=== PATIENT | female | born 1945 | race Caucasian/White ===

== ENCOUNTER 2017-02-24 01:41 | Emergency (ER) | payer OTHER ==
[~2017-02-24] VITALS: Ht 165.1 cm; Wt 86.2 kg
[2017-02-24 02:00] LABS: Allen Test Modified; Blood 02Sat 95.2 % (96-100); Blood COHb 0.4 % (0.5-1.5); Blood MetHb 0.4 % (0.0-1.5); HCO3 20.7 mmol/L (22-26.0); HHb 4.8 % (0.0-5.0); MODE MASK - BIPAP; O2Hb 94.4 % (94.0-97.0); PCO2 50.5 mmHg (35.0-45.0); PCO2(T) 50.5 mmHg (35.0-45.0); PIP 12; PO2 97.4 mmHg (80.0-100.0); PO2(T) 97.4 mmHg (80.0-100.0); Sample Type Arterial
[2017-02-24] MEDS ORDERED: FUROSEMIDE 20 MG/2 ML VIAL IV ONE (02:00)
[2017-02-24] MEDS ORDERED: IPRATROPIUM BROM 0.5 MG/2.5ML INH SOL NEB ONE (02:00)
[2017-02-24] MEDS ORDERED: ALBUTEROL SULF 2.5 MG/0.5ML(0.5%) NEB SOLN NEB ONE (02:00)
[2017-02-24 02:23] LABS: Basophils # (auto) 0 uL; Basophils % (auto) 0.2 % (0.0-2.0); Eosinophils # (auto) 0.1 uL; Eosinophils % (auto) 0.3 % (0.0-7.0); Hematocrit 37.5 % (36.0-46.0); Hemoglobin 12.4 g/dL (12.2-16.2); Lymphocytes # (auto) 1.4 uL; Lymphocytes % (auto) 6.2 % (10.0-50.0); Mean Corpuscular Hemoglobin 33.2 pg (28.0-32.0); Mean Corpuscular Volume 100.8 fL (80.0-100.0); Monocytes % (auto) 4.3 % (0.0-12.0); Neutrophils # (auto) 20.1 uL; Platelet Count (auto) 427 10^3/uL (140-450); Red Cell Distribution Width 17.1 % (11.6-16.0); SUSPECT VIEW TRANSMISSION; White Blood Cell 22.6 10^3/uL (4.4-10.8)
[2017-02-24 02:39] LABS: INR 0.98 (0.9-1.15); Partial Thromboplastin Time 25.5 sec (22.64-33.71); Prothrombin Time 10.6 sec (9.37-12.3)
[2017-02-24 02:40] LABS: Temperature: 21.2 C (20.0-25.0)
[2017-02-24 02:42] LABS: Albumin 3.9 g/dL (3.4-5.0); Anion Gap 14 (5-15); Aspartate Aminotransferase 8 U/L (15-37); BUN/Creatinine Ratio 7.4; Calcium 8.9 mg/dL (8.5-10.1); Carbon Dioxide 24 mmol/L (21-32); Chloride 102 mmol/L (98-107); GFR African American 4 mL/min; GFR Non-African American 4 mL/min; Glucose 186 mg/dL (74-106); Magnesium 2.8 mg/dL (1.6-2.6); Sodium 140 mmol/L (136-145)
[2017-02-24] MEDS ORDERED: ACETAMINOPHEN 325 MG TAB PO ONE (02:45)
[2017-02-24] MEDS ORDERED: methylPREDNISolone SOD SUCC 125 MG/2 ML VL IV ONE (02:45)
[2017-02-24 02:50] LABS: Alkaline Phosphatase 116 U/L (45-117); Bilirubin, Total 0.6 mg/dL (0.2-1.0); Total Protein 8.2 g/dL (6.4-8.2)
[2017-02-24 02:51] LABS: Blood Urea Nitrogen 81 mg/dL (7-18); Potassium 5.9 mmol/L (3.5-5.1)
[2017-02-24] MEDS ORDERED: SODIUM POLYSTYRENE SULF 15GM/60ML SUSP PO ONE (03:30)
[2017-02-24 03:58] LABS: Blood 02Sat 58.6 % (96-100); MODE MASK - BIPAP; PIP 12; Sample Type Venous; Spont Vt 458; Venous Blood COHb 0.3 % (0.5-1.5); Venous Blood Gas pH 7.271 (7.34-7.37); Venous Blood MetHb 0.5 % (0.0-1.5); Venous Blood O2Hb 58.1 % (94.0-97.0); Venous Blood PO2 < 38.3 mmHg (38.0-42.0); Venous Deoxyhemoglobin 41.1 % (0.0-5.0)
[2017-02-24 04:11] VITALS: BP 145/69
[2017-02-24 09:53] LABS: Venous Blood Gas pH 7.271 (7.34-7.37); Venous Blood PCO2 (T) 33.9 mmHg (44.0-46.0)
[2017-02-24 14:27] VITALS: BP 115/41
[2017-02-24 15:26] VITALS: BP 113/65
== END 2017-02-24 15:49 | disposition left against medical advice (07) ==
LOC: ER 01:41 → EDBD 01:41 → ER 15:49
DX: A41.9 Sepsis, unspecified organism (principal); J96.00 Acute respiratory failure, unspecified whether with hypoxia or hypercapnia; I13.2 Hypertensive heart and chronic kidney disease with heart failure and with stage 5 chronic kidney disease, or end stage renal disease; N18.6 End stage renal disease; Z99.2 Dependence on renal dialysis; E87.5 Hyperkalemia; D72.829 Elevated white blood cell count, unspecified
CPT/HCPCS: 36415; 36600; 71010; 80053; 82805; 83735; 83880; 84484; 85025; 85610; 85730; 93005; 94640; 94660; 96374; 96375; 99285; J1940; J2930

== ENCOUNTER 2017-10-07 19:13 | Emergency (ER) | payer OTHER ==
[~2017-10-07] VITALS: Ht 157.5 cm; Wt 91.6 kg
[2017-10-07 20:40] LABS: Basophils # (auto) 0.1 uL; Basophils % (auto) 0.7 % (0.0-2.0); Eosinophils # (auto) 0.2 uL; Eosinophils % (auto) 1.9 % (0.0-7.0); Hematocrit 27.9 % (36.0-46.0); Hemoglobin 9.2 g/dL (12.2-16.2); Lymphocytes # (auto) 1.2 uL; Lymphocytes % (auto) 10.7 % (10.0-50.0); Mean Corpuscular Hemoglobin 33.4 pg (28.0-32.0); Mean Corpuscular Hgb Conc. 33.1 g/dL (32.0-36.0); Monocytes # (auto) 0.9 uL; Monocytes % (auto) 7.9 % (0.0-12.0); Neutrophils # (auto) 8.7 uL; Neutrophils % (auto) 78.8 % (37.0-80.0); Nucleated Red Blood Cells % 0.1 %; Platelet Count (auto) 266 10^3/uL (140-450); Red Blood Cells 2.76 10^6/uL (4.0-5.20); Red Cell Distribution Width 14.1 % (11.8-14.3); White Blood Cell 11.1 10^3/uL (4.4-10.8)
[2017-10-07 20:56] LABS: Alanine Aminotransferase 10 U/L (13-56); Albumin 3.2 g/dL (3.4-5.0); Anion Gap 11 (5-15); Aspartate Aminotransferase 14 U/L (15-37); Blood Urea Nitrogen 65 mg/dL (7-18); Calcium 9.3 mg/dL (8.5-10.1); Carbon Dioxide 27 mmol/L (21-32); Chloride 99 mmol/L (98-107); Glucose 90 mg/dL (74-106); Magnesium 2.7 mg/dL (1.6-2.6); Potassium 5.4 mmol/L (3.5-5.1); Sodium 137 mmol/L (136-145)
[2017-10-07 21:04] LABS: Alkaline Phosphatase 86 U/L (45-117); BUN/Creatinine Ratio 6.3; Bilirubin, Total 0.7 mg/dL (0.2-1.0); GFR African American 5 mL/min; GFR Non-African American 4 mL/min; Total Protein 7.6 g/dL (6.4-8.2)
[2017-10-08 00:57] VITALS: BP 128/59
== END 2017-10-08 07:14 | disposition left against medical advice (07) ==
LOC: ER 19:13
DX: I13.2 Hypertensive heart and chronic kidney disease with heart failure and with stage 5 chronic kidney disease, or end stage renal disease (principal); N18.6 End stage renal disease; I50.9 Heart failure, unspecified; Z99.2 Dependence on renal dialysis; E87.5 Hyperkalemia; D64.9 Anemia, unspecified
CPT/HCPCS: 36415; 71010; 80053; 83735; 83880; 84484; 85025; 85379; 93005

== ENCOUNTER 2017-12-29 17:28 | Inpatient (IN) | payer OTHER ==
[~2017-12-29] VITALS: Ht 157.5 cm; Wt 93.5 kg
[2017-12-29 19:29] LABS: Basophils # (auto) 0 uL; Hemoglobin 11.5 g/dL (12.2-16.2); Lymphocytes % (auto) 13.6 % (10.0-50.0); Monocytes # (auto) 0.7 uL
[2017-12-29 19:30] LABS: Basophils % (auto) 0.6 % (0.0-2.0); Eosinophils # (auto) 0.2 uL; Eosinophils % (auto) 2.5 % (0.0-7.0); Hematocrit 35.2 % (36.0-46.0); Mean Corpuscular Hemoglobin 33.2 pg (28.0-32.0); Mean Corpuscular Hgb Conc. 32.8 g/dL (32.0-36.0); Mean Corpuscular Volume 101.3 fL (80.0-100.0); Monocytes % (auto) 10.1 % (0.0-12.0); Neutrophils # (auto) 5.2 uL; Neutrophils % (auto) 73.2 % (37.0-80.0); Nucleated Red Blood Cells % 0.1 %; Platelet Count (auto) 265 10^3/uL (140-450); Red Blood Cells 3.47 10^6/uL (4.0-5.20); Red Cell Distribution Width 15.1 % (11.8-14.3); White Blood Cell 7.2 10^3/uL (4.4-10.8)
[2017-12-29 19:48] LABS: Alanine Aminotransferase 15 U/L (13-56); Albumin 3.7 g/dL (3.4-5.0); Alkaline Phosphatase 72 U/L (45-117); Anion Gap 9 (5-15); Aspartate Aminotransferase 13 U/L (15-37); BUN/Creatinine Ratio 5.3; Bilirubin, Total 0.8 mg/dL (0.2-1.0); Blood Urea Nitrogen 43 mg/dL (7-18); Calcium 9.8 mg/dL (8.5-10.1); Carbon Dioxide 27 mmol/L (21-32); Chloride 99 mmol/L (98-107); GFR African American 6 mL/min; GFR Non-African American 5 mL/min; Glucose 74 mg/dL (74-106); Magnesium 3.1 mg/dL (1.6-2.6); Potassium 5.5 mmol/L (3.5-5.1); Sodium 135 mmol/L (136-145); Total Protein 7.9 g/dL (6.4-8.2)
[2017-12-29] MEDS ORDERED: NITROGLYCERIN 0.4 MG SL TAB SL PRN (22:30)
[2017-12-29] MEDS ORDERED: ONDANSETRON HCL 4 MG/2 ML VIAL IV PRN (22:30)
[2017-12-29] MEDS ORDERED: TEMAZEPAM 15 MG CAP PO PRN (22:30)
[2017-12-29] MEDS ORDERED: IBUPROFEN 800 MG TAB PO PRN (22:30)
[2017-12-29] MEDS ORDERED: MORPHINE SULFATE 4 MG/ML SYR/VIAL IV PRN (22:30)
[2017-12-29 23:40] VITALS: BP 121/57
[2017-12-30] MEDS ORDERED: B COCAP12 PO (01:36)
[2017-12-30] MEDS ORDERED: MID10T PO (01:36)
[2017-12-30] MEDS ORDERED: BISO5TAB44 PO (01:36)
[2017-12-30] MEDS ORDERED: FOLI1TAB6 PO (01:36)
[2017-12-30] MEDS ORDERED: AMIO200T33 PO (01:36)
[2017-12-30] MEDS ORDERED: ATOR20TA PO (01:36)
[2017-12-30 05:00] VITALS: BP 134/73
[2017-12-30] MEDS: MIDODRINE HCL 10 MG TAB PO SCH ×2 (06:00→06:10)
[2017-12-30 07:23] LABS: Basophils # (auto) 0.1 uL; Basophils % (auto) 0.9 % (0.0-2.0); Eosinophils # (auto) 0.2 uL; Eosinophils % (auto) 2.8 % (0.0-7.0); Hematocrit 32.8 % (36.0-46.0); Hemoglobin 10.7 g/dL (12.2-16.2); Lymphocytes % (auto) 15.5 % (10.0-50.0); Mean Corpuscular Hemoglobin 32.9 pg (28.0-32.0); Mean Corpuscular Hgb Conc. 32.5 g/dL (32.0-36.0); Mean Corpuscular Volume 101.1 fL (80.0-100.0); Monocytes # (auto) 0.7 uL; Monocytes % (auto) 11.1 % (0.0-12.0); Neutrophils # (auto) 4.7 uL; Neutrophils % (auto) 69.7 % (37.0-80.0); Platelet Count (auto) 245 10^3/uL (140-450); Red Blood Cells 3.25 10^6/uL (4.0-5.20); Red Cell Distribution Width 14.9 % (11.8-14.3); White Blood Cell 6.7 10^3/uL (4.4-10.8)
[2017-12-30 07:43] LABS: BUN/Creatinine Ratio 5.1; Calcium 9.3 mg/dL (8.5-10.1); Potassium 5.4 mmol/L (3.5-5.1)
[2017-12-30 08:00] VITALS: BP 143/48
[2017-12-30 09:00] VITALS: BP 143/48
[2017-12-30] MEDS: AMIODARONE HCL 200 MG TAB PO SCH (09:13)
[2017-12-30] MEDS: CALCIUM ACETATE 667 MG CAP PO SCH ×3 (09:13→18:43)
[2017-12-30] MEDS ORDERED: SODIUM POLYSTYRENE SULF 15GM/60ML SUSP PO ONE (11:00)
[2017-12-30 12:00] VITALS: BP 124/67
[2017-12-30] MEDS ORDERED: MIDODRINE HCL 10 MG TAB PO SCH (12:00)
[2017-12-30] MEDS ORDERED: LOPERAMIDE HCL 2 MG CAP PO ONE (15:15)
[2017-12-30] MEDS ORDERED: IOHEXOL 350 MG/ML 100ML IJ ONE (16:53)
[2017-12-30 17:00] VITALS: BP 104/57
[2017-12-30 21:55] VITALS: BP 113/59
[2017-12-30] MEDS: ATORVASTATIN 20 MG TAB PO SCH (22:18)
[2017-12-31] VITALS (7 sets, daily range): BP systolic 101–139; BP diastolic 40–63
[2017-12-31 05:49] LABS: Basophils # (auto) 0.1 uL; Basophils % (auto) 1.1 % (0.0-2.0); Eosinophils # (auto) 0.2 uL; Eosinophils % (auto) 2.8 % (0.0-7.0); Hematocrit 32.6 % (36.0-46.0); Hemoglobin 10.7 g/dL (12.2-16.2); Lymphocytes # (auto) 1.1 uL; Lymphocytes % (auto) 17.1 % (10.0-50.0); Mean Corpuscular Hemoglobin 33.1 pg (28.0-32.0); Mean Corpuscular Hgb Conc. 32.9 g/dL (32.0-36.0); Mean Corpuscular Volume 100.8 fL (80.0-100.0); Monocytes # (auto) 0.9 uL; Monocytes % (auto) 13.4 % (0.0-12.0); Neutrophils # (auto) 4.2 uL; Neutrophils % (auto) 65.6 % (37.0-80.0); Nucleated Red Blood Cells % 0.1 %; Platelet Count (auto) 236 10^3/uL (140-450); Red Blood Cells 3.23 10^6/uL (4.0-5.20); White Blood Cell 6.4 10^3/uL (4.4-10.8)
[2017-12-31 06:11] LABS: Albumin 3.2 g/dL (3.4-5.0); BUN/Creatinine Ratio 5.4; Bilirubin, Total 0.6 mg/dL (0.2-1.0); Calcium 9.3 mg/dL (8.5-10.1)
[2017-12-31] MEDS: CALCIUM ACETATE 667 MG CAP PO SCH ×3 (08:42→18:33)
[2017-12-31] MEDS ORDERED: EPOETIN ALFA 2,000 UNIT/1 ML VIAL IV ONE (10:45)
[2017-12-31] MEDS ORDERED: SODIUM CHL 0.9% 1000 ML BAG XX ONE (10:45)
[2017-12-31] MEDS ORDERED: HEPARIN 1,000 UNITS/ml 1ML VIAL IV ONE ×3 (14:30)
[2017-12-31] MEDS ORDERED: ALBUMIN 25% 100 ML IV ONE (14:30)
[2017-12-31] MEDS: AMIODARONE HCL 200 MG TAB PO SCH (18:33)
[2017-12-31] MEDS: ATORVASTATIN 20 MG TAB PO SCH (21:17)
[2018-01-01 04:59] VITALS: BP 140/60
[2018-01-01] MEDS ORDERED: CALC667C5 PO (06:18)
[2018-01-01 09:00] VITALS: BP 129/72
[2018-01-01] MEDS: CALCIUM ACETATE 667 MG CAP PO SCH ×2 (09:07→12:14)
[2018-01-01] MEDS: AMIODARONE HCL 200 MG TAB PO SCH (09:07)
[2018-01-01 13:00] VITALS: BP 133/76
[2018-01-01] MEDS ORDERED: CARVEDILOL 3.125 MG TAB PO SCH (22:00)
== END 2018-01-01 21:39 | disposition home or self-care (01) | DRG 291 ==
LOC: EDBD 17:28 → ER 17:28 → EAST 17:29 → TELE-EAST 23:12
PROVIDERS: ADMIT Nurse Practitioner Family; ATTEND Internal Medicine
PROC: 5A1D70Z Performance of Urinary Filtration, Intermittent, Less than 6 Hours Per Day (ICD-10-PCS; principal; 2017-12-31)
DX: I13.2 Hypertensive heart and chronic kidney disease with heart failure and with stage 5 chronic kidney disease, or end stage renal disease (principal); N18.6 End stage renal disease; J96.90 Respiratory failure, unspecified, unspecified whether with hypoxia or hypercapnia; I50.23 Acute on chronic systolic (congestive) heart failure; J98.11 Atelectasis; E87.5 Hyperkalemia; I48.91 Unspecified atrial fibrillation; D64.9 Anemia, unspecified; M10.9 Gout, unspecified; E78.5 Hyperlipidemia, unspecified; G47.30 Sleep apnea, unspecified; I70.0 Atherosclerosis of aorta; J44.9 Chronic obstructive pulmonary disease, unspecified; Z82.49 Family history of ischemic heart disease and other diseases of the circulatory system; Z83.3 Family history of diabetes mellitus; Z86.73 Personal history of transient ischemic attack (TIA), and cerebral infarction without residual deficits; Z87.891 Personal history of nicotine dependence; Z91.19 Patient's noncompliance with other medical treatment and regimen; Z95.810 Presence of automatic (implantable) cardiac defibrillator; Z99.2 Dependence on renal dialysis; Z90.49 Acquired absence of other specified parts of digestive tract; Z79.899 Other long term (current) drug therapy
CPT/HCPCS: 36415; 36600; 71045; 71275; 80048; 80053; 82805; 83735; 83880; 84484; 85025; 85379; 87081; 90935; 93005; 93306; P9047

== ENCOUNTER 2018-02-02 05:56 | Emergency (ER) | payer OTHER ==
[~2018-02-02] VITALS: Ht 157.5 cm; Wt 88.5 kg
[~2018-02-02 05:56] MED LIST: AMIO200T33 PO; ATOR20TA PO; B COCAP12 PO; BISO5TAB44 PO; CALC667C5 PO; FOLI1TAB6 PO; MID10T PO
[2018-02-02 06:34] LABS: Basophils # (auto) 0.1 uL; Basophils % (auto) 0.8 % (0.0-2.0); Eosinophils # (auto) 0.1 uL; Eosinophils % (auto) 0.8 % (0.0-7.0); Hematocrit 36.9 % (36.0-46.0); Hemoglobin 11.7 g/dL (12.2-16.2); Lymphocytes % (auto) 6.9 % (10.0-50.0); Mean Corpuscular Hemoglobin 32.1 pg (28.0-32.0); Mean Corpuscular Hgb Conc. 31.8 g/dL (32.0-36.0); Mean Corpuscular Volume 100.9 fL (80.0-100.0); Monocytes # (auto) 0.8 uL; Monocytes % (auto) 5.3 % (0.0-12.0); Neutrophils # (auto) 12.7 uL; Neutrophils % (auto) 86.2 % (37.0-80.0); Nucleated Red Blood Cells % 0.2 %; Platelet Count (auto) 339 10^3/uL (140-450); Red Blood Cells 3.66 10^6/uL (4.0-5.20); Red Cell Distribution Width 15.4 % (11.8-14.3); White Blood Cell 14.7 10^3/uL (4.4-10.8)
[2018-02-02 07:10] LABS: Alanine Aminotransferase 16 U/L (13-56); Albumin 3.4 g/dL (3.4-5.0); Alkaline Phosphatase 76 U/L (45-117); Anion Gap 13 (5-15); Aspartate Aminotransferase 8 U/L (15-37); BUN/Creatinine Ratio 6.4; Bilirubin, Total 0.6 mg/dL (0.2-1.0); Blood Urea Nitrogen 74 mg/dL (7-18); Calcium 9.6 mg/dL (8.5-10.1); Carbon Dioxide 25 mmol/L (21-32); Chloride 102 mmol/L (98-107); GFR African American 4 mL/min; GFR Non-African American 3 mL/min; Glucose 106 mg/dL (74-106); Magnesium 3.2 mg/dL (1.6-2.6); Potassium 5.4 mmol/L (3.5-5.1); Sodium 140 mmol/L (136-145); Total Protein 8.1 g/dL (6.4-8.2)
[2018-02-02] MEDS ORDERED: ALBUTEROL SULF 2.5 MG/0.5ML(0.5%) NEB SOLN NEB STA (07:22)
[2018-02-02] MEDS ORDERED: SODIUM BICARBONATE 8.4% INJ 50ML SYRINGE IV ONE (07:30)
[2018-02-02] MEDS ORDERED: CALCIUM GLUC 4.65meq/50ml D5AE 50 ML IV ONE (07:30)
[2018-02-02] MEDS ORDERED: DEXTROSE (50%) 50ML SYRG IV ONE (07:30)
[2018-02-02] MEDS ORDERED: InsuLIN REG 1unit/0.01ml Soln (100units/ml) IV ONE (07:30)
[2018-02-02] MEDS ORDERED: PIPERACILLIN-TAZOB 3.375GM 100 ML IV ONE (07:45)
[2018-02-02 09:06] VITALS: BP 123/51
== END 2018-02-02 09:27 | disposition short-term general hospital (02) ==
LOC: EDBD 05:56 → ER 06:00
DX: I13.2 Hypertensive heart and chronic kidney disease with heart failure and with stage 5 chronic kidney disease, or end stage renal disease (principal); N18.6 End stage renal disease; E87.5 Hyperkalemia; I50.9 Heart failure, unspecified; J44.9 Chronic obstructive pulmonary disease, unspecified; E78.5 Hyperlipidemia, unspecified; Z90.89 Acquired absence of other organs; Z90.49 Acquired absence of other specified parts of digestive tract
CPT/HCPCS: 36415; 71045; 80053; 82962; 83605; 83735; 83880; 84484; 85025; 87040; 93005; 94640; 96365; 96375; 99291; J0610; J1815; J2543; J7042

== ENCOUNTER 2018-05-17 14:40 | Emergency (ER) | payer OTHER ==
[~2018-05-17] VITALS: Ht 157.5 cm; Wt 88.5 kg
[2018-05-17 15:57] LABS: Hemoglobin 11.7 g/dL (12.2-16.2); Mean Corpuscular Volume 102.4 fL (80.0-100.0); Neutrophils # (auto) 6.2 uL; White Blood Cell 8.6 10^3/uL (4.4-10.8)
[2018-05-17 15:59] LABS: Basophils # (auto) 0.1 uL; Basophils % (auto) 0.7 % (0.0-2.0); Eosinophils # (auto) 0.2 uL; Eosinophils % (auto) 1.8 % (0.0-7.0); Hematocrit 35.6 % (36.0-46.0); Lymphocytes # (auto) 1.5 uL; Lymphocytes % (auto) 17.9 % (10.0-50.0); Mean Corpuscular Hemoglobin 33.6 pg (28.0-32.0); Mean Corpuscular Hgb Conc. 32.8 g/dL (32.0-36.0); Monocytes # (auto) 0.7 uL; Monocytes % (auto) 7.6 % (0.0-12.0); Platelet Count (auto) 329 10^3/uL (140-450); Red Blood Cells 3.48 10^6/uL (4.0-5.20)
[2018-05-17 16:12] LABS: Albumin 3.5 g/dL (3.4-5.0)
[2018-05-17 16:19] LABS: Potassium 6.9 mmol/L (3.5-5.1)
[2018-05-17 16:20] LABS: Bilirubin, Total 0.6 mg/dL (0.2-1.0); Total Protein 8.3 g/dL (6.4-8.2)
[2018-05-17] MEDS ORDERED: InsuLIN REG 1unit/0.01ml Soln (100units/ml) IV ONE (17:00)
[2018-05-17] MEDS ORDERED: DEXTROSE (50%) 50ML SYRG IV ONE (17:00)
[2018-05-17] MEDS ORDERED: SODIUM POLYSTYRENE SULF 15GM/60ML SUSP PO ONE (17:00)
[2018-05-17] MEDS ORDERED: SODIUM BICARBONATE 8.4% INJ 50ML SYRINGE IV ONE (17:15)
[2018-05-18 00:11] VITALS: BP 144/72
== END 2018-05-18 00:39 | disposition short-term general hospital (02) ==
LOC: ER 14:40
DX: T82.898A Other specified complication of vascular prosthetic devices, implants and grafts, initial encounter (principal); I13.2 Hypertensive heart and chronic kidney disease with heart failure and with stage 5 chronic kidney disease, or end stage renal disease; I50.9 Heart failure, unspecified; N18.6 End stage renal disease; R11.0 Nausea; E87.5 Hyperkalemia; J44.9 Chronic obstructive pulmonary disease, unspecified; E78.5 Hyperlipidemia, unspecified; Z99.2 Dependence on renal dialysis; Z88.6 Allergy status to analgesic agent; Z88.8 Allergy status to other drugs, medicaments and biological substances; Z79.899 Other long term (current) drug therapy; Z86.73 Personal history of transient ischemic attack (TIA), and cerebral infarction without residual deficits; Z90.49 Acquired absence of other specified parts of digestive tract; Z95.810 Presence of automatic (implantable) cardiac defibrillator; Y84.1 Kidney dialysis as the cause of abnormal reaction of the patient, or of later complication, without mention of misadventure at the time of the procedure; Y92.89 Other specified places as the place of occurrence of the external cause
CPT/HCPCS: 36415; 71045; 80053; 84132; 84484; 85025; 93005; 96374; 96375; 99291; J1815; J7042

== ENCOUNTER 2019-07-29 08:08 | Emergency (ER) | payer OTHER ==
[~2019-07-29] VITALS: Ht 167.6 cm; Wt 86.2 kg
[2019-07-29] MEDS ORDERED: DOPamine 1600MCG/ML D5W 250 ML IV ONE (10:00)
[2019-07-29 10:15] VITALS: BP 119/63
== END 2019-07-29 10:32 | disposition short-term general hospital (02) ==
LOC: EDBD 08:08 → ER 08:08
DX: I60.9 Nontraumatic subarachnoid hemorrhage, unspecified (principal); G93.41 Metabolic encephalopathy; I13.2 Hypertensive heart and chronic kidney disease with heart failure and with stage 5 chronic kidney disease, or end stage renal disease; N18.6 End stage renal disease; I50.9 Heart failure, unspecified; Z99.2 Dependence on renal dialysis; J44.9 Chronic obstructive pulmonary disease, unspecified; E78.00 Pure hypercholesterolemia, unspecified; Z86.73 Personal history of transient ischemic attack (TIA), and cerebral infarction without residual deficits; Z88.5 Allergy status to narcotic agent; Z88.6 Allergy status to analgesic agent; Z88.8 Allergy status to other drugs, medicaments and biological substances
CPT/HCPCS: 70450; 71045; 73030; 93005; 96365; 99291; J1265

== ENCOUNTER 2020-06-08 17:16 | Inpatient (IN) | payer OTHER ==
[~2020-06-08] VITALS: Ht 157.5 cm; Wt 94.7 kg
[2020-06-08] MEDS ORDERED: cefTRIAXone 1GM/50ML D5W 50 ML IV ONE ×2 (17:28→17:30)
[2020-06-08] MEDS ORDERED: DexAMETHasone SOD PHOS 10MG/1ML VIAL INJ ONE (17:28)
[2020-06-08] MEDS ORDERED: DexAMETHasone SOD PHOS 10MG/1ML VIAL INJ IV ONE (17:30)
[2020-06-08] MEDS ORDERED: DOXYCYCLINE 100 MG TAB/CAP PO ONE (17:30)
[2020-06-08 18:34] LABS: Basophils # (auto) 0 10 ^3/uL (0-0.2); Eosinophils # (auto) 0 10 ^3/uL (0-0.8); Hemoglobin 10.4 g/dL (12.2-16.2); Lymphocytes # (auto) 0.7 10 ^3/uL (0.4-5.4); Neutrophils # (auto) 6.1 10 ^3/uL (1.6-8.6); White Blood Cell 7.8 10^3/uL (4.4-10.8)
[2020-06-08 18:36] LABS: Basophils % (auto) 0.2 % (0.0-2.0); Hematocrit 31.3 % (36.0-46.0); Lymphocytes % (auto) 9.1 % (10.0-50.0); Mean Corpuscular Hemoglobin 33.6 pg (28.0-32.0); Mean Corpuscular Hgb Conc. 33.1 g/dL (32.0-36.0); Mean Corpuscular Volume 101.4 fL (80.0-100.0); Neutrophils % (auto) 77.7 % (37.0-80.0); Nucleated Red Blood Cells % 0.1 %; Platelet Count (auto) 253 10^3/uL (140-450); Red Blood Cells 3.09 10^6/uL (4.0-5.20); Red Cell Distribution Width 14.8 % (11.8-14.3)
[2020-06-08 18:42] LABS: Albumin 2.7 g/dL (3.4-5.0); Calcium 7.1 mg/dL (8.5-10.1); Magnesium 2.4 mg/dL (1.6-2.6); Potassium 3.8 mmol/L (3.5-5.1)
[2020-06-08 18:51] LABS: BUN/Creatinine Ratio 6.9; Bilirubin, Total 0.9 mg/dL (0.2-1.0); CRP High Sensitivity 8.85 mg/dL (< 0.3); Total Protein 6.6 g/dL (6.4-8.2)
[2020-06-08] MEDS ORDERED: ACETAMINOPHEN 325 MG TAB PO PRN (21:30)
[2020-06-08] MEDS ORDERED: ONDANSETRON HCL 4 MG/2 ML VIAL IV PRN (21:30)
[2020-06-08] MEDS ORDERED: ACETAMINOPHEN 500 MG TAB PO PRN (21:30)
[2020-06-08] MEDS ORDERED: MIDODRINE HCL 10 MG TAB PO PRN (21:30)
[2020-06-08] MEDS ORDERED: DOCUSATE SOD 100 MG CAP PO PRN (21:30)
[2020-06-08] MEDS: ALBUTEROL SULF HFA 90MCG INH 200DOSE IN SCH (22:00)
--- NOTE | 2020-06-08 22:08 | NUR ---
DEBBY TX, ALBUTEROL 90MCG HELD DUE TO PENDING COVID RESULTS.
[2020-06-08 22:13] VITALS: BP 138/72
[2020-06-08] MEDS: CALCIUM ACETATE 667 MG CAP PO SCH (23:03)
[2020-06-08] MEDS: DOXYCYCLINE 100 MG TAB/CAP PO SCH (23:03)
[2020-06-08] MEDS: ATORVASTATIN 20 MG TAB PO SCH (23:03)
[2020-06-08 23:20] VITALS: BP 127/61
--- NOTE | 2020-06-08 23:20 | NUR ---
Telemetry admit from ER EDILBERTOHOMAR admitted to Telemetry unit after SBAR received. Patient oriented to FAUSTO DURAN, primary RN, unit, room, bed, and unit policies regarding patient care and visiting hours. Patient now on continuous telemetry monitoring, tele box #3 and telemetry reading on arrival to unit is normal sinus rhythm. Patient placed on bedside oxygen 5l nasal cannula, weighed by bedscale and encouraged to call if they need something. All questions and concerns addressed, patient verbalized understanding.Pt is A0x4 no s/s of distress or sob noted.
[2020-06-08 23:48] VITALS: BP 127/61
[2020-06-09] MEDS ORDERED: BUTA1CAP4 PO (03:52)
[2020-06-09] MEDS: CALCIUM ACETATE 667 MG CAP PO SCH ×3 (05:42→22:55)
[2020-06-09 05:53] VITALS: BP 101/36
[2020-06-09] MEDS: ALBUTEROL SULF HFA 90MCG INH 200DOSE IN SCH ×3 (06:00→21:34)
--- NOTE | 2020-06-09 06:54 | NUR ---
closing shift notes pt has no s/s of distress or pain at this time will endorse care to day shift RN
[2020-06-09 07:31] LABS: Basophils # (auto) 0 10 ^3/uL (0-0.2); Basophils % (auto) 0.3 % (0.0-2.0); Eosinophils # (auto) 0 10 ^3/uL (0-0.8); Hematocrit 32.8 % (36.0-46.0); Hemoglobin 10.6 g/dL (12.2-16.2); Lymphocytes # (auto) 0.5 10 ^3/uL (0.4-5.4); Lymphocytes % (auto) 9.5 % (10.0-50.0); Mean Corpuscular Hemoglobin 33.6 pg (28.0-32.0); Mean Corpuscular Hgb Conc. 32.4 g/dL (32.0-36.0); Mean Corpuscular Volume 103.8 fL (80.0-100.0); Monocytes # (auto) 0.1 10 ^3/uL (0-1.3); Monocytes % (auto) 2.6 % (0.0-12.0); Neutrophils # (auto) 4.7 10 ^3/uL (1.6-8.6); Neutrophils % (auto) 87.6 % (37.0-80.0); Nucleated Red Blood Cells % 0.1 %; Platelet Count (auto) 214 10^3/uL (140-450); Red Blood Cells 3.16 10^6/uL (4.0-5.20); Red Cell Distribution Width 14.9 % (11.8-14.3); White Blood Cell 5.4 10^3/uL (4.4-10.8)
--- NOTE | 2020-06-09 07:35 | NUR ---
0600 SCHEDULED MDI NON ADMINISTERED AT THIS TIME. PT PENDING COVID 19 TEST RESULTS. PT IS ON 3LNC, SPO2 94%, HR 56, RR 18. NO S/S OF RESPIRATORY DISTRESS. LUNGS ARE DIMINISHED. WILL CONTINUE TO MONITOR.
[2020-06-09 07:40] LABS: Albumin 2.6 g/dL (3.4-5.0); BUN/Creatinine Ratio 7.5; Bilirubin, Total 0.8 mg/dL (0.2-1.0); Calcium 7.3 mg/dL (8.5-10.1); Total Protein 7.1 g/dL (6.4-8.2)
[2020-06-09 07:41] LABS: Magnesium 2.7 mg/dL (1.6-2.6)
[2020-06-09] MEDS ORDERED: CYANOCOBALAMIN 500 MCG TAB PO SCH (08:00)
--- NOTE | 2020-06-09 08:09 | NUR ---
DRAKE ARNETT RE: CRITICAL BUN 103 AND CREATNINE 13.8 LEFT UNABLE TO REACH WILL RE ABDELRAHMAN IVAN
[2020-06-09] MEDS: DOXYCYCLINE 100 MG TAB/CAP PO SCH ×2 (08:39→22:54)
[2020-06-09 09:00] VITALS: BP 127/65
--- NOTE | 2020-06-09 09:30 | NUR ---
PAGED MD OSCAR RE: CRITICAL BUN 103 AND CREATNINE 13.8. LEFT MESSAGE WITH RODDING MACHINE TENDER SARINA. PER SARINA SHE WILL SEND PAGE OUT. AWAITING CALL BACK AT THIS TIME.
[2020-06-09] MEDS ORDERED: FOLIC ACID 400 MCG TAB PO SCH (10:00)
[2020-06-09] MEDS ORDERED: AMIODARONE HCL 200 MG TAB PO SCH (10:00)
[2020-06-09] MEDS ORDERED: ENOXAPARIN SOD 40 MG/0.4 ML SYRINGE SC SCH (10:00)
[2020-06-09] MEDS ORDERED: BISOPROLOL FUMARATE 2.5 MG PO SCH (10:00)
[2020-06-09] MEDS ORDERED: ASCORBIC ACID 1,000 MG TAB PO SCH (10:00)
[2020-06-09] MEDS ORDERED: ZINC SULFATE 220mg CAP or TAB PO SCH (10:00)
[2020-06-09 12:00] VITALS: BP 122/56
--- NOTE | 2020-06-09 13:04 | NUR ---
PAGED MD ZAVALETA RE: PT COMPLAINING " I HAVE AN UP-SET STOMACH AND HAVE BEEN HAVING CONSISTENT DIARRHEA, IS THERE ANYTHING THAT I CAN GET LIKE IMMODIUM" AWAITING CALL BACK
[2020-06-09] MEDS ORDERED: DEXTROSE (50%) 50ML SYRG IV PRN (13:45)
--- NOTE | 2020-06-09 14:56 | NUR ---
1439 06/09/20 - Faxed to [facility] atn [phone] face sheet,order for transfer to [facility], labs, meds, notice regarding post stabilization. Contacted [facility] supportive employment case manager Kim at [phone], who stated she is working on bed and setting up transportation and will call with an update.
--- NOTE | 2020-06-09 15:29 | NUR ---
1400 MDI NOT ADMINISTERED. PT PENDING COVID 19 TEST RESULT. PT IS ON 2LNC, SPO2 95%, HR 60, RR 20. NO S/S OF RESPIRATORY DISTRESS. LUNGS ARE DIMINISHED.
[2020-06-09 16:00] VITALS: BP 134/70
--- NOTE | 2020-06-09 16:10 | NUR ---
CAROLEE FRAMING MANAGER FROM [facility] CALLED REQUIRED INFORMATION AND WOULD LIKE TO KNOW WHEN PATIENT WILL BE DIALYZED. ACCORDING TO DIALYSIS CENTER THEY WILL BE IN TO DIALYZE PATIENT AROUND 1645. FRAMING MANAGER UPDATED. PER FRAMING MANAGER "PICKUP TIME WILL BE AROUND 1930 LONG DIALYSIS IS FINISHED.
[2020-06-09 16:32] VITALS: BP 122/75
[2020-06-09] MEDS: InsuLIN REG 1unit/0.01ml Soln (100units/ml) SC SCH ×2 (17:00→22:51)
[2020-06-09] MEDS: ACCU-CHEK COMFORT CURVE STRIP VI SCH ×2 (17:00→22:53)
--- NOTE | 2020-06-09 17:45 | NUR ---
CALLED REPORT TO TALA LEDESMA RN AT [facility]
--- NOTE | 2020-06-09 18:32 | NUR ---
COVID SWAB OBTAINED AND WALKED TO LAB BY RESOURCE TALA BENDER
--- NOTE | 2020-06-09 19:20 | NUR ---
Opening Shift Note Assumed care of patient, awake and alert. No S/S of distress/SOB or pain. Instructed on POC and to call for assist PRN, will continue to monitor for changes Q1hr and PRN.
[2020-06-09] MEDS ORDERED: SODIUM CHL 0.9% 1000 ML BAG XX ONE (19:30)
--- NOTE | 2020-06-09 21:36 | NUR ---
MDI TX HELD, PT IN NO RESPIRATORY DISTRESS. COVID RESULTS PENDING.
[2020-06-09 22:00] VITALS: BP 117/54
[2020-06-09] MEDS: ATORVASTATIN 20 MG TAB PO SCH (22:55)
--- NOTE | 2020-06-10 00:08 | NUR ---
Discharge instructions given as ordered. Encourage to follow up with PMD as instructed. All questions and concerns addressed. Patient verbalized understanding. Medication reconciliation form completed and copy given to patient. Telemetry unit returned to ICU. Patient taken to ante room via wheelchair with all personal belongings, accompanied by staff and transportation. No distress noted at time of departure.
[2020-06-10] MEDS ORDERED: DexAMETHasone SOD PHOS 10MG/1ML VIAL INJ IV SCH (10:00)
== END 2020-06-10 00:06 | disposition short-term general hospital (02) | DRG 177 ==
LOC: EDBD 17:16 → ER 17:16 → TELE 17:17 → TELE-EAST 23:20
PROVIDERS: ADMIT Hospitalist; ATTEND Internal Medicine
PROC: 5A1D70Z Performance of Urinary Filtration, Intermittent, Less than 6 Hours Per Day (ICD-10-PCS; principal; 2020-06-09)
DX: U07.1 COVID-19 (principal); N18.6 End stage renal disease; I13.2 Hypertensive heart and chronic kidney disease with heart failure and with stage 5 chronic kidney disease, or end stage renal disease; I48.20 Chronic atrial fibrillation, unspecified; I50.42 Chronic combined systolic (congestive) and diastolic (congestive) heart failure; R05 Cough; E78.5 Hyperlipidemia, unspecified; R19.7 Diarrhea, unspecified; D53.9 Nutritional anemia, unspecified; J44.9 Chronic obstructive pulmonary disease, unspecified; D63.8 Anemia in other chronic diseases classified elsewhere; Z86.73 Personal history of transient ischemic attack (TIA), and cerebral infarction without residual deficits; Z99.2 Dependence on renal dialysis; Z95.810 Presence of automatic (implantable) cardiac defibrillator; Z90.49 Acquired absence of other specified parts of digestive tract
CPT/HCPCS: 36415; 71045; 80053; 80061; 82728; 82962; 83036; 83605; 83615; 83735; 83880; 84484; 85025; 86141; 87040; 87426; 90935; G0378; J0696; J1100; J1642; J1815

== ENCOUNTER 2024-05-17 01:34 | Inpatient (IN) | payer OTHER ==
[~2024-05-17] VITALS: Ht 154.9 cm; Wt 76.3 kg
[~2024-05-17 01:34] MED LIST changes: +BUTA1CAP4 PO; +FOLI-119 PO; -FOLI1TAB6 PO; +MIDO5TAB4 PO; +SEVE800T8 PO
[2024-05-17 02:27] LABS: INR 1.02 (0.9-1.15); Partial Thromboplastin Time 23.1 SEC (24.5-34.5); Prothrombin Time 10.8 sec (9.3-11.8)
[2024-05-17 02:31] LABS: Albumin 3.6 g/dL (3.2-4.8); Alkaline Phosphatase 75 U/L (46-116); Anion Gap 7 (5-15); Aspartate Aminotransferase 9 U/L (13-40); BUN/Creatinine Ratio 5.9 (10.0-20.0); Blood Urea Nitrogen 49 mg/dL (9-23); Calcium 9.7 mg/dL (8.7-10.4); Carbon Dioxide 27 mmol/L (20-30); Chloride 100 mmol/L (98-107); Glucose 82 mg/dL (74-106); Sodium 134 mmol/L (136-145)
[2024-05-17 02:32] LABS: Bilirubin, Total 0.4 mg/dL (0.2-1.0); Total Protein 8.9 g/dL (5.7-8.2)
[2024-05-17 02:50] VITALS: PULSE 64; RESP 22; O2SAT 92
[2024-05-17 02:54] LABS: Alanine Aminotransferase < 9 U/L (7-40)
[2024-05-17 02:56] LABS: Potassium 6.8 mmol/L (3.5-5.1)
[2024-05-17 03:05] LABS: Basophils # (auto) 0.1 10 ^3/uL (0-0.2); Eosinophils # (auto) 0.2 10 ^3/uL (0-0.8); Eosinophils % (auto) 3.1 % (0.0-7.0); Hematocrit 35.1 % (36.0-46.0); Hemoglobin 11.3 g/dL (12.2-16.2); Lymphocytes # (auto) 1.3 10 ^3/uL (0.4-5.4); Lymphocytes % (auto) 20.6 % (10.0-50.0); Mean Corpuscular Hgb Conc. 32.2 g/dL (32.0-36.0); Mean Corpuscular Volume 93.4 fL (80.0-100.0); Monocytes # (auto) 0.7 10 ^3/uL (0-1.3); Monocytes % (auto) 10.9 % (0.0-12.0); Neutrophils # (auto) 4.2 10 ^3/uL (1.6-8.6); Neutrophils % (auto) 64.4 % (37.0-80.0); Nucleated Red Blood Cells % 0.1 %; Red Blood Cells 3.75 10^6/uL (4.0-5.20); Red Cell Distribution Width 17.5 % (11.8-14.3); White Blood Cell 6.5 10^3/uL (4.4-10.8)
[2024-05-17] MEDS: ALBUTEROL SULF 2.5 MG/0.5ML(0.5%) NEB SOLN NEB ONE (03:17)
[2024-05-17] MEDS: SODIUM ZIRCONIUM CYCL 10 GM PAK PO ONE (03:59)
[2024-05-17] MEDS: SODIUM BICARB 8.4% 50Meq/50ml SYR Vial IV ONE ×2 (04:00→04:04)
[2024-05-17] MEDS: InsuLIN REG 1unit/0.01ml Soln (100units/ml) IV ONE (04:01)
[2024-05-17] MEDS: DEXTROSE (50%) 50ML SYRG IV ONE (04:01)
[2024-05-17] MEDS: CALCIUM CHL 100MG/ML 500 MG in D5W 5% 100 ML IV ONE (04:04)
[2024-05-17 08:00] VITALS: PULSE 66; RESP 14; O2SAT 97
[2024-05-17] MEDS ORDERED: IBUPROFEN 600 MG TAB PO PRN (14:30)
[2024-05-17] MEDS ORDERED: ONDANSETRON HCL 4 MG/2 ML VIAL IV PRN (14:30)
[2024-05-17] MEDS ORDERED: DOCUSATE SOD 100 MG CAP PO PRN (14:30)
[2024-05-17] MEDS ORDERED: NITROGLYCERIN 0.4 MG SL TAB SL PRN (14:45)
[2024-05-17 15:51] LABS: % Iron Saturation 22.2 % (15-50)
[2024-05-17] MEDS: SODIUM CHL 0.9% 1000 ML BAG XX ONE (16:00)
[2024-05-17 16:31] VITALS: BP 121/58; PULSE 66; RESP 20; O2SAT 97
[2024-05-17] MEDS: ALBUTEROL SULF 2.5 MG/0.5ML(0.5%) NEB SOLN NEB PRN (16:31)
[2024-05-17 18:10] LABS: Chloride 101 mmol/L (98-107); Sodium 136 mmol/L (136-145)
[2024-05-17 18:11] LABS: Anion Gap 14 (5-15); Carbon Dioxide 21 mmol/L (20-30)
[2024-05-17 18:12] LABS: Calcium 9.6 mg/dL (8.7-10.4)
[2024-05-17 18:16] LABS: Glucose 84 mg/dL (74-106)
[2024-05-17 18:17] LABS: BUN/Creatinine Ratio 6.3 (10.0-20.0); Blood Urea Nitrogen 52 mg/dL (9-23)
[2024-05-17] MEDS: SEVELAMER 800 MG TAB PO SCH (19:20)
[2024-05-17 20:00] VITALS: PULSE 61; RESP 18; O2SAT 99
[2024-05-17] MEDS: ATORVASTATIN 20 MG TAB PO SCH (22:09)
[2024-05-17] MEDS: SODIUM CHLOR 0.9% PF (SALINE LOCK) 10ML VIAL/SYR IV SCH (22:09)
[2024-05-17 23:23] VITALS: BP 123/55; PULSE 64; RESP 19; TEMP 97.4; O2SAT 95
[2024-05-18] VITALS (8 sets, daily range): BP systolic 115–123; BP diastolic 49–81; PULSE 64–75; RESP 14–20; TEMP 97.2–97.7; O2SAT 92–100
[2024-05-18 06:59] LABS: Albumin 3.5 g/dL (3.2-4.8); Alkaline Phosphatase 71 U/L (46-116); Anion Gap 8 (5-15); Aspartate Aminotransferase 11 U/L (13-40); BUN/Creatinine Ratio 4.9 (10.0-20.0); Basophils # (auto) 0.1 10 ^3/uL (0-0.2); Basophils % (auto) 1.2 % (0.0-2.0); Bilirubin, Total 0.5 mg/dL (0.2-1.0); Calcium 9.2 mg/dL (8.7-10.4); Carbon Dioxide 29 mmol/L (20-30); Chloride 99 mmol/L (98-107); Eosinophils # (auto) 0.2 10 ^3/uL (0-0.8); Eosinophils % (auto) 3.2 % (0.0-7.0); Glucose 75 mg/dL (74-106); Hematocrit 32.6 % (36.0-46.0); Hemoglobin 10.6 g/dL (12.2-16.2); Lymphocytes # (auto) 0.8 10 ^3/uL (0.4-5.4); Lymphocytes % (auto) 15.1 % (10.0-50.0); Mean Corpuscular Hemoglobin 29.9 pg (28.0-32.0); Mean Corpuscular Hgb Conc. 32.5 g/dL (32.0-36.0); Mean Corpuscular Volume 92.1 fL (80.0-100.0); Monocytes # (auto) 0.6 10 ^3/uL (0-1.3); Monocytes % (auto) 11.9 % (0.0-12.0); Neutrophils # (auto) 3.6 10 ^3/uL (1.6-8.6); Neutrophils % (auto) 68.6 % (37.0-80.0); Nucleated Red Blood Cells % 0.2 %; Potassium 5.3 mmol/L (3.5-5.1); Red Blood Cells 3.54 10^6/uL (4.0-5.20); Red Cell Distribution Width 16.8 % (11.8-14.3); Sodium 136 mmol/L (136-145); Total Protein 8.4 g/dL (5.7-8.2); White Blood Cell 5.2 10^3/uL (4.4-10.8)
[2024-05-18 07:00] LABS: Alanine Aminotransferase < 9 U/L (7-40); Blood Urea Nitrogen 28 mg/dL (9-23)
[2024-05-18] MEDS: LACTULOSE 20Gm/30ML SOLN PO STA (10:31)
[2024-05-18] MEDS: ASPirin 81 mg TAB PO SCH (10:32)
[2024-05-18] MEDS: B-COMPLEX W/ C & FOLIC ACID(NEPHROVITE TAB) PO SCH (10:32)
[2024-05-18] MEDS ORDERED: ALBUTEROL SULF 2.5 MG/0.5ML(0.5%) NEB SOLN NEB STA (12:50)
[2024-05-18] MEDS: SODIUM ZIRCONIUM CYCL 10 GM PAK PO STA (13:13)
[2024-05-18] MEDS: ALBUTEROL SULF 2.5 MG/0.5ML(0.5%) NEB SOLN NEB ONE (13:36)
[2024-05-18 15:27] LABS: Chloride 98 mmol/L (98-107); Sodium 133 mmol/L (136-145)
[2024-05-18 15:28] LABS: Anion Gap 9 (5-15); Calcium 9.8 mg/dL (8.7-10.4); Carbon Dioxide 26 mmol/L (20-30)
[2024-05-18 15:33] LABS: BUN/Creatinine Ratio 4.5 (10.0-20.0); Blood Urea Nitrogen 27 mg/dL (9-23); Glucose 89 mg/dL (74-106)
== END 2024-05-18 16:30 | disposition home or self-care (01) | DRG 640 ==
LOC: EDBD 01:34 → ER 01:34 → TELE 14:39 → TELE-EAST 23:11
PROVIDERS: ADMIT Internal Medicine Pulmonary Disease; ATTEND Surgery
PROC: 5A1D70Z Performance of Urinary Filtration, Intermittent, Less than 6 Hours Per Day (ICD-10-PCS; principal; 2024-05-17)
DX: E87.70 Fluid overload, unspecified (principal); I50.23 Acute on chronic systolic (congestive) heart failure; J96.21 Acute and chronic respiratory failure with hypoxia; N18.6 End stage renal disease; I13.2 Hypertensive heart and chronic kidney disease with heart failure and with stage 5 chronic kidney disease, or end stage renal disease; E87.20 Acidosis, unspecified; D63.1 Anemia in chronic kidney disease; J44.9 Chronic obstructive pulmonary disease, unspecified; E87.5 Hyperkalemia; I25.10 Atherosclerotic heart disease of native coronary artery without angina pectoris; E78.5 Hyperlipidemia, unspecified; Z88.8 Allergy status to other drugs, medicaments and biological substances; Z79.899 Other long term (current) drug therapy; Z90.49 Acquired absence of other specified parts of digestive tract; Z88.6 Allergy status to analgesic agent; Z99.2 Dependence on renal dialysis; Z86.73 Personal history of transient ischemic attack (TIA), and cerebral infarction without residual deficits; Z83.3 Family history of diabetes mellitus; Z82.0 Family history of epilepsy and other diseases of the nervous system; Z82.49 Family history of ischemic heart disease and other diseases of the circulatory system
CPT/HCPCS: 36415; 71045; 72070; 80048; 80053; 82728; 82962; 83540; 83550; 83880; 84132; 84484; 85025; 85610; 85730; 87081; 87340; 90935; 93005; 94640; G0378; J1642; J1815; J7060

== ENCOUNTER 2024-11-09 06:09 | Inpatient (IN) | payer OTHER ==
[~2024-11-09] VITALS: Ht 157.5 cm; Wt 74.3 kg
[~2024-11-09 06:09] MED LIST changes: -BISO5TAB44 PO; -BUTA1CAP4 PO; -FOLI-119 PO; -MID10T PO
[2024-11-09 07:00] VITALS: PULSE 61; RESP 22; O2SAT 98
--- NOTE | 2024-11-09 07:03 | ECG ---
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
[2024-11-09 07:30] VITALS: PULSE 61; RESP 20; O2SAT 99
--- NOTE | 2024-11-09 07:35 | ED.PDOC ---
SOB-HPI HPI Comments 79 y/o F brought in by ambulance with PMHX of CHF, COPD, CKD, and HTN presents to the ED for CC of shortness of breath. Per EMS, patient woke up this morning to use the restroom when she removed her nasal canula; patient placed a pulse ox to monitor O2 and was stating in the 50's when she began to feel weak and short of breath. Per EMS, upon arrival to scene patient was stating at 55% on room air. Patient was placed on a high flow oxygen mask in route to the ED; patient stating and maintained at 97%. Patient currently complains of shortness of breath, weakness, and lightheadedness with prolonged symptoms of dark colored stools. Patient relays, that she is currently receiving dialysis and has been unable to receive treatment due to symptoms. Patient denies social history. Patient denies chest pain, nasal congestion, fever, sore throat, or numbness. No other symptoms or modifying factors at this time. 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 Family History Family History: No family hx of DM, No family hx of Heart elaina, No family hx of HTN, No family hx of Lung elaina Social History Smoker: Non-Smoker Alcohol: Denies ETOH Use Drugs: Denies Drug Use Lives In: Home Constitutional: reports: weakness; denies: chills, diaphoresis, fatigue, fever, malaise, sweats, others EENTM: denies: blurred vision, double vision, ear bleeding, ear discharge, ear drainage, ear pain, ear ringing, eye pain, eye redness, hearing loss, mouth pain, mouth swelling, nasal discharge, nose bleeding, nose congestion, nose pain, photophobia, tearing, throat pain, throat swelling, voice changes, others Respiratory: reports: shortness of breath, SOB with excertion; denies: cough, hemoptysis, orthopnea, SOB at rest, stridor, wheezing, others Cardiovascular: denies: chest pain, dizzy spells, diaphoresis, Dyspnea on exertion, edema, irregular heart beat, left arm pain, lightheadedness, palpitations, PND, syncope, others Gastrointestinal: denies: abdomen distended, abdominal pain, blood streaked bowels, constipated, diarrhea, dysphagia, difficulty swallowing, hematemesis, melena, nausea, poor appetite, poor fluid intake, rectal bleeding, rectal pain, vomiting, others Genitourinary: denies: abnormal vagina bleeding, burning, dyspareunia, dysuria, flank pain, frequency, hematuria, incontinence, pain, , vagina disch arge, urgency, others Neurological: denies: dizziness, fainting, headache, left sided numbness, left sided weakness, numbness, paresthesia, pre-existing deficit, right sided numbness, right sided weakness, seizure, speech problems, tingling, tremors, weakness, others Musculoskeletal: denies: back pain, gout, joint pain, joint swelling, muscle pain, muscle stiffness, neck pain, others Integumetry: denies: bruises, change in color, change in hair/nails, dryness, laceration, lesions, lumps, rash, wounds, others Allergic/Immunocompromised: denies: Difficulty Healing, Frequent Infections, Hives, Itching, others Hematologic/Lymphatic: denies: anemia, blood clots, easy bleeding, easy bruising, swollen glands, others Endocrine: denies: excessive hunger, excessive sweating, excessive thirst, excessive urination, flushing, intolerance to cold, intolerance to heat, unexplained weight gain, unexplained weight loss, others Psychiatric: denies: anxiety, bipolar disorder, depression, hopeless, panic disorder, schizophrenia, sleepless, suicidal, others All Other Systems: Reviewed and Negative Physical Exam General Appearance: Moderate Distress HEENT: Normal ENT Inspection, Pharynx Normal, TMs Normal Neck: Full Range of Motion, Non-Tender, Normal, Normal Inspection Respiratory: Respiratory Distress, Other (Coarse breath sounds) Cardiovascular: No Edema, No JVD, No Murmur, No Gallop, Normal Peripheral Pulses, Regular Rate/Rhythm Breast Exam: Deferred Gastrointestinal: No Organomegaly, Non Tender, No Pulsatile Mass, Normal Bowel Sounds, Soft Genitalia: Deferred Pelvic: Deferred Rectal: Deferred Extremities: No calf tenderness, Normal capillary refill, Normal inspection, Normal range of motion, Non-tender, No pedal edema Musculoskeletal : Apperance: Normal Neurologic: Alert, truck 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 Was a procedure done?: No Differential Dx Differential Diagnosis: Anxiety, Asthma, Bronchitis, CHF, COPD, Respiratory Distress, Sinusitis, Pharyngitis, URI X-Ray, Labs, Meds, VS Vital Signs Date Time Temp Pulse Resp B/P (MAP) Pulse Ox O2 Delivery O2 Flow Rate FiO2 11/09/24 07:00 61 22 98 Nasal Cannula* 6 44 11/09/24 07:00 97.4 63 22 106/28 (54) 97.4 11/09/24 06:29 18 100 Simple Mask* 10 99 11/09/24 06:24 97.4 67 18 126/75 (92) 100 11/09/24 06:12 62 Lab Test 11/09/24 08:00 Range/Units White Blood Count 6.7 4.4-10.8 10^3/uL Red Blood Count 2.86 L 4.0-5.20 10^6/uL Hemoglobin 8.7 L 12.2-16.2 g/dL Hematocrit 26.3 L 36.0-46.0 % Mean Corpuscular Volume 92.0 80.0-100.0 fL Mean Corpuscular Hemoglobin 30.5 28.0-32.0 pg Mean Corpuscular Hemoglobin Concent 33.2 32.0-36.0 g/dL Red Cell Distribution Width 15.4 H 11.8-14.3 % Platelet Count 212 140-450 10^3/uL Mean Platelet Volume 7.4 6.9-10.8 fL Neutrophils (%) (Auto) 73.2 37.0-80.0 % Lymphocytes (%) (Auto) 15.5 10.0-50.0 % Monocytes (%) (Auto) 8.7 0.0-12.0 % Eosinophils (%) (Auto) 1.8 0.0-7.0 % Basophils (%) (Auto) 0.8 0.0-2.0 % Neutrophils # (Auto) 4.9 1.6-8.6 10 ^3/uL Lymphocytes # (Auto) 1.0 0.4-5.4 10 ^3/uL Monocytes # (Auto) 0.6 0-1.3 10 ^3/uL Eosinophils # (Auto) 0.1 0-0.8 10 ^3/uL Basophils # (Auto) 0.1 0-0.2 10 ^3/uL Nucleated Red Blood Cells 0.0 % Sodium Level 137 136-145 mmol/L Potassium Level 6.3 *H 3.5-5.1 mmol/L Chloride Level 97 L 98-107 mmol/L Carbon Dioxide Level 29 20-31 mmol/L Anion Gap 11 5-15 Blood Urea Nitrogen Pending Creatinine Pending Glomerular Filtration Rate Calc Pending BUN/Creatinine Ratio Pending Serum Glucose Pending Calcium Level 8.8 8.7-10.4 mg/dL Troponin I High Sensitivity Pending B-Type Natriuretic Peptide Pending [place] [id number] Ph: [phone] DIAGNOSTIC IMAGING Diagnostic Imaging Report : [id number] Signed PATIENT: HOMAR CASANOVA ACCT: [id number] UNIT: [id number] : 1945 LOC: ER ROOM / BED: / AGE / SEX: 79 / F ADM STATUS: REG ER SERVICE 0659 ORDERING PHYSICIAN: RO FLYNN MD PROCEDURE(s): CXRP - CHEST PORTABLE REASON: sob ORDER NUMBER(s): [id number], ACCESSION NUMBER(s): [id number] CHEST RADIOGRAPH Indication: sob Technique: Single frontal view of the chest was obtained Comparison: XY CHEST PORTABLE on DOS: 05/17/24, CHEST PORTABLE on DOS: 06/09/20, CHEST PORTABLE on DOS: 06/08/20, CHEST XRAY 1 VIEW on DOS: 07/29/19 FINDINGS: Lines and Tubes: Left pacemker. Lungs: No focal consolidation. Pleura: No effusion. No pneumothorax. Cardiomediastinal contours: Cardiomegaly Bones: No acute osseous abnormality. IMPRESSION: Cardiomegaly with mild chf. ATED BY: LUBNA FLORES MD DICTATED DATE/TIME: 11/09/24808 SIGNED BY: LUBNA FLORES MD SIGNED DATE/TIME: 11/09/24808 CC: Patient alert. Complaining of shortness a breath. She is normally on oxygen. Had to increase her oxygen content. Possible COPD. She did not get her dialysis yesterday. EKG reviewed does not show any acute changes. Nephrology consultation. Reviewed her previous visit. Explained to the patient. Continue cardiac monitoring. [facility] approved inpatient admission [id number]. Time of 1ST Reevaluation: 07:15 Reevaluation 1ST: Unchanged Patient Education/Counseling: Diagnosis, Treatment Family Education/Counseling: No Family Present Departure 1 Departure Time of Disposition: 08:06 Impression: Primary Impression: Congestive heart failure Qualified Codes: I50.43 - Acute on chronic combined systolic (congestive) and diastolic (congestive) heart failure Additional Impression: End stage renal disease on dialysis Disposition: ADMITTED INPATIENT Admit to: Med Surg Condition: Guarded Critical Care Note Critical Care Time?: Yes (90 min-critical care time only) Stability Stability form required: No Heart Score Heart Score: Heart Score Response (Comments) Value History Slightly Suspicious 0 EKG Normal 0 Age >65 2 Risk Factors >3 or Hx ASHD 2 Troponin Normal limit 0 Total 4 I personally scribed for RO FLYNN MD ([email or web address]) on 11/09/24 at 07:35. Electronically submitted by Brittaney Oconnor ([email or web address]). I personally scribed for RO FLYNN MD ([email or web address]) on 11/09/24 at 08:24. Electronically submitted by Brittaney Oconnor ([email or web address]). RO FLYNN MD Nov 09, 2024 07:35
--- NOTE | 2024-11-09 08:12 | DVH ---
CHEST RADIOGRAPH Indication: sob Technique: Single frontal view of the chest was obtained Comparison: XY CHEST PORTABLE on DOS: 05/17/24, CHEST PORTABLE on DOS: 06/09/20, CHEST PORTABLE on DOS: 06/08/20, CHEST XRAY 1 VIEW on DOS: 07/29/19 FINDINGS: Lines and Tubes: Left pacemker. Lungs: No focal consolidation. Pleura: No effusion. No pneumothorax. Cardiomediastinal contours: Cardiomegaly Bones: No acute osseous abnormality. IMPRESSION: Cardiomegaly with mild chf.
[2024-11-09 08:22] LABS: Basophils # (auto) 0.1 10 ^3/uL (0-0.2); Basophils % (auto) 0.8 % (0.0-2.0); Eosinophils # (auto) 0.1 10 ^3/uL (0-0.8); Eosinophils % (auto) 1.8 % (0.0-7.0); Hematocrit 26.3 % (36.0-46.0); Hemoglobin 8.7 g/dL (12.2-16.2); Lymphocytes % (auto) 15.5 % (10.0-50.0); Mean Corpuscular Hemoglobin 30.5 pg (28.0-32.0); Mean Corpuscular Hgb Conc. 33.2 g/dL (32.0-36.0); Monocytes # (auto) 0.6 10 ^3/uL (0-1.3); Monocytes % (auto) 8.7 % (0.0-12.0); Neutrophils # (auto) 4.9 10 ^3/uL (1.6-8.6); Neutrophils % (auto) 73.2 % (37.0-80.0); Platelet Count (auto) 212 10^3/uL (140-450); Red Blood Cells 2.86 10^6/uL (4.0-5.20); Red Cell Distribution Width 15.4 % (11.8-14.3); White Blood Cell 6.7 10^3/uL (4.4-10.8)
[2024-11-09 08:39] LABS: Sodium 137 mmol/L (136-145)
[2024-11-09 08:40] LABS: Anion Gap 11 (5-15); Calcium 8.8 mg/dL (8.7-10.4); Carbon Dioxide 29 mmol/L (20-31)
[2024-11-09 08:41] LABS: Chloride 97 mmol/L (98-107)
[2024-11-09 08:44] LABS: Potassium 6.3 mmol/L (3.5-5.1)
[2024-11-09 08:45] LABS: BUN/Creatinine Ratio 8.7 (10.0-20.0); Glucose 77 mg/dL (74-106)
[2024-11-09 08:54] LABS: Blood Urea Nitrogen 85 mg/dL (9-23)
[2024-11-09] MEDS: InsuLIN REG 1unit/0.01ml Soln (100units/ml) IV ONE (09:15)
[2024-11-09] MEDS: SODIUM ZIRCONIUM CYCL 10 GM PAK PO ONE (09:15)
[2024-11-09] MEDS: SODIUM BICARB 8.4% 50Meq/50ml SYR INJ IV ONE (09:15)
[2024-11-09] MEDS: CALCIUM GLUC 1,000mg/50ml-NS 50 ML IV ONE (09:15)
[2024-11-09] MEDS: FUROSEMIDE 20 MG/2 ML VIAL IV ONE (09:15)
[2024-11-09] MEDS: DEXTROSE (50%) 50ML SYRG IV ONE (09:15)
[2024-11-09] MEDS: ALBUTEROL SULF 2.5 MG/0.5ML(0.5%) NEB SOLN NEB ONE (09:32)
[2024-11-09] MEDS: SODIUM CHL 0.9% 1000 ML BAG XX ONE (10:15)
[2024-11-09] MEDS: MIDODRINE HCL 10 MG TAB PO ONE (11:45)
--- NOTE | 2024-11-09 14:24 | DVHHP2 ---
History of Present Illness Reason for Visit: Shortness of breath History of Present Illness Francie Go is a 79-year-old female with past medical history of hypertension, hyperlipidemia, COPD, CHF, end-stage renal disease on HD (M/W/F), TIA, CVA x2 with no deficits, cholecystectomy, tonsillectomy, and right shoulder fracture 1 year ago who presents to the ED with shortness of breath, weakness, and lightheadedness x1 day. Patient reports that she was walking to the bathroom without her oxygen and felt short of breath. Patient reports that she is on home oxygen 3 L nasal cannula continuously. Patient also reports that she has been having dark stool for the last 2 days. Patient denies any chest pain, fever, chills, recent injury or trauma, recent illnesses, shortness of breath, back pain, abdominal pain, nausea, and vomiting. Upon examination hemodialysis nurse at bedside and pulled 2.1 L. patient reports that she uses a front wheel walker with ambulation. Cardiovascular: CHF, HTN, hyperipidemia Pulmonary: COPD BAG LINER: Other (TIA and CVA with no deficits) Renal/: Chronic renal failure Past Surgical History: Cholecystectomy, Tonsillectomy Family History: None Smoke: No ALCOHOL: none Drugs: None Lives: with Family Domestic Violence: Neg Review of Systems Constitutional: Yes: Weakness, Other (Lightheadedness); No: Fever, Chills, Sweats, Malaise Eyes: No: Pain, Vision change, Conjunctivae inflammation, Eyelid inflammation, Other, Redness ENT: No: Ear pain, Ear discharge, Nose pain, Nose discharge, Nose congestion, Mouth pain, Mouth swelling, Throat pain, Throat swelling, Other Respiratory: Shortness of breath; No: Cough, Dry, SOB with excertion, Wheezing, Hemoptysis, Pleuritic Pain, Sputum, Wheezing, Other Cardiovascular: No: Chest Pain, Palpitations, Orthopnea, Paroxysmal Noc. Dyspnea, Edema, Lt Headedness, Other Gastrointestinal: Melena; No: Nausea, Vomiting, Abdominal Pain, Diarrhea, Constipation, Hematochezia, Other Genitourinary: No Dysuria, No Frequency, No Incontinence, No Hematuria, No Retention, No Other Musculoskeletal: No: other, neck pain, shoulder pain, arm pain, back pain, hand pain, leg pain, foot pain Skin: No: Rash, Lesions, Jaundice, Bruising, Other Neurological: No: Weakness, Numbness, Incoordination, Change in speech, Confusion, Seizures, Other Allergies: Coded Allergies: Acetaminophen (Verified Allergy, Unknown, 05/17/18) Hydrocodone (Verified Allergy, Unknown, 05/17/18) NSAIDs (Verified Allergy, Unknown, 12/29/17) Exam Vital Signs Vital Signs Date Time Temp Pulse Resp B/P (MAP) Pulse Ox O2 Delivery O2 Flow Rate FiO2 11/09/24 13:03 69 11/09/24 12:00 16 102/38 (59) 100 11/09/24 09:35 Nasal Cannula* 4 36 11/09/24 07:30 97.3 97.3 General Appearance: Alert, Oriented X3, Cooperative, No acute distress HEENT: Atraumatic, PERRLA, EOMI, Mucous membr. moist/pink Respiratory: Normal air movement Cardiovascular: Normal S1, Normal S2, No murmurs Abdominal: Normal bowel sounds, Soft, No tenderness, No hepatospenomegaly, No masses Extremities: No clubbing, No cyanosis, No edema, Normal pulses, No tenderness/swelling Skin: No significant lesion Neuro: Normal speech, Strength at 5/5 X4 ext, Normal tone, Sensation intact Psych/Mental Status: Mental status NL, Mood NL Labs/Xrays Labs Test 11/09/24 11:12 11/09/24 09:59 11/09/24 08:00 Range/Units POC Glucose 76 70-106 mg/dl White Blood Count 6.7 4.4-10.8 10^3/uL Red Blood Count 2.86 L 4.0-5.20 10^6/uL Hemoglobin 8.7 L 12.2-16.2 g/dL Hematocrit 26.3 L 36.0-46.0 % Mean Corpuscular Volume 92.0 80.0-100.0 fL Mean Corpuscular Hemoglobin 30.5 28.0-32.0 pg Mean Corpuscular Hemoglobin Concent 33.2 32.0-36.0 g/dL Red Cell Distribution Width 15.4 H 11.8-14.3 % Platelet Count 212 140-450 10^3/uL Mean Platelet Volume 7.4 6.9-10.8 fL Neutrophils (%) (Auto) 73.2 37.0-80.0 % Lymphocytes (%) (Auto) 15.5 10.0-50.0 % Monocytes (%) (Auto) 8.7 0.0-12.0 % Eosinophils (%) (Auto) 1.8 0.0-7.0 % Basophils (%) (Auto) 0.8 0.0-2.0 % Neutrophils # (Auto) 4.9 1.6-8.6 10 ^3/uL Lymphocytes # (Auto) 1.0 0.4-5.4 10 ^3/uL Monocytes # (Auto) 0.6 0-1.3 10 ^3/uL Eosinophils # (Auto) 0.1 0-0.8 10 ^3/uL Basophils # (Auto) 0.1 0-0.2 10 ^3/uL Nucleated Red Blood Cells 0.0 % Sodium Level 137 136-145 mmol/L Potassium Level 6.3 *H 3.5-5.1 mmol/L Chloride Level 97 L 98-107 mmol/L Carbon Dioxide Level 29 20-31 mmol/L Anion Gap 11 5-15 Blood Urea Nitrogen 85 *H 9-23 mg/dL Creatinine 9.81 H 0.550-1.02 mg/dL Glomerular Filtration Rate Calc 4 >90 mL/min BUN/Creatinine Ratio 8.7 L 10.0-20.0 Serum Glucose 77 74-106 mg/dL Calcium Level 8.8 8.7-10.4 mg/dL Troponin I High Sensitivity 23 </=34 ng/L B-Type Natriuretic Peptide 1847.07 0-100 pg/mL CHEST RADIOGRAPH Indication: sob Technique: Single frontal view of the chest was obtained Comparison: XY CHEST PORTABLE on DOS: 05/17/24, CHEST PORTABLE on DOS: 06/09/20, C HEST PORTABLE on DOS: 06/08/20, CHEST XRAY 1 VIEW on DOS: 07/29/19 FINDINGS: Lines and Tubes: Left pacemker. Lungs: No focal consolidation. Pleura: No effusion. No pneumothorax. Cardiomediastinal contours: Cardiomegaly Bones: No acute osseous abnormality. IMPRESSION: Cardiomegaly with mild chf. Assessment/Plan Assessment/Plan Assessment/Plan: Acute on chronic CHF exacerbation Anemia rule out GI bleed MIRANDA on a ESRD on (M/W/F) Labs Epoetin given in ED Midodrine given ED NS 2 L given in ED heparin ordered in ED Lokelma ordered Calcium glucose ordered in ED Lasix Sodium bicarb Respiratory treatments Dextrose Insulin Hepatitis panel UA Troponin negative EKG BNP Lasix School occult Protonix A.m. labs Strict I&Os GI consult Chronic hypertension Continue home medications Chronic hyperlipidemia Continue home medications Chronic COPD P.r.n. respiratory treatments History of TIA History of CVA with no deficits Monitor FEN/PPX diet hl DVT prophylaxis not indicated patient ambulating, patient bleeding PUD prophylaxis Protonix [place] [facility] [place] of care with patient and nurse Home medications reconciled Plan discussed with: Patient Date of Service: Nov 09, 2024 Billing Provider: MISSY BOOTH Common Visit Codes: [id number] INP/OBS CARE (HIGH) MISSY BOOTH Nov 09, 2024 14:24
[2024-11-09] MEDS ORDERED: ONDANSETRON HCL 4 MG/2 ML VIAL IV PRN (14:30)
[2024-11-09] MEDS ORDERED: ALBUTEROL SULF 2.5 MG/0.5ML(0.5%) NEB SOLN NEB PRN (16:15)
[2024-11-09] MEDS ORDERED: IPRATROPIUM BROM 0.5 MG/2.5ML INH SOL NEB PRN (16:15)
[2024-11-09 16:30] VITALS: BP 102/25; PULSE 63; RESP 18; O2SAT 98
[2024-11-09] MEDS ORDERED: SEVELAMER 800 MG TAB PO SCH (18:00)
[2024-11-09] MEDS: CALCIUM ACETATE 667 MG CAP PO SCH (18:11)
[2024-11-09] MEDS: FUROSEMIDE 40 MG/4 ML VIAL IV SCH (18:15)
[2024-11-09] MEDS: ALBUTEROL SULF 2.5 MG/0.5ML(0.5%) NEB SOLN NEB SCH (18:36)
[2024-11-09] MEDS: IPRATROPIUM BROM 0.5 MG/2.5ML INH SOL NEB SCH (18:36)
[2024-11-09 18:37] VITALS: PULSE 63; RESP 18; O2SAT 100
[2024-11-09 18:43] VITALS: PULSE 65; RESP 18; O2SAT 99
--- NOTE | 2024-11-09 20:02 | DVHINCON2 ---
DATE OF CONSULTATION: 11/09/2024 CONSULTING PHYSICIAN: Dr. Centeno. REASON FOR CONSULTATION: Management of dialysis. HISTORY OF PRESENT ILLNESS: The patient is a 79-year-old lady who is one of our chronic dialysis patients who missed her dialysis treatment yesterday because she was not feeling well. Apparently, this morning, came to the Emergency Room, was found to have hyperkalemia. She also was found to have fluid overload, hypoxemic, congestive heart failure. At the same time, she was hypotensive, initially being consulted to handle her dialysis treatment. The patient denies any symptoms or complaints. Denies particularly chest pain. She states that for a few days she has been having dark color stools, but denies any fever. PAST MEDICAL HISTORY: Significant for hypertension, COPD, congestive heart failure and end-stage renal disease. She has a history of previous stroke, vascular access problems, hyperlipidemia, and anemia of renal disease. SOCIAL HISTORY: She denies smoking cigarettes and drinking alcohol. FAMILY HISTORY: Negative for chronic conditions. MEDICATIONS: In the hospital, she has received midodrine, sodium chloride, calcium gluconate, furosemide, bicarbonate, albuterol. PHYSICAL EXAMINATION: VITAL SIGNS: Blood pressure is 102/25, heart rate 63, respirations 18, temperature 98. GENERAL: The patient is an elderly female who appears to be chronically ill, in no acute distress, alert and oriented x2. HEENT: Unremarkable, no jugular venous distention, palpable thyroid, or lymphadenopathy. Oral mucosa is pale and dry. LUNGS: Show diminished entry at the bases. A few crackles, no wheezing or rhonchi. CARDIOVASCULAR: Shows regular rate, 1/6 systolic murmur. ABDOMEN: Soft, mildly distended. Bowel sounds are normal in intensity and frequency. EXTREMITIES: Show no clubbing, cyanosis. There is trace edema in the ankles. LABORATORY DATA: Hemoglobin is 8.7, white blood cell count 6.7, sodium 137, potassium 6.3, bicarbonate 29, BUN 85, creatinine 9. ASSESSMENT: * End-stage renal disease. * Anemia of renal disease. * Hyperkalemia. * Mild congestive heart failure. * History of hypertension, but the patient is currently hypotensive. PLAN: The patient was treated medically for the hyperkalemia. We arranged for urgent dialysis. She is finishing her treatment at this point. She is tolerating removal of 3 liters of fluid. She received midodrine and albumin during dialysis. We should check for gastrointestinal bleeding. Avoid the use of blood thinners. Get blood cultures and also give empiric intravenous antibiotics. I will follow her during the hospitalization. Next dialysis will be in 48 hours. Thank you for the consultation. MD TAWNYA Simon/CLARIBEL TID: [id number] RECEIPT: [id number]
[2024-11-09] MEDS: ATORVASTATIN 20 MG TAB PO SCH (22:02)
[2024-11-09] MEDS: PANTOPRAZOLE 40 MG/10 ML VIAL INJ IV SCH (22:03)
[2024-11-09] MEDS: EPOETIN ALFA-EPBX 10,000 UNIT/1ML VIAL SC ONE (22:04)
--- NOTE | 2024-11-09 22:13 | DVHINCON2 ---
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 Patient reports that she was walking to the bathroom without her oxygen and felt short of breath. Patient reports that she is on home oxygen 3 L nasal cannula continuously. Patient also reports that she has been having dark stool for the last 2 days. Patient denies any chest pain, fever, chills, recent injury or trauma, recent illnesses, shortness of breath, back pain, abdominal pain, nausea, and vomiting. Upon examination hemodialysis nurse at bedside and pulled 2.1 L. patient reports that she uses a front wheel walker with ambulation. 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: Other (TIA and CVA with no deficits) Renal/: Chronic renal failure Past Surgical History Past Surgical History: Cholecystectomy, Tonsillectomy Family History: Arthritis MOTHER Diabetes mellitus FH: CHF (congestive heart failure) FATHER FH: epilepsy GRANDMOTHER FH: heart attack BORTHER SISTER FH: heart disease FH: lung disease Hypertension Allergies: Coded Allergies: Acetaminophen (Verified Allergy, Unknown, 05/17/18) Hydrocodone (Verified Allergy, Unknown, 05/17/18) NSAIDs (Verified Allergy, Unknown, 12/29/17) Home Meds Reported Medications Sevelamer Carbonate (Renvela) 800 Mg Tab, 2 TAB PO TID 05/18/24 Midodrine Hcl (Midodrine Hcl) 5 Mg Tab, 1 TAB PO BID PRN for DIZZINESS 05/18/24 Calcium Acetate (PHOSLO CAPSULE) 667 Mg Cp, 4 CAP PO TID, #180 CAP 5 Refills 01/01/18 B Complex W/ C (B COMPLEX/VITAMIN C) Vit C Cap, 1 C PO DAILY, CAP 12/30/17 Amiodarone Hcl (Amiodarone Hcl) 200 Mg Tab, 200 MG PO DAILY for 30 Days 12/30/17 Atorvastatin Calcium (Lipitor) 20 Mg Tab, 1 TAB PO HS, #90 TAB 1 Refill 12/30/17 Current Medications Current Medications Medications (Trade) Dose Ordered Sig/Elias Route PRN Reason Start Time Stop Time Status Last Admin Furosemide (Lasix Injection) 40 mg BIDD IV 11/09/24 18:00 11/09/24 18:15 Ondansetron HCl (Zofran) 4 mg Q4HP PRN IV NAUSEA / VOMITING 11/09/24 14:30 Albuterol (Ventolin Medneb) 2.5 mg Q6HWA NEB 11/09/24 18:00 11/09/24 18:36 Albuterol (Ventolin Medneb) 2.5 mg Q2HPRN PRN NEB SHORTNESS OF BREATH 11/09/24 16:15 Ipratropium [place] (Atrovent Medneb) 0.5 mg Q6HWA NEB 11/09/24 18:00 11/09/24 18:36 Ipratropium [place] (Atrovent Medneb) 0.5 mg Q2HPRN PRN NEB SHORTNESS OF BREATH 11/09/24 16:15 Pantoprazole Sodium (Protonix) 40 mg BID IV 11/09/24 22:00 11/09/24 22:03 Amiodarone HCl (Cordarone Tablet) 200 mg DAILY PO 11/10/24 10:00 Atorvastatin Calcium (Lipitor) 20 mg HS PO 11/09/24 22:00 11/09/24 22:02 Calcium Acetate (Phoslo Capsule) 667 mg TIDWM PO 11/09/24 18:00 11/09/24 18:11 Patient Own Medication 1 c DAILY PO 11/10/24 10:00 Sevelamer HCl (Renagel) 1,600 mg TIDWM PO 11/09/24 18:00 Hold Vital Signs Vital Signs Date Time Temp Pulse Resp B/P (MAP) Pulse Ox O2 Delivery O2 Flow Rate FiO2 11/09/24 20:00 68 11/09/24 20:00 15 109/19 (49) 100 11/09/24 19:30 Nasal Cannula* 3 32 11/09/24 07:30 97.3 97.3 Physical Exam GENERAL: The patient is an elderly female who appears to be chronically ill, in no acute distress, alert and oriented x2. HEENT: Unremarkable, no jugular venous distention, palpable thyroid, or lymphadenopathy. Oral mucosa is pale and dry. LUNGS: Show diminished entry at the bases. A few crackles, no wheezing or rhonchi. CARDIOVASCULAR: Shows regular rate, 1/6 systolic murmur. ABDOMEN: Soft, mildly distended. Bowel sounds are normal in intensity and frequency. EXTREMITIES: Show no clubbing, cyanosis. There is trace edema in the ankles. Labs/Diagnostic Data Labs Test 11/09/24 13:08 11/09/24 11:12 11/09/24 09:59 11/09/24 08:00 Range/Units Potassium Level 3.5 # 3.5-5.1 mmol/L POC Glucose 76 70-106 mg/dl White Blood Count 6.7 4.4-10.8 10^3/uL Red Blood Count 2.86 L 4.0-5.20 10^6/uL Hemoglobin 8.7 L 12.2-16.2 g/dL Hematocrit 26.3 L 36.0-46.0 % Mean Corpuscular Volume 92.0 80.0-100.0 fL Mean Corpuscular Hemoglobin 30.5 28.0-32.0 pg Mean Corpuscular Hemoglobin Concent 33.2 32.0-36.0 g/dL Red Cell Distribution Width 15.4 H 11.8-14.3 % Platelet Count 212 140-450 10^3/uL Mean Platelet Volume 7.4 6.9-10.8 fL Neutrophils (%) (Auto) 73.2 37.0-80.0 % Lymphocytes (%) (Auto) 15.5 10.0-50.0 % Monocytes (%) (Auto) 8.7 0.0-12.0 % Eosinophils (%) (Auto) 1.8 0.0-7.0 % Basophils (%) (Auto) 0.8 0.0-2.0 % Neutrophils # (Auto) 4.9 1.6-8.6 10 ^3/uL Lymphocytes # (Auto) 1.0 0.4-5.4 10 ^3/uL Monocytes # (Auto) 0.6 0-1.3 10 ^3/uL Eosinophils # (Auto) 0.1 0-0.8 10 ^3/uL Basophils # (Auto) 0.1 0-0.2 10 ^3/uL Nucleated Red Blood Cells 0.0 % Sodium Level 137 136-145 mmol/L Chloride Level 97 L 98-107 mmol/L Carbon Dioxide Level 29 20-31 mmol/L Anion Gap 11 5-15 Blood Urea Nitrogen 85 *H 9-23 mg/dL Creatinine 9.81 H 0.550-1.02 mg/dL Glomerular Filtration Rate Calc 4 >90 mL/min BUN/Creatinine Ratio 8.7 L 10.0-20.0 Serum Glucose 77 74-106 mg/dL Calcium Level 8.8 8.7-10.4 mg/dL Troponin I High Sensitivity 23 </=34 ng/L B-Type Natriuretic Peptide 1847.07 0-100 pg/mL Problems(with codes): (1) Anemia (2) Melena (3) End stage renal disease on dialysis (4) Congestive heart failure (5) Generalized weakness (6) Acute exacerbation of congestive heart failure (7) Cardiomegaly Plan/Recommendation Plan Continue dialysis as per schedule Protonix 40 mg IV q.12 hours Discontinue aspirin NSAIDs Possible endoscopy on 11/10/2024 if her laboratory tests improve and her potassium normalizes Patient had previous outpatient colonoscopy about five years ago which she reports as negative Plan discussed with: Patient, Other (Dr Browne) HAYLEE TRAN MD Nov 09, 2024 22:13
[2024-11-09 23:21] VITALS: PULSE 18
[2024-11-10] VITALS (18 sets, daily range): BP systolic 102–141; BP diastolic 38–59; PULSE 60–69; RESP 10–19; TEMP 97.5–98.3; O2SAT 96–100
[2024-11-10 07:20] LABS: Basophils # (auto) 0.1 10 ^3/uL (0-0.2); Basophils % (auto) 0.9 % (0.0-2.0); Eosinophils # (auto) 0.1 10 ^3/uL (0-0.8); Eosinophils % (auto) 1.8 % (0.0-7.0); Hematocrit 27.8 % (36.0-46.0); Hemoglobin 9.1 g/dL (12.2-16.2); Lymphocytes # (auto) 1.1 10 ^3/uL (0.4-5.4); Lymphocytes % (auto) 14.3 % (10.0-50.0); Mean Corpuscular Hemoglobin 31.3 pg (28.0-32.0); Mean Corpuscular Hgb Conc. 32.9 g/dL (32.0-36.0); Mean Corpuscular Volume 95.2 fL (80.0-100.0); Monocytes # (auto) 0.8 10 ^3/uL (0-1.3); Monocytes % (auto) 10.3 % (0.0-12.0); Neutrophils # (auto) 5.5 10 ^3/uL (1.6-8.6); Neutrophils % (auto) 72.7 % (37.0-80.0); Nucleated Red Blood Cells % 0.2 %; Platelet Count (auto) 241 10^3/uL (140-450); Red Blood Cells 2.92 10^6/uL (4.0-5.20); Red Cell Distribution Width 15.4 % (11.8-14.3); White Blood Cell 7.6 10^3/uL (4.4-10.8)
[2024-11-10 07:32] LABS: Alkaline Phosphatase 104 U/L (46-116); Anion Gap 12 (5-15); Aspartate Aminotransferase 21 U/L (13-40); BUN/Creatinine Ratio 6.4 (10.0-20.0); Bilirubin, Total 0.8 mg/dL (0.2-1.0); Calcium 9.3 mg/dL (8.7-10.4); Potassium 4.6 mmol/L (3.5-5.1); Sodium 139 mmol/L (136-145)
[2024-11-10 07:44] LABS: Alanine Aminotransferase < 9 U/L (7-40); Blood Urea Nitrogen 40 mg/dL (9-23); Carbon Dioxide 31 mmol/L (20-31); Chloride 96 mmol/L (98-107); Glucose 69 mg/dL (74-106); Total Protein 8.2 g/dL (5.7-8.2)
[2024-11-10] MEDS: AMIODARONE HCL 200 MG TAB PO SCH (08:43)
[2024-11-10] MEDS ORDERED: SODIUM CHLORIDE LOCK 10 ML ONE (09:34)
[2024-11-10] MEDS: [UNRECOGNIZED DRUG - OTHER] PO SCH (10:00)
[2024-11-10] MEDS: B COMPLEX PO SCH (10:00)
--- NOTE | 2024-11-10 10:51 | DVHPN2 ---
Progress Note Date Seen: Nov 10, 2024 Medical Necessity Reason Pt with a Central, PICC or Fol: No Subjective Patient reports: No new complaints Review of Systems: HEENT:Normal, CVS:Normal, RESPIRATORY:Normal, GI:Normal, :Normal, MSK:Normal, NEURO:Normal Objective vital signs Vital Sign Date Time Temp Pulse Resp B/P (MAP) Pulse Ox O2 Delivery O2 Flow Rate FiO2 11/10/24 08:49 97.8 60 16 118/40 (66) 98 97.8 11/10/24 07:09 Nasal Cannula 3.0 11/10/24 07:09 32 medications Current Medications Medications Dose Ordered Sig/Elias Route Start Time Stop Time Status Last Admin Dose Admin Ondansetron HCl 4 mg Q4HP PRN IV 11/09/24 14:30 Albuterol 2.5 mg Q6HWA NEB 11/09/24 18:00 11/10/24 07:09 2.5 MG Albuterol 2.5 mg Q2HPRN PRN NEB 11/09/24 16:15 Ipratropium [place] 0.5 mg Q6HWA NEB 11/09/24 18:00 11/10/24 07:09 0.5 MG Ipratropium [place] 0.5 mg Q2HPRN PRN NEB 11/09/24 16:15 Pantoprazole Sodium 40 mg BID IV 11/09/24 22:00 11/10/24 08:43 40 MG Amiodarone HCl 200 mg DAILY PO 11/10/24 10:00 11/10/24 08:43 200 MG Atorvastatin Calcium 20 mg HS PO 11/09/24 22:00 11/09/24 22:02 20 MG Calcium Acetate 667 mg TIDWM PO 11/09/24 18:00 11/09/24 18:11 667 MG Patient Own Medication 1 c DAILY PO 11/10/24 10:00 Sevelamer HCl 1,600 mg TIDWM PO 11/09/24 18:00 Hold Examination: GENERAL:Normal, HEENT:Normal, NECK:Normal, LUNGS:Normal, LUNGS:Abnormal (ON OXYGEN), CVS:Normal, ABDOMEN:Normal, MSK:Normal, SKIN:Normal, NEURO:Normal, :Normal laboratory and microbiology Laboratory Tests 11/10/24 05:33 Test 11/10/24 05:33 Range/Units Serum Glucose 69 L 74-106 mg/dL Problem List/Assessment/Plan Problem List/Assessment/Plan #1 acute resp failure: on oxygen #2 esrd: on dialysis #3 acute on chronic systolic heart failure: echo #4 copd #5 h/o cva #6 gi bleed: egd today #7 hyperkalemia: improved #8 anemia advance care planning- full code- time spent 21 mins Plan discussed with: Patient My Orders My Orders Orders - NALDO GONZALEZ MD Procedure Category Date Status Time Echo 2d Mode Cardiac US 11/10/24 Logged DOP 10:38 Basic Metabolic Panel LAB 11/11/24 Verified 06:00 Complete Blood Count LAB 11/11/24 Verified 06:00 Date of Service: Nov 10, 2024 Billing Provider: NALDO GONZALEZ MD Common Visit Codes: [id number] INP/OBS CARE(HIGH) Secondary Visit Codes: [id number] CARE PLAN 30 MINUTES NALDO GONZALEZ MD Nov 10, 2024 10:51
[2024-11-10 12:37] LABS: INR 1.07 (0.9-1.15); Partial Thromboplastin Time 29.9 SEC (24.5-34.5); Prothrombin Time 11.3 sec (9.3-11.8)
[2024-11-10] MEDS: LIDOCAINE VISCOUS 2% 15ML UD ONE (13:43)
[2024-11-10] MEDS: diphenhdrAMINE HCL 50 MG/1 ML VL ONE (13:45)
[2024-11-10] MEDS: fentaNYL CITRATE 100 MCG/2 ML VL ONE (13:45)
[2024-11-10] MEDS: MIDAZOLAM HCL 5 MG/ML-1ML VIAL ONE (13:45)
--- NOTE | 2024-11-10 14:16 | DVHOP2 ---
Operative Report DATE OF OPERATION: 11/10/24 PROCEDURE: Upper Endoscopy with biopsy PREOPERATIVE INDICATION: The patient is a 79 -year-old female undergoing endoscopy for melena and anemia POSTOPERATIVE DIAGNOSES: 1. 2 cm sliding-type hiatal hernia with slightly irregular squamocolumnar j unction and extension of columnar epithelium into the distal esophagus for 1-2 cm from which biopsies were obtained 2. Mild gastroduodenitis with multiple superficial erosions otherwise normal examination up to the 2nd and 3rd part of the duodenum with no fresh or old blood in the upper GI tract PROCEDURE PERFORMED BY: Haylee Costa GI NURSE: Gracia SCOPE: Olympus videoendoscope. ASA CLASS: 3. PREOPERATIVE MEDICATIONS: Versed 1 mg, Fentanyl 50 mcg, Benadryl 50 mg I administered moderate sedation throughout this _8_ minutes procedure. An independent trained observer pushed medications at my direction, and monitored the patient's level of consciousness and physiological status throughout. PROCEDURE IN DETAIL: After obtaining an informed consent, the patient was placed on left lateral decubitus position. The patient was then sedated with the above medications. A bite block was placed between her teeth. The endoscope was then passed through the oropharynx, into the esophagus, and through the stomach and pylorus up to the second and third part of the duodenum. The endoscope was then withdrawn. The 2nd and 3rd part of the duodenal was normal. Duodenal bulb and postbulbar area showed mild duodenitis with superficial erosions The pre-pyloric area antrum and body of the stomach showed mild gastritis with multiple tiny gastric erosions. On retroflexion and straight on view the fundus cardia and angularis were otherwise normal. Duodenal and gastric biopsies were obtained. The endoscope was then withdrawn into the distal esophagus where the patient had a 2 cm sliding-type hiatal hernia with slightly irregular squamocolumnar junction. There were short-segment extension of columnar epithelium into the distal esophagus for 1-2 cm from which biopsies were obtained. The remaining distal and proximal esophagus and oropharynx unremarkable. There was no fresh or old blood in the upper GI tract The patient tolerated the procedure well without difficulty. COMPLICATIONS : None SPECIMENS: Duodenal biopsies Gastric biopsies GE junction biopsies DISPOSITION: Transfer back to the floor Stable PLAN: 1. Await for biopsy result; avoid aspirin and NSAIDs 2. Protonix 40 mg p.o. q.a.m. 3. Carafate 1 g p.o. twice a day 4. Resume renal diet advance as tolerated 5. 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 Patient has had multiple colonoscopies in the past 2. Will place pt on Protonix 40 mg bid HAYLEE COSTA MD Nov 10, 2024 14:16
--- NOTE | 2024-11-10 15:47 | DVHPN2 ---
Progress Note - Dictate Date Seen: Nov 10, 2024 Medical Necessity Reason Pt with a Central, PICC or Fol: No Subjective Patient feels better vital signs Vital Sign Date Time Temp Pulse Resp B/P (MAP) Pulse Ox O2 Delivery O2 Flow Rate FiO2 11/10/24 15:11 97.7 61 14 133/59 (83) 100 97.7 11/10/24 14:29 Nasal Cannula 2.0 100 medications Current Medications Medications Dose Ordered Sig/Elias Route Start Time Stop Time Status Last Admin Dose Admin Ondansetron HCl 4 mg Q4HP PRN IV 11/09/24 14:30 Albuterol 2.5 mg Q6HWA NEB 11/09/24 18:00 11/10/24 12:19 2.5 MG Albuterol 2.5 mg Q2HPRN PRN NEB 11/09/24 16:15 Ipratropium [place] 0.5 mg Q6HWA NEB 11/09/24 18:00 11/10/24 12:20 0.5 MG Ipratropium [place] 0.5 mg Q2HPRN PRN NEB 11/09/24 16:15 Pantoprazole Sodium 40 mg BID IV 11/09/24 22:00 11/10/24 08:43 40 MG Amiodarone HCl 200 mg DAILY PO 11/10/24 10:00 11/10/24 08:43 200 MG Atorvastatin Calcium 20 mg HS PO 11/09/24 22:00 11/09/24 22:02 20 MG Calcium Acetate 667 mg TIDWM PO 11/09/24 18:00 11/09/24 18:11 667 MG Patient Own Medication 1 c DAILY PO 11/10/24 10:00 Sevelamer HCl 1,600 mg TIDWM PO 11/09/24 18:00 Hold Sucralfate 1 gm BID@0600,2200 PO 11/10/24 22:00 objective Alert and oriented x 3 NAD Lungs few rales at bases CV IR, II/ YELENA Abdomen mildly distended, phan bowels sounds No leg edema laboratory and microbiology Laboratory Tests 11/10/24 05:33 Test 11/10/24 05:33 Range/Units Serum Glucose 69 L 74-106 mg/dL Problem List 1. ESRD, had HD in ER yesterday 2. GI Bleeding, s/p EGD, report noted 3. CHF 4, Anemia 5. H/O HTN 6. Resolved hyperkalemia Will schedule HD again for tomorrow UF goal 3 L Increase Epogen dose Plan discussed with: Patient LAW PANIAGUA MD Nov 10, 2024 15:47
[2024-11-10] MEDS: SUCRALFATE 1 GM/10 ML ORAL SUSP PO SCH (21:56)
[2024-11-11] VITALS (15 sets, daily range): BP systolic 98–126; BP diastolic 36–58; PULSE 59–73; RESP 14–18; TEMP 97.5–98.7; O2SAT 92–100
[2024-11-11 05:59] LABS: Eosinophils # (auto) 0.1 10 ^3/uL (0-0.8); Hemoglobin 8.1 g/dL (12.2-16.2); Mean Corpuscular Hgb Conc. 32.2 g/dL (32.0-36.0); Monocytes # (auto) 0.6 10 ^3/uL (0-1.3); Neutrophils # (auto) 4.4 10 ^3/uL (1.6-8.6); Red Blood Cells 2.69 10^6/uL (4.0-5.20)
[2024-11-11 06:01] LABS: Basophils # (auto) 0 10 ^3/uL (0-0.2); Basophils % (auto) 0.8 % (0.0-2.0); Hematocrit 25.1 % (36.0-46.0); Lymphocytes % (auto) 15.5 % (10.0-50.0); Mean Corpuscular Volume 93.2 fL (80.0-100.0); Neutrophils % (auto) 71.7 % (37.0-80.0); Platelet Count (auto) 202 10^3/uL (140-450); Red Cell Distribution Width 15.1 % (11.8-14.3); White Blood Cell 6.2 10^3/uL (4.4-10.8)
[2024-11-11 06:17] LABS: Anion Gap 11 (5-15); Carbon Dioxide 30 mmol/L (20-31); Sodium 137 mmol/L (136-145)
[2024-11-11 06:18] LABS: Calcium 8.9 mg/dL (8.7-10.4); Chloride 96 mmol/L (98-107)
[2024-11-11 06:21] LABS: Potassium 5.7 mmol/L (3.5-5.1)
[2024-11-11 06:23] LABS: BUN/Creatinine Ratio 7.5 (10.0-20.0); Glucose 94 mg/dL (74-106)
[2024-11-11 06:24] LABS: Blood Urea Nitrogen 60 mg/dL (9-23)
--- NOTE | 2024-11-11 08:36 | DVHSR ---
APPROVED REPORT EXAM: Two-dimensional and M-mode echocardiogram with Doppler and color Doppler. Blood Pressure: 118/40 mmHg INDICATION CHF RISK FACTORS Height: 5' 2", Weight: 169 DIMENSIONS LVDd6.8 (3.8-5.7cm)LA (2D)5.9 (1.9-4.0cm)Aortic Root2.8 (2.0-3.7cm) LVDs5.8 (2.5-4.0cm)LA (MM) (1.9-4.0cm)Aortic Cusp Exc1.3 (1.5-2.0cm) EF (%) 30.0 (55-70%)Rt. Atrium4.8 (1.9-4.0cm)Asc. Aorta cm IVSd1.1 (0.7-1.1cm)RV (D) (1.8-2.4cm) PWd1.1 (0.7-1.1cm) Mitral Valve MitralMitral Stenosis E wave1.80m/sMV Mean GR.mmHg A wave1.30m/sMV Peak GR.mmHg E/A ratio1.42D MVAcm2 Aortic Valve Aortic ValveAortic Stenosis V10.70m/Cynthia Mean GR.16mmHg V22.80m/Cynthia Peak GR.32mmHg AI P 1/2 Nijb041.44ms Pulmonic Valve V20.90m/s Tricuspid Valve TR Velocity2.90m/s [id number] LEFT VENTRICLE The left ventricle is severely dilated in size. Wall thickness is normal. Ejection fraction is gia mated at 25-30%. There is severe global hypokinesis. Diastolic function is indeterminate. RIGHT VENTRICLE The right ventricle is mildly dilated in size. Systolic function is mildly decreased. ATRIA The left atrium is severely dilated in size. Right atrium is moderately dilated in size. Interatria l septum appears to be normal. MITRAL VALVE There is yswfymsg-vr-gsmpag mitral annular calcification. There is tethering of the leaflets worse i n the posterior one. There is kccsluwt-zj-lksngq tricuspid regurgitation. No significant stenosis. PULMONIC VALVE Likely normal. TRICUSPID VALVE There is mild to moderate tricuspid regurgitation. PA systolic pressure is estimated at 40-45 mm Hg. AORTIC VALVE Leaflets are not well visualized. Leaflets appeared to be moderately calcified. Peak aortic valve v elocity is 2.8 m/sec with a mean gradient of 15 mm Hg. There is mild insufficiency. GREAT VESSELS The aortic root is of normal size. Proximal ascending aorta is not visualized. PERICARDIAL EFFUSION There is no significant pericardial effusion. IVC is of normal size and collapses normally with insp iration. Conclusion Severely dilated left ventricle with ejection fraction of 25-30%. There is severe global hypokinesis. Mildly dilated right ventricle with moderately decreased systolic function. Ljqetqhs-az-wwlzfx mitral regurgitation. Fngj-si-oregyjjg tricuspid regurgitation. Likely ecrb-yw-ktbxpvcs aortic stenosis. PA systolic pressure is estimated at 40-45 mm Hg. No significant pericardial effusion.
[2024-11-11 08:49] LABS: Hepatitis B Surface Antigen Negative (Negative)
[2024-11-11 09:08] LABS: Hepatitis A Ab IgM Negative; Hepatitis B Core IgM Negative (Negative); Hepatitis C Antibody Negative (Negative)
--- NOTE | 2024-11-11 10:28 | DVHPN2 ---
Progress Note Date Seen: Nov 11, 2024 Medical Necessity Reason Pt with a Central, PICC or Fol: No Subjective Patient reports: No new complaints Review of Systems: HEENT:Normal, CVS:Normal, RESPIRATORY:Normal, GI:Normal, :Normal, MSK:Normal, NEURO:Normal Objective vital signs Vital Sign Date Time Temp Pulse Resp B/P (MAP) Pulse Ox O2 Delivery O2 Flow Rate FiO2 11/11/24 09:00 97.8 65 15 103/52 (69) 92 97.8 11/11/24 07:50 Nasal Cannula 2.0 11/11/24 07:50 28 Total Intake and Output 11/10/24 11/10/24 11/11/24 15:00 23:00 07:00 Intake Total 10 ml 250 ml 400 ml Balance 10 ml 250 ml 400 ml medications Current Medications Medications Dose Ordered Sig/Elias Route Start Time Stop Time Status Last Admin Dose Admin Ondansetron HCl 4 mg Q4HP PRN IV 11/09/24 14:30 Albuterol 2.5 mg Q6HWA [facility] 11/09/24 18:00 11/11/24 07:49 2.5 MG Albuterol 2.5 mg Q2HPRN PRN NEB 11/09/24 16:15 Ipratropium [place] 0.5 mg Q6HWA NEB 11/09/24 18:00 11/11/24 07:49 0.5 MG Ipratropium [place] 0.5 mg Q2HPRN PRN NEB 11/09/24 16:15 Pantoprazole Sodium 40 mg BID IV 11/09/24 22:00 11/11/24 09:32 40 MG Amiodarone HCl 200 mg DAILY PO 11/10/24 10:00 11/11/24 09:32 200 MG Atorvastatin Calcium 20 mg HS PO 11/09/24 22:00 11/10/24 21:57 20 MG Calcium Acetate 667 mg TIDWM PO 11/09/24 18:00 11/11/24 08:20 667 MG Patient Own Medication 1 c DAILY PO 11/10/24 10:00 Sevelamer HCl 1,600 mg TIDWM PO 11/09/24 18:00 Hold Sucralfate 1 gm BID@0600,2200 PO 11/10/24 22:00 11/11/24 05:41 1 GM Examination: GENERAL:Normal, HEENT:Normal, NECK:Normal, LUNGS:Normal, CVS:Normal, ABDOMEN:Normal, MSK:Normal, SKIN:Normal, NEURO:Normal, :Normal laboratory and microbiology Laboratory Tests 11/11/24 05:12 Test 11/11/24 05:12 Range/Units Serum Glucose 94 74-106 mg/dL Problem List/Assessment/Plan Problem List/Assessment/Plan #1 acute resp failure: on oxygen #2 esrd: on dialysis #3 acute on chronic systolic heart failure: echo #4 copd #5 h/o cva #6 gi bleed: gastritis: ppi, carafate #7 hyperkalemia: dialysis today #8 anemia; monitor advance care planning- full code- time spent 21 mins Plan discussed with: Patient My Orders My Orders Orders - NALDO GONZALEZ MD Procedure Category Date Status Time Echo 2d Mode Cardiac US 11/10/24 Resulted DOP 10:38 Date of Service: Nov 11, 2024 Billing Provider: NALDO GONZALEZ MD Common Visit Codes: [id number] INP/OBS CARE(HIGH) NALDO GONZALEZ MD Nov 11, 2024 10:28
[2024-11-11] MEDS: MIDODRINE HCL 10 MG TAB PO ONE (10:59)
[2024-11-11] MEDS: ALBUMIN 25% 100 ML IV ONE (13:25)
--- NOTE | 2024-11-11 15:20 | DVHPN2 ---
Progress Note - Dictate Date Seen: Nov 11, 2024 Medical Necessity Reason Pt with a Central, PICC or Fol: No Subjective No new complaints; hemoglobin at 8.1 Patient is tolerating diet Potassium is up to 5.7 Patient is getting dialyzed No active GI bleeding reported; stool for occult blood positive vital signs Vital Sign Date Time Temp Pulse Resp B/P (MAP) Pulse Ox O2 Delivery O2 Flow Rate FiO2 11/11/24 13:00 97.5 63 15 126/36 (66) 99 97.5 11/11/24 10:00 Nasal Cannula 2.0 11/11/24 10:00 28 Total Intake and Output 11/10/24 11/10/24 11/11/24 15:00 23:00 07:00 Intake Total 10 ml 250 ml 400 ml Balance 10 ml 250 ml 400 ml medications Current Medications Medications Dose Ordered Sig/Elias Route Start Time Stop Time Status Last Admin Dose Admin Ondansetron HCl 4 mg Q4HP PRN IV 11/09/24 14:30 Albuterol 2.5 mg Q6HWA [facility] 11/09/24 18:00 11/11/24 07:49 2.5 MG Albuterol 2.5 mg Q2HPRN PRN NEB 11/09/24 16:15 Ipratropium [place] 0.5 mg Q6HWA [facility] 11/09/24 18:00 11/11/24 07:49 0.5 MG Ipratropium [place] 0.5 mg Q2HPRN PRN NEB 11/09/24 16:15 Amiodarone HCl 200 mg DAILY PO 11/10/24 10:00 11/11/24 09:32 200 MG Atorvastatin Calcium 20 mg HS PO 11/09/24 22:00 11/10/24 21:57 20 MG Calcium Acetate 667 mg TIDWM PO 11/09/24 18:00 11/11/24 08:20 667 MG Patient Own Medication 1 c DAILY PO 11/10/24 10:00 Sucralfate 1 gm BID@0600,2200 PO 11/10/24 22:00 11/11/24 05:41 1 GM Pantoprazole Sodium 40 mg DAILY@0600 PO 11/12/24 06:00 Midodrine 5 mg BID PO 11/11/24 22:00 objective GENERAL: The patient is an elderly female who appears to be chronically ill, in no acute distress, alert and oriented x2. HEENT: Unremarkable, no jugular venous distention, palpable thyroid, or lymphadenopathy. Oral mucosa is pale and dry. LUNGS: Show diminished entry at the bases. A few crackles, no wheezing or rhonchi. CARDIOVASCULAR: Shows regular rate, 1/6 systolic murmur. ABDOMEN: Soft, mildly distended. Bowel sounds are normal in intensity and frequency. EXTREMITIES: Show no clubbing, cyanosis. There is trace edema in the ankles. laboratory and microbiology Laboratory Tests 11/11/24 05:12 Test 11/11/24 05:12 Range/Units Serum Glucose 94 74-106 mg/dL Problems(with codes): (1) Melena (2) Anemia (3) Generalized weakness (4) Acute exacerbation of congestive heart failure (5) Cardiomegaly (6) End stage renal disease on dialysis (7) Congestive heart failure (8) Hyperkalemia Prognosis Plan Continue renal diet Protonix 40 mg p.o. twice a day Carafate 1 g p.o. 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
[2024-11-11] MEDS: SODIUM CHL 0.9% 1000 ML BAG XX ONE (16:19)
--- NOTE | 2024-11-11 18:15 | DVHPN2 ---
Progress Note - Dictate Date Seen: Nov 11, 2024 Medical Necessity Reason Pt with a Central, PICC or Fol: No Subjective No new complaints vital signs Vital Sign Date Time Temp Pulse Resp B/P (MAP) Pulse Ox O2 Delivery O2 Flow Rate FiO2 11/11/24 16:27 97.6 59 14 122/58 (79) 98 97.6 11/11/24 10:00 Nasal Cannula 2.0 11/11/24 10:00 28 Total Intake and Output 11/10/24 11/10/24 11/11/24 15:00 23:00 07:00 Intake Total 10 ml 250 ml 400 ml Balance 10 ml 250 ml 400 ml medications Current Medications Medications Dose Ordered Sig/Elias Route Start Time Stop Time Status Last Admin Dose Admin Ondansetron HCl 4 mg Q4HP PRN IV 11/09/24 14:30 Albuterol 2.5 mg Q6HWA [facility] 11/09/24 18:00 11/11/24 07:49 2.5 MG Albuterol 2.5 mg Q2HPRN PRN NEB 11/09/24 16:15 Ipratropium [place] 0.5 mg Q6HWA [facility] 11/09/24 18:00 11/11/24 07:49 0.5 MG Ipratropium [place] 0.5 mg Q2HPRN PRN [facility] 11/09/24 16:15 Amiodarone HCl 200 mg DAILY PO 11/10/24 10:00 11/11/24 09:32 200 MG Atorvastatin Calcium 20 mg HS PO 11/09/24 22:00 11/10/24 21:57 20 MG Calcium Acetate 667 mg TIDWM PO 11/09/24 18:00 11/11/24 17:40 667 MG Patient Own Medication 1 c DAILY PO 11/10/24 10:00 Sucralfate 1 gm BID@0600,2200 PO 11/10/24 22:00 11/11/24 05:41 1 GM Pantoprazole Sodium 40 mg DAILY@0600 PO 11/12/24 06:00 Midodrine 5 mg BID PO 11/11/24 22:00 objective Alert and oriented x 3 NAD Lungs few rales at bases CV IR, II/ YELENA Abdomen mildly distended, phan bowels sounds No leg edema laboratory and microbiology Laboratory Tests 11/11/24 05:12 Test 11/11/24 05:12 Range/Units Serum Glucose 94 74-106 mg/dL Problem List 1. ESRD, HD was done earlier today 2. GI Bleeding, s/p EGD, Hb stable 3. CHF exacerbation CXR showed cardiomegaly with mild pulmonary edema (before HD) 4, Anemia 5. H/O HTN 6. Resolved hyperkalemia Stable from renal standpoint DC planning Plan discussed with: Patient LAW PANIAGUA MD Nov 11, 2024 18:15
[2024-11-11] MEDS: EPOETIN ALFA-EPBX 10,000 UNIT/1ML VIAL SC ONE (21:02)
[2024-11-11] MEDS: MIDODRINE HCL 10 MG TAB PO SCH (21:26)
[2024-11-12] VITALS (11 sets, daily range): BP systolic 116–130; BP diastolic 37–58; PULSE 58–66; RESP 16–19; TEMP 97.4–97.8; O2SAT 93–100
[2024-11-12 06:23] LABS: Basophils # (auto) 0.1 10 ^3/uL (0-0.2); Basophils % (auto) 0.8 % (0.0-2.0); Eosinophils # (auto) 0.2 10 ^3/uL (0-0.8); Eosinophils % (auto) 2.1 % (0.0-7.0); Hematocrit 27.5 % (36.0-46.0); Hemoglobin 8.9 g/dL (12.2-16.2); Lymphocytes # (auto) 1.1 10 ^3/uL (0.4-5.4); Lymphocytes % (auto) 13.2 % (10.0-50.0); Mean Corpuscular Hemoglobin 30.6 pg (28.0-32.0); Mean Corpuscular Hgb Conc. 32.5 g/dL (32.0-36.0); Monocytes # (auto) 0.8 10 ^3/uL (0-1.3); Monocytes % (auto) 9.7 % (0.0-12.0); Neutrophils # (auto) 6.1 10 ^3/uL (1.6-8.6); Neutrophils % (auto) 74.2 % (37.0-80.0); Nucleated Red Blood Cells % 0.1 %; Platelet Count (auto) 226 10^3/uL (140-450); Red Blood Cells 2.92 10^6/uL (4.0-5.20); Red Cell Distribution Width 15.1 % (11.8-14.3); White Blood Cell 8.2 10^3/uL (4.4-10.8)
[2024-11-12] MEDS: PANTOPRAZOLE 40 MG TAB PO SCH (06:24)
[2024-11-12 06:39] LABS: Potassium 4.6 mmol/L (3.5-5.1)
[2024-11-12 06:40] LABS: Anion Gap 11 (5-15); Carbon Dioxide 30 mmol/L (20-31)
[2024-11-12 06:43] LABS: Calcium 10.5 mg/dL (8.7-10.4); Chloride 95 mmol/L (98-107); Sodium 136 mmol/L (136-145)
[2024-11-12 06:45] LABS: BUN/Creatinine Ratio 7.4 (10.0-20.0); Glucose 83 mg/dL (74-106)
[2024-11-12 06:46] LABS: Blood Urea Nitrogen 42 mg/dL (9-23)
--- NOTE | 2024-11-12 10:40 | DVHPN2 ---
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 Patient reports that she was walking to the bathroom without her oxygen and felt short of breath. Patient reports that she is on home oxygen 3 L nasal cannula continuously. Patient also reports that she has been having dark stool for the last 2 days. Patient denies any chest pain, fever, chills, recent injury or trauma, recent illnesses, shortness of breath, back pain, abdominal pain, nausea, and vomiting. Upon examination hemodialysis nurse at bedside and pulled 2.1 L. patient reports that she uses a front wheel walker with ambulation. Patient had missed one dialysis session because of her weakness Patient is seen and examined at the bedside. Hemoglobin stable. No active issues. Objective vital signs Vital Sign Date Time Temp Pulse Resp B/P (MAP) Pulse Ox O2 Delivery O2 Flow Rate FiO2 11/12/24 09:45 98 Nasal Cannula* 2 28 11/12/24 09:00 97.4 60 19 119/40 (66) 97.4 Total Intake and Output 11/11/24 11/11/24 11/12/24 15:00 23:00 07:00 Intake Total 300 ml 575 ml Balance 300 ml 575 ml medications Current Medications Medications Dose Ordered Sig/Elias Route Start Time Stop Time Status Last Admin Dose Admin Ondansetron HCl 4 mg Q4HP PRN IV 11/09/24 14:30 Albuterol 2.5 mg Q6HWA NEB 11/09/24 18:00 11/12/24 06:33 2.5 MG Albuterol 2.5 mg Q2HPRN PRN NEB 11/09/24 16:15 Ipratropium [place] 0.5 mg Q6HWA NEB 11/09/24 18:00 11/12/24 06:33 0.5 MG Ipratropium [place] 0.5 mg Q2HPRN PRN NEB 11/09/24 16:15 Amiodarone HCl 200 mg DAILY PO 11/10/24 10:00 11/12/24 09:31 200 MG Atorvastatin Calcium 20 mg HS PO 11/09/24 22:00 11/11/24 21:26 20 MG Calcium Acetate 667 mg TIDWM PO 11/09/24 18:00 11/12/24 08:02 667 MG Patient Own Medication 1 c DAILY PO 11/10/24 10:00 Sucralfate 1 gm BID@0600,2200 PO 11/10/24 22:00 11/12/24 06:24 1 GM Pantoprazole Sodium 40 mg DAILY@0600 PO 11/12/24 06:00 11/12/24 06:24 40 MG Midodrine 5 mg BID PO 11/11/24 22:00 11/12/24 09:32 5 MG Examination GENERAL: The patient is an elderly female who appears to be chronically ill, in no acute distress, alert and oriented x2. HEENT: Unremarkable, no jugular venous distention, palpable thyroid, or lymphadenopathy. Oral mucosa is pale and dry. LUNGS: Show diminished entry at the bases. A few crackles, no wheezing or rhonchi. CARDIOVASCULAR: Shows regular rate, 1/6 systolic murmur. ABDOMEN: Soft, mildly distended. Bowel sounds are normal in intensity and frequency. EXTREMITIES: Show no clubbing, cyanosis. There is trace edema in the ankles. laboratory and microbiology Laboratory Tests 11/12/24 05:03 Test 11/12/24 05:03 Range/Units Serum Glucose 83 74-106 mg/dL Labs and/or images reviewed: Labs reviewed by me, Image(s) reviewed by me Problem List/Assessment/Plan Problem List/Assessment/Plan Likely upper GI bleeding Microcytic anemia secondary to above ESRD on hemodialysis Acute on chronic CHF exacerbation Hyperkalemia Plan Given that hemoglobin is stable at 8.9, patient has not been actively bleeding, patient is cleared to be discharged from GI standpoint. EGD completed 11/10/2024 shows 2 cm sliding-type hiatal hernia with slightly irregular squamocolumnar junction and essentially of columnar epithelium into the distal esophagus for 1-2 cm from which biopsies were obtained. Mild gastroduodenitis. Patient would need outpatient follow up with GI (patient follows [facility]) for biopsy results, elective capsule endoscopy. No urgent need of colonoscopy given the patient has multiple colonoscopies in the past. Continue Protonix 40 mg daily and Carafate 1 g p.o. twice a day Continue dialysis as per schedule Discontinue aspirin NSAIDs Plan discussed with patient in which all questions have been answered Case discussed with Dr. Costa. Plan discussed with: Patient ASHLEIGH GRAVES RESIDENT Nov 12, 2024 10:40
--- NOTE | 2024-11-12 10:59 | DVHPN2 ---
Progress Note - Dictate Date Seen: Nov 12, 2024 Medical Necessity Reason Pt with a Central, PICC or Fol: No Subjective No new complaints vital signs Vital Sign Date Time Temp Pulse Resp B/P (MAP) Pulse Ox O2 Delivery O2 Flow Rate FiO2 11/12/24 09:45 98 Nasal Cannula* 2 11/12/24 09:00 97.4 60 19 119/40 (66) 97.4 Total Intake and Output 11/11/24 11/11/24 11/12/24 15:00 23:00 07:00 Intake Total 300 ml 575 ml Balance 300 ml 575 ml medications Current Medications Medications Dose Ordered Sig/Elias Route Start Time Stop Time Status Last Admin Dose Admin Ondansetron HCl 4 mg Q4HP PRN IV 11/09/24 14:30 Albuterol 2.5 mg Q6HWA [facility] 11/09/24 18:00 11/12/24 06:33 2.5 MG Albuterol 2.5 mg Q2HPRN PRN NEB 11/09/24 16:15 Ipratropium [place] 0.5 mg Q6HWA [facility] 11/09/24 18:00 11/12/24 06:33 0.5 MG Ipratropium [place] 0.5 mg Q2HPRN PRN NEB 11/09/24 16:15 Amiodarone HCl 200 mg DAILY PO 11/10/24 10:00 11/12/24 09:31 200 MG Atorvastatin Calcium 20 mg HS PO 11/09/24 22:00 11/11/24 21:26 20 MG Calcium Acetate 667 mg TIDWM PO 11/09/24 18:00 11/12/24 08:02 667 MG Patient Own Medication 1 c DAILY PO 11/10/24 10:00 Sucralfate 1 gm BID@0600,2200 PO 11/10/24 22:00 11/12/24 06:24 1 GM Pantoprazole Sodium 40 mg DAILY@0600 PO 11/12/24 06:00 11/12/24 06:24 40 MG Midodrine 5 mg BID PO 11/11/24 22:00 11/12/24 09:32 5 MG objective Alert and oriented x 3 NAD Lungs few rales at bases CV IR, II/ YELENA Abdomen mildly distended, phan bowels sounds No leg edema laboratory and microbiology Laboratory Tests 11/12/24 05:03 Test 11/12/24 05:03 Range/Units Serum Glucose 83 74-106 mg/dL Problem List 1. ESRD, stable 2. GI Bleeding, s/p EGD, Hb stable 3. CHF exacerbation CXR showed cardiomegaly with mild pulmonary edema (before HD), resolved 4, Anemia 5. H/O HTN 6. Resolved hyperkalemia Patient is requesting to go home today DC planning Plan discussed with: Patient LAW PANIAGUA MD Nov 12, 2024 10:59
--- NOTE | 2024-11-12 11:34 | DVHPN2 ---
Eyes: No Pain, No Vision change, No Conjunctivae inflammation, No Eyelid inflammation, No Other, No Redness ENT: No Ear pain, No Ear discharge, No Nose pain, No Nose discharge, No Nose congestion, No Mouth pain, No Mouth swelling, No Throat pain, No Throat swelling, No Other Cardiovascular: No Chest Pain, No Palpitations, No Orthopnea, No Paroxysmal Noc. Dyspnea, No Edema, No Lt Headedness, No Other Respiratory: No Cough, No Dry; Shortness of breath; No SOB with excertion, No Wheezing, No Hemoptysis, No Pleuritic Pain, No Sputum, No Other Gastrointestinal: No Nausea, No Vomiting, No Abdominal Pain, No Diarrhea, No Constipation; Melena; No Hematochezia, No Other Genitourinary: No Dysuria, No Frequency, No Incontinence, No Hematuria, No Retention, No Other Musculoskeletal: No other, No neck pain, No shoulder pain, No arm pain, No back pain, No hand pain, No leg pain, No foot pain Skin: No Rash, No Lesions, No Jaundice, No Bruising, No Other Objective Vitals Vital Signs Date Time Temp Pulse Resp B/P (MAP) Pulse Ox O2 Delivery O2 Flow Rate FiO2 11/12/24 11:24 58 18 100 11/12/24 11:18 Nasal Cannula 2.0 11/12/24 11:18 28 11/12/24 09:00 97.4 119/40 (66) 97.4 Intake/Output Intake and Output 11/12/24 07:00 Intake Total 875 ml Balance 875 ml Intake Oral 875 ml # Bowel Movements 1 Medications Current Medications Medications Dose Ordered Sig/Elias Route Start Time Stop Time Status Last Admin Dose Admin Ondansetron HCl 4 mg Q4HP PRN IV 11/09/24 14:30 Albuterol 2.5 mg Q6HWA [facility] 11/09/24 18:00 11/12/24 11:18 2.5 MG Albuterol 2.5 mg Q2HPRN PRN NEB 11/09/24 16:15 Ipratropium [place] 0.5 mg Q6HWA [facility] 11/09/24 18:00 11/12/24 11:18 0.5 MG Ipratropium [place] 0.5 mg Q2HPRN PRN [facility] 11/09/24 16:15 Amiodarone HCl 200 mg DAILY PO 11/10/24 10:00 11/12/24 09:31 200 MG Atorvastatin Calcium 20 mg HS PO 11/09/24 22:00 11/11/24 21:26 20 MG Calcium Acetate 667 mg TIDWM PO 11/09/24 18:00 11/12/24 08:02 667 MG Patient Own Medication 1 c DAILY PO 11/10/24 10:00 Sucralfate 1 gm BID@0600,2200 PO 11/10/24 22:00 11/12/24 06:24 1 GM Pantoprazole Sodium 40 mg DAILY@0600 PO 11/12/24 06:00 11/12/24 06:24 40 MG Midodrine 5 mg BID PO 11/11/24 22:00 11/12/24 09:32 5 MG Laboratory Results Laboratory Tests 11/12/24 05:03 Chemistry Test 11/12/24 05:03 Calcium Level 10.5 mg/dL (8.7-10.4) H SHIRLEY QUINTERO MD Nov 12, 2024 11:34
--- NOTE | 2024-11-12 12:17 | DVHDS2 ---
Discharge Summary Date of Admission Nov 09, 2024 at 14:17 Date of Discharge: Nov 12, 2024 Admitting Diagnosis #1 acute resp failure #2 esrd: on dialysis #3 acute on chronic systolic heart failure #4 copd #5 h/o cva #6 gi bleed: gastritis #7 hyperkalemia #8 anemia Labs/Diagnostic Data: Laboratory Results Test 11/12/24 05:03 11/10/24 23:38 11/10/24 12:00 11/10/24 05:33 White Blood Count 8.2 10^3/uL (4.4-10.8) Red Blood Count 2.92 10^6/uL (4.0-5.20) Hemoglobin 8.9 g/dL (12.2-16.2) Hematocrit 27.5 % (36.0-46.0) Mean Corpuscular Volume 94.0 fL (80.0-100.0) Mean Corpuscular Hemoglobin 30.6 pg (28.0-32.0) Mean Corpuscular Hemoglobin Concent 32.5 g/dL (32.0-36.0) Red Cell Distribution Width 15.1 % (11.8-14.3) Platelet Count 226 10^3/uL (140-450) Mean Platelet Volume 8.1 fL (6.9-10.8) Neutrophils (%) (Auto) 74.2 % (37.0-80.0) Lymphocytes (%) (Auto) 13.2 % (10.0-50.0) Monocytes (%) (Auto) 9.7 % (0.0-12.0) Eosinophils (%) (Auto) 2.1 % (0.0-7.0) Basophils (%) (Auto) 0.8 % (0.0-2.0) Neutrophils # (Auto) 6.1 10 ^3/uL (1.6-8.6) Lymphocytes # (Auto) 1.1 10 ^3/uL (0.4-5.4) Monocytes # (Auto) 0.8 10 ^3/uL (0-1.3) Eosinophils # (Auto) 0.2 10 ^3/uL (0-0.8) Basophils # (Auto) 0.1 10 ^3/uL (0-0.2) Nucleated Red Blood Cells 0.1 % Sodium Level 136 mmol/L (136-145) Potassium Level 4.6 mmol/L (3.5-5.1) Chloride Level 95 mmol/L (98-107) Carbon Dioxide Level 30 mmol/L (20-31) Anion Gap 11 (5-15) Blood Urea Nitrogen 42 mg/dL (9-23) Creatinine 5.71 mg/dL (0.550-1.02) Glomerular Filtration Rate Calc 7 mL/min (>90) BUN/Creatinine Ratio 7.4 (10.0-20.0) Serum Glucose 83 mg/dL (74-106) Calcium Level 10.5 mg/dL (8.7-10.4) Stool Occult Blood Positive (Negative) Stool Occult Blood Sample #3 (Negative) Prothrombin Time 11.3 sec (9.3-11.8) Prothrombin Time INR 1.07 (0.9-1.15) Activated Partial Thromboplast Time 29.9 SEC (24.5-34.5) Total Bilirubin 0.8 mg/dL (0.2-1.0) Aspartate Amino Transferase (AST) 21 U/L (13-40) Alanine Aminotransferase (ALT) < 9 U/L (7-40) Alkaline Phosphatase 104 U/L (46-116) Total Protein 8.2 g/dL (5.7-8.2) Albumin 4.0 g/dL (3.2-4.8) Test 11/09/24 11:12 11/09/24 09:59 11/09/24 08:00 Hepatitis A IgM Antibody Negative Hepatitis B Surface Antigen Negative (Negative) Hepatitis B Core IgM Antibody Negative (Negative) Hepatitis C Antibody Negative (Negative) POC Glucose 76 mg/dl (70-106) Troponin I High Sensitivity 23 ng/L (</=34) B-Type Natriuretic Peptide 1847.07 pg/mL (0-100) Other Laboratory Tests 11/12/24 05:03 Brief Hx & Hospital Course: This is a 75 years old female with past medical history of hypertension, hyperlipidemia, COPD, congestive heart failure, end-stage renal disease on hemodialysis Friday they Friday and Friday, TIA, 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 The patient said she was walking in the bathroom without her oxygen and felt shortness for breath. She had 3 L of oxygen at home. She also had some dark stools for two days. The patient was admitted. The patient was put on Lasix 40 mg IV q.day. the patient continuing to have hemodialysis. Patient had occult blood checked in his was positive. Her hemoglobin remained stable around 8-9. GI specialist see the patient. EGD was done. It showed: EGD completed 11/10/2024 shows 2 cm sliding-type hiatal hernia with slightly irregular squamocolumnar junction and essentially of columnar epithelium into the distal esophagus for 1-2 cm from which biopsies were obtained. Mild gastroduodenitis. Per GI specialist: Patient would need outpatient follow up with GI (patient follows [facility]) for biopsy results, elective capsule endoscopy. No urgent need of colonoscopy given the patient has multiple colonoscopies in the past. Continue Protonix 40 mg daily and Carafate 1 g p.o. twice a day. The patient also received hemodialysis as per schedule . The patient oxygen back to her baseline which is 2-3 L. The patient ambulate. The patient tolerated diet. I am going to discharge her home. Advised her to follow up with primary care physician 1-2 weeks. Follow up with GI specialist per schedule for an elective capsule endoscopy. Physical exam: HEENT: Normocephalic atraumatic pupils equal react to light and accommodation. Extraocular muscles intact, conjunctiva pink, oropharynx moist, no thrush, no exudate. Lymphatic: No lymphadenopathy Cardiovascular exam: S1, S2 was heard. No murmurs, rubs, gallops Lung: Clear on auscultation bilaterally, no wheeze, rale, rhonchi. GI: Abdominal soft, nondistended, nontenderness, positive bowel sounds. Extremity: No crepitus, cyanosis, edema. Pedal pulses present bilateral. Full range of motion. Skin: Normal turgor, no rash. Psych: Alert, oriented x3. Neurology: No focal deficits, cranial nerve II to XII grossly intact. This medical document was created using an electronic medical record system with [employer] direct computerized dictation system. Although this document has been carefully reviewed, there may still be some phonetic and typographical errors. These areas are purely typographical due to imperfections of the software programs, and do not reflect any compromise in the patient's medical care. Condition at Discharge: Stable Final Diagnosis/Problems List #1 acute resp failure #2 esrd: on dialysis #3 acute on chronic systolic heart failure #4 copd #5 h/o cva #6 gi bleed: gastritis #7 hyperkalemia #8 anemia Discharge Disposition: Home Discharge Statement: "Patient was advised to return to the ER or call 911 if any headaches, dizziness, shortness of breath, chest pain, abdominal pain, bleeding, fevers, or worsening of medical condition. Patient was counseled about treatment plan, medications, possible side effects, patientverbalized understanding. All questions were answered to the best of my ability. This discharge took greater then 30 minutes in planning, reviewing documentation, counseling the patient, and discussing with other team members." ASSESSMENT ASSESSMENT Assessment Date of Service: Nov 12, 2024 Billing Provider: SHIRLEY QUINTERO MD Common Visit Codes: 13363-ZQJ/OBS DISCH DAY >30min SHIRLEY QUINTERO MD Nov 12, 2024 12:17
[2024-11-12] MEDS ORDERED: PANT40T PO (12:18)
[2024-11-12] MEDS ORDERED: SUCR1SUS26 PO (12:18)
== END 2024-11-12 18:30 | disposition home or self-care (01) | DRG 377 ==
LOC: EDBD 06:09 → EDUNIT# 06:09 → ER 06:09 → OVERFLOW 14:17 → CENTRAL 22:25
PROVIDERS: ATTEND Internal Medicine
PROC: 5A1D70Z Performance of Urinary Filtration, Intermittent, Less than 6 Hours Per Day (ICD-10-PCS; 2024-11-09)
PROC: 0DB98ZX Excision of Duodenum, Via Natural or Artificial Opening Endoscopic, Diagnostic (ICD-10-PCS; 2024-11-10)
PROC: 0DB48ZX Excision of Esophagogastric Junction, Via Natural or Artificial Opening Endoscopic, Diagnostic (ICD-10-PCS; 2024-11-10)
PROC: 0DB68ZX Excision of Stomach, Via Natural or Artificial Opening Endoscopic, Diagnostic (ICD-10-PCS; principal; 2024-11-10 13:40)
PROC: 5A1D70Z Performance of Urinary Filtration, Intermittent, Less than 6 Hours Per Day (ICD-10-PCS; 2024-11-11)
DX: K29.71 Gastritis, unspecified, with bleeding (principal); I50.23 Acute on chronic systolic (congestive) heart failure; J96.00 Acute respiratory failure, unspecified whether with hypoxia or hypercapnia; N18.6 End stage renal disease; I13.2 Hypertensive heart and chronic kidney disease with heart failure and with stage 5 chronic kidney disease, or end stage renal disease; N17.9 Acute kidney failure, unspecified; K29.91 Gastroduodenitis, unspecified, with bleeding; K26.4 Chronic or unspecified duodenal ulcer with hemorrhage; K25.4 Chronic or unspecified gastric ulcer with hemorrhage; E87.5 Hyperkalemia; J44.9 Chronic obstructive pulmonary disease, unspecified; E78.5 Hyperlipidemia, unspecified; D63.1 Anemia in chronic kidney disease; D50.9 Iron deficiency anemia, unspecified; K44.9 Diaphragmatic hernia without obstruction or gangrene; Z90.49 Acquired absence of other specified parts of digestive tract; Z86.73 Personal history of transient ischemic attack (TIA), and cerebral infarction without residual deficits; Z88.6 Allergy status to analgesic agent; Z88.5 Allergy status to narcotic agent; Z99.2 Dependence on renal dialysis; Z83.3 Family history of diabetes mellitus; Z82.0 Family history of epilepsy and other diseases of the nervous system; Z82.49 Family history of ischemic heart disease and other diseases of the circulatory system; Z82.61 Family history of arthritis
CPT/HCPCS: 36415; 43239; 71045; 80048; 80053; 80074; 82270; 82962; 83880; 84132; 84484; 85025; 85610; 85730; 90935; 93005; 93306; 94640; 99291; 99292; G0378; J1815; J2250; J2470; P9047

== ENCOUNTER 2024-11-15 17:17 | Inpatient (IN) | payer OTHER ==
[~2024-11-15] VITALS: Ht 149.9 cm; Wt 74.0 kg
[~2024-11-15 17:17] MED LIST changes: +PANT40T PO; +SUCR1SUS26 PO
[2024-11-15] MEDS ORDERED: SODIUM CHLORIDE 0.9% 1,000 ML IV ONE (17:30)
--- NOTE | 2024-11-15 17:34 | ED.PDOC ---
GI ASSESSMENT HPI Comments HPI: Poor Historian. HPI: 79-year-old female brought in via EMS presents to the ED with a chief complaint of rectal bleeding onset today. Patient was discharged on 11/12/2024 from this hospital with the diagnosis of acute resp failure, esrd: on dialysis, acute on chronic systolic heart failure, copd, h/o cva, gi bleed: gastritis, hyperkalemia, anemia. Patient was discharge and symptoms had improved. She went to the restroom today around 16:00, noticed about 2 cups of blood. Patient denies any abdominal pain. Patient denies being on blood thinners. Patient says she has been scoped for this last week. Initial Vital Signs: Temp : 98.4 F BP:114/60 HR: 61 RR: 18 SpO2: 99% RA Past Medical History: COPD, CHF, CKD, CVA, HTN, Gastritis Past Surgical History: Tonsillectomy, Cholecystomy Social History: Denies smoking, ETOH, or drug use. Allergies: NKDA REVIEW OF SYSTEMS: CONSTITUTIONAL: Denies acute: fever, diaphoresis, chills, HEAD: Denies acute: headache, photophobia Eyes: Denies acute: Double vision, vision loss, eye pain, eye discharge. EARS: Denies acute: tinnitus, hearing loss, ear discharge, ear pain, THROAT: Denies acute: sore throat, swelling, difficulty swallowing , pain with swallowing, change in voice. NECK: Denies acute: neck pain, neck swelling, stiff neck. HEART: Denies acute : chest pain, palpitations, LUNGS: Denies acute: SOB, wheezing, cough, hemoptysis ABDOMEN: Denies acute: abdominal pain, Nausea, Vomiting, diarrhea, melena , hematemesis, SKIN: Denies acute: rash, redness, lesions, itchiness. EXTREMITIES: Denies acute: calf pain, numbness, tingling, weakness, denies pain in extremity. Denies acute: Low back pain. Neuro: Denies acute: focal neurological deficit, motor or sensory focal neurological deficit, tremors, seizure like activity, confusion, dizziness, change in mental status, loss of bowel or bladder function, cauda equina like symptoms. : Denies acute: dysuria, hematuria, flank pain, increase in urinary frequency. PSYCH: Denies acute: hallucination, suicidal ideation, homicidal ideation. FEMALE: Denies acute: abnormal vaginal bleeding, foul odor, unusual discharge. PHYSICAL EXAM: General: no acute distress, awake and alert. Head: normocephalic, atraumatic. Neck: supple, trachea is midline, no swelling. Throat: Normal phonation. Eyes:, no erythema, no purulent discharge, no proptosis, no icterus. Heart: regular rate, regular rhythm, no significant murmur appreciated. Lungs: no apparent respiratory distress, Able to speak in full sentences. No wheezing, no rhonchi, no crackles. No stridors Clear to auscultation bilaterally. Abdomen: non tender to palpation, non distended, soft, no guarding, no rebound, + bowel sounds. Neuro: Awake, Alert, oriented to name, self, situation, follows commands GCS=15. Speech is normal. Skin: no petechia, no purpura, no cyanosis, non-pale, not jaundice. Lower extremities: --no - Pitting edema no deformity, no focal swelling, no calf TTP. Makes eye contact. moves all four extremities. Face: no apparent facial droop. Time Seen by MD: 17:22 Primary Care Provider: UNKNOWN Reviewed Notes: Medications, Allergies Allergies: Coded Allergies: Hydrocodone (Verified Allergy, Unknown, 05/17/18) Home Meds Active Scripts Sucralfate (CARAFATE SUSP) 1 Gm/10 Ml Ss, 1 GM PO BID@0600,2200, #120 ML 5 Refills Prov:SHIRLEY QUINTERO MD 11/12/24 Pantoprazole Sodium Sesquihydr (Pantoprazole Sodium) 40 Mg Tab, 40 MG PO DAILY@0600, #30 TAB 5 Refills Prov:SHIRLEY QUINTERO MD 11/12/24 Reported Medications Sevelamer Carbonate (Renvela) 800 Mg Tab, 2 TAB PO TID 05/18/24 Midodrine Hcl (Midodrine Hcl) 5 Mg Tab, 1 TAB PO BID PRN for DIZZINESS 05/18/24 Calcium Acetate (PHOSLO CAPSULE) 667 Mg Cp, 4 CAP PO TID, #180 CAP 5 Refills 01/01/18 B Complex W/ C (B COMPLEX/VITAMIN C) Vit C Cap, 1 C PO DAILY, CAP 12/30/17 Amiodarone Hcl (Amiodarone Hcl) 200 Mg Tab, 200 MG PO DAILY for 30 Days 12/30/17 Atorvastatin Calcium (Lipitor) 20 Mg Tab, 1 TAB PO HS, #90 TAB 1 Refill 12/30/17 Information Source: Patient, Emergency Med Personnel Mode of Arrival: EMS Timing: Hours Duration: Since onset Prehospital treatment: None Quality: None Stool: Blood Streaked Severity: Moderate Recent: None Recent Hx of: None Pain Location: None Modifying Factors: Nothing Associated sign and symptoms: Blood in Stool, Other (rectal bleed) Past Medical History PAST MEDICAL HISTORY: CHF, COPD, CVA, ESRD, High Lipids, HTN, TIA Surgical History: Cholecystectomy, Tonsillectomy [employer] History: Pt Confused Family History Family History: No family hx of DM, No family hx of Heart elaina, No family hx of HTN, No family hx of Lung elaina Social History Smoker: Non-Smoker Alcohol: Denies ETOH Use Drugs: Denies Drug Use Lives In: Home Was a procedure done? Was a procedure done?: No GI differential Dx Differential Diagnosis: Other (Diverticulitis, colitis, fistula, neoplasm, hemorrhoids, anal fissures, constipation, Crohn's disease, ulcerative colitis) X-Ray, Labs, Meds, VS Vital Signs Date Time Temp Pulse Resp B/P (MAP) Pulse Ox O2 Delivery O2 Flow Rate FiO2 11/15/24 18:55 60 11/15/24 17:30 81.8 61 18 114/60 (78) 99 Lab Test 11/15/24 21:45 11/15/24 20:00 11/15/24 18:44 Range/Units Troponin I High Sensitivity Pending 23 22 </=34 ng/L White Blood Count 5.3 # 4.4-10.8 10^3/uL Red Blood Count 2.52 L 4.0-5.20 10^6/uL Hemoglobin 7.5 #L 12.2-16.2 g/dL Hematocrit 23.1 #L 36.0-46.0 % Mean Corpuscular Volume 91.6 80.0-100.0 fL Mean Corpuscular Hemoglobin 29.8 28.0-32.0 pg Mean Corpuscular Hemoglobin Concent 32.5 32.0-36.0 g/dL Red Cell Distribution Width 15.1 H 11.8-14.3 % Platelet Count 291 140-450 10^3/uL Mean Platelet Volume 7.2 6.9-10.8 fL Neutrophils (%) (Auto) 68.8 37.0-80.0 % Lymphocytes (%) (Auto) 17.6 10.0-50.0 % Monocytes (%) (Auto) 10.0 0.0-12.0 % Eosinophils (%) (Auto) 2.5 0.0-7.0 % Basophils (%) (Auto) 1.1 0.0-2.0 % Neutrophils # (Auto) 3.6 1.6-8.6 10 ^3/uL Lymphocytes # (Auto) 0.9 0.4-5.4 10 ^3/uL Monocytes # (Auto) 0.5 0-1.3 10 ^3/uL Eosinophils # (Auto) 0.1 0-0.8 10 ^3/uL Basophils # (Auto) 0.1 0-0.2 10 ^3/uL Nucleated Red Blood Cells 0.1 % Prothrombin Time 10.9 9.3-11.8 sec Prothrombin Time INR 1.03 0.9-1.15 Activated Partial Thromboplast Time 29.1 24.5-34.5 SEC Sodium Level 134 L 136-145 mmol/L Potassium Level 4.3 3.5-5.1 mmol/L Chloride Level 93 L 98-107 mmol/L Carbon Dioxide Level 32 H 20-31 mmol/L Anion Gap 9 5-15 Blood Urea Nitrogen 32 H 9-23 mg/dL Creatinine 4.86 H 0.550-1.02 mg/dL Glomerular Filtration Rate Calc 9 >90 mL/min BUN/Creatinine Ratio 6.6 L 10.0-20.0 Serum Glucose 72 L 74-106 mg/dL Lactic Acid Level 1.0 0.4-2.0 mmol/L Calcium Level 9.3 8.7-10.4 mg/dL Total Bilirubin 0.5 0.2-1.0 mg/dL Aspartate Amino Transferase (AST) 13 13-40 U/L Alanine Aminotransferase (ALT) 11 7-40 U/L Alkaline Phosphatase 99 46-116 U/L Total Protein 7.4 5.7-8.2 g/dL Albumin 3.6 3.2-4.8 g/dL Lipase 42 12-53 U/L [facility] [id number] [facility] [id number] Ph: [phone] DIAGNOSTIC IMAGING Diagnostic Imaging Report : [id number] Signed PATIENT: HOMAR CASANOVA ACCT: [id number] UNIT: [id number] : 1945 LOC: ER ROOM / BED: / AGE / SEX: 79 / F ADM STATUS: REG ER SERVICE 26 ORDERING PHYSICIAN: MISA WEBB DO PROCEDURE(s): CXRP - CHEST PORTABLE REASON: gi bleed ORDER NUMBER(s): [id number], ACCESSION NUMBER(s): [id number] EXAM: XR Chest, 1 View CLINICAL INDICATION: gi bleed TECHNIQUE: Frontal view of the chest. COMPARISON: XY CHEST PORTABLE on DOS: 11/09/24, XY CHEST PORTABLE on DOS: 05/17/24, CHEST PORTABLE on DOS: 06/09/20, CHEST PORTABLE on DOS: 06/08/20, CHEST XRAY 1 VIEW on DOS: 07/29/19 FINDINGS: LUNGS AND PLEURAL SPACES: See below. HEART: Cardiomegaly with mild congestion. MEDIASTINUM: Unremarkable. Normal mediastinal contour. BONES/JOINTS: Unremarkable. No acute fracture. OTHER FINDINGS: . . IMPRESSION: Cardiomegaly with mild congestion. ATED BY: ANUP LIRIANO MD DICTATED DATE/TIME: 11/15/241820 SIGNED BY: ANUP LIRIANO MD SIGNED DATE/TIME: 11/15/241820 CC: [place] [id number] Ph: [phone] DIAGNOSTIC IMAGING Diagnostic Imaging Report : [id number] Signed PATIENT: HOMAR CASANOVA ACCT: [id number] UNIT: [id number] : 1945 LOC: ER ROOM / BED: / AGE / SEX: 79 / F ADM STATUS: REG ER SERVICE 26 ORDERING PHYSICIAN: MISA WEBB DO PROCEDURE(s): ABPL - CT AB PEL WO CON-NO ORAL OR IV REASON: gi bleed ORDER NUMBER(s): [id number], ACCESSION NUMBER(s): [id number] Exam: CT CT AB PEL WO CON-NO ORAL OR IV History: gi bleed Comparison Study: 03/06/2023 report only TECHNIQUE: Multidetector CT of the abdomen and pelvis without contrast. Axial, coronal and sagittal multiplanar reformats were obtained from the axial data set by the technologist. Radiation Dose Information: CT Dose: CTDI volume is 18.42 mGy. Dose-length product is 857.86 mGy*cm FINDINGS: Mild bibasilarfibrotic changes/ pulmonary edema. Moderate cardiomegaly. Liver, spleen, pancreas and adrenal glands unremarkable. The gallbladder is not definitely visualized question cholecystectomy. There is moderate to severe atrophy of bilateral kidneys. Right renal upper pole cyst with 1 cm exophytic left renal lower pole soft tissue density lesion an additional Multiple small bilateral renal cysts. No hydronephrosis bilaterally. Bilateral ureters unremarkable. Urinary bladder is decompressed. Bulky appearance of the lower uterine segment / cervical region. Uterine vascular calcifications. Otherwise, uterus and adnexal are unremarkable. Small hiatal hernia. Mild gastric wall thickening. Small bowel loops unremarkable. There is swirling of the mesenteric vessels of the midabdomen without associated bowel obstruction. The small bowel loops are unremarkable. Appendix is unremarkable. Descending colon and sigmoid diverticulosis with minimal fat stranding adjacent to the sigmoid. Moderate amount of fecal material within the colon. No evidence of intraperitoneal free air or free fluid. Evidence of aortic aneurysm. [id number] atherosclerotic calcification of the aorta and bilateral iliacs. No significant lymphadenopathy. There are multiple periumbilical ventral abdominal small to moderate sized fat containing hernias. Small fat containing right inguinal hernia. Mild subcutaneous fat edema of the abdomen and pelvis. Foci of calcifications within the bilateral breast with Partially imaged breast tissue. No destructive osseous lesions noted. IMPRESSION: Colonic diverticulosis with minimal fat stranding adjacent to the sigmoid. Correlate for mild sigmoid diverticulitis. Mild gastric wall thickening which may be due to inadequate distention with gastritis not excluded. Additional findings as above. ATED BY: TRUDY ALLEN DO DICTATED DATE/TIME: 11/15/241829 SIGNED BY: TRUDY ALLEN DO SIGNED DATE/TIME: 11/15/241829 CC: Time of 1ST Reevaluation: 17:52 Reevaluation 1ST: Unchanged Time of 2ND Reevaluation: 20:43 (The case was discussed with the [employer] admitting team (HPI, physical exam, labs and diagnostic tests that were available at the time of disposition, ED course, treatment plan) on the phone. They authorized us to admit the patient here to our facility for further evaluation and treatment. Patient is anemic. Dr. Hart authorization [id number]. ) Reevaluation 2ND: Unchanged Patient Education/Counseling: Diagnosis, Treatment Family Education/Counseling: No Family Present Comments Patient presented with the above HPI.--rectal bleed----workup was initiated. patient was found with the above mentioned diagnosis. the following medications were ordered: please refer to order lists of meds and tests obtained by myself Dr. Webb. Patient ED course and VS have been stabilized. Patient has been reassessed in the ED and remained in a stable condition. Pertinent incidental findings were discussed with the patient and/or family. Patient/family voices understanding and is agreeable with plan. Patient has been observed in the ED adequate length of time to insure improvement/stability. Escalation of care considered: Consideration of escalation to observation or admission Patient was ADMITTED to the medicine team for further evaluation and treatment of their presentation. All the reports of any imaging studies that were ordered by myself were reviewed by myself. Departure 1 Departure Time of Disposition: 18:17 Impression: Primary Impression: Rectal bleeding Additional Impression: Anemia Disposition: ADMITTED INPATIENT [facility]mit to: [facility] Condition: Guarded Discharged With: Self Critical Care Note Critical Care Time?: No Heart Score Heart Score: Heart Score Response (Comments) Value History N/A 0 EKG N/A 0 Age N/A 0 Risk Factors N/A 0 Troponin N/A 0 Total 0 I personally scribed for MISA WEBB DO ([email or web address]) on 11/15/24 at 17:34. Electronically submitted by Joanna White ([email or web address]). I personally scribed for MISA WEBB DO ([email or web address]) on 11/15/24 at 20:17. Electronically submitted by Neena Kent ([email or web address]). MISA EWBB DO Nov 15, 2024 17:34
--- NOTE | 2024-11-15 18:24 | DVH ---
EXAM: XR Chest, 1 View CLINICAL INDICATION: gi bleed TECHNIQUE: Frontal view of the chest. COMPARISON: XY CHEST PORTABLE on DOS: 11/09/24, XY CHEST PORTABLE on DOS: 05/17/24, CHEST PORTABLE on DOS: 06/09/20, CHEST PORTABLE on DOS: 06/08/20, CHEST XRAY 1 VIEW on DOS: 07/29/19 FINDINGS: LUNGS AND PLEURAL SPACES: See below. HEART: Cardiomegaly with mild congestion. MEDIASTINUM: Unremarkable. Normal mediastinal contour. BONES/JOINTS: Unremarkable. No acute fracture. OTHER FINDINGS: . . IMPRESSION: Cardiomegaly with mild congestion.
--- NOTE | 2024-11-15 18:33 | DVH ---
Exam: CT CT AB PEL WO CON-NO ORAL OR IV History: gi bleed Comparison Study: 03/06/2023 report only TECHNIQUE: Multidetector CT of the abdomen and pelvis without contrast. Axial, coronal and sagittal m ultiplanar reformats were obtained from the axial data set by the technologist. Radiation Dose Information: CT Dose: CTDI volume is 18.42 mGy. Dose-length product is 857.86 mGy*cm FINDINGS: Mild bibasilarfibrotic changes/ pulmonary edema. Moderate cardiomegaly. Liver, spleen, pancreas and adrenal glands unremarkable. The gallbladder is not definitely visualized question cholecystectomy. There is moderate to severe atrophy of bilateral kidneys. Right renal upper pole cyst with 1 cm exoph ytic left renal lower pole soft tissue density lesion an additional Multiple small bilateral renal cy sts. No hydronephrosis bilaterally. Bilateral ureters unremarkable. Urinary bladder is decompressed. Bulky appearance of the lower uterine segment / cervical region. Uterine vascular calcifications. Ot herwise, uterus and adnexal are unremarkable. Small hiatal hernia. Mild gastric wall thickening. Small bowel loops unremarkable. There is swirling of the mesenteric vessels of the midabdomen without associated bowel obstruction. The small bowel loo ps are unremarkable. Appendix is unremarkable. Descending colon and sigmoid diverticulosis with minim al fat stranding adjacent to the sigmoid. Moderate amount of fecal material within the colon. No evidence of intraperitoneal free air or free fluid. Evidence of aortic aneurysm. [id number] atherosclerotic calcification of the aorta and bilatera l iliacs. No significant lymphadenopathy. There are multiple periumbilical ventral abdominal small to moderate sized fat containing hernias. Sm all fat containing right inguinal hernia. Mild subcutaneous fat edema of the abdomen and pelvis. Foci of calcifications within the bilateral breast with Partially imaged breast tissue. No destructiv e osseous lesions noted. IMPRESSION: Colonic diverticulosis with minimal fat stranding adjacent to the sigmoid. Correlate for mild sigmoi d diverticulitis. Mild gastric wall thickening which may be due to inadequate distention with gastritis not excluded. Additional findings as above.
[2024-11-15 19:05] LABS: Basophils # (auto) 0.1 10 ^3/uL (0-0.2); Basophils % (auto) 1.1 % (0.0-2.0); Eosinophils # (auto) 0.1 10 ^3/uL (0-0.8); Eosinophils % (auto) 2.5 % (0.0-7.0); Hematocrit 23.1 % (36.0-46.0); Hemoglobin 7.5 g/dL (12.2-16.2); Lymphocytes # (auto) 0.9 10 ^3/uL (0.4-5.4); Lymphocytes % (auto) 17.6 % (10.0-50.0); Mean Corpuscular Hemoglobin 29.8 pg (28.0-32.0); Mean Corpuscular Hgb Conc. 32.5 g/dL (32.0-36.0); Mean Corpuscular Volume 91.6 fL (80.0-100.0); Monocytes # (auto) 0.5 10 ^3/uL (0-1.3); Neutrophils # (auto) 3.6 10 ^3/uL (1.6-8.6); Neutrophils % (auto) 68.8 % (37.0-80.0); Nucleated Red Blood Cells % 0.1 %; Platelet Count (auto) 291 10^3/uL (140-450); Red Blood Cells 2.52 10^6/uL (4.0-5.20); Red Cell Distribution Width 15.1 % (11.8-14.3); White Blood Cell 5.3 10^3/uL (4.4-10.8)
[2024-11-15 19:18] LABS: INR 1.03 (0.9-1.15); Partial Thromboplastin Time 29.1 SEC (24.5-34.5); Prothrombin Time 10.9 sec (9.3-11.8)
[2024-11-15 19:31] LABS: Alanine Aminotransferase 11 U/L (7-40); Albumin 3.6 g/dL (3.2-4.8); Alkaline Phosphatase 99 U/L (46-116); Anion Gap 9 (5-15); BUN/Creatinine Ratio 6.6 (10.0-20.0); Calcium 9.3 mg/dL (8.7-10.4); Lipase 42 U/L (12-53); Potassium 4.3 mmol/L (3.5-5.1)
[2024-11-15 19:32] LABS: Bilirubin, Total 0.5 mg/dL (0.2-1.0); Total Protein 7.4 g/dL (5.7-8.2)
[2024-11-15 19:33] LABS: Aspartate Aminotransferase 13 U/L (13-40); Blood Urea Nitrogen 32 mg/dL (9-23); Carbon Dioxide 32 mmol/L (20-31); Chloride 93 mmol/L (98-107); Glucose 72 mg/dL (74-106); Sodium 134 mmol/L (136-145)
[2024-11-15] MEDS ORDERED: DOCUSATE SOD 100 MG CAP PO PRN (21:15)
[2024-11-15] MEDS ORDERED: ONDANSETRON HCL 4 MG/2 ML VIAL IV PRN (21:15)
--- NOTE | 2024-11-15 21:36 | DVHHP2 ---
History of Present Illness Reason for Visit: Rectal bleeding History of Present Illness The patient is a 79-year-old female with multiple past medical history including COPD, CHF, ESRD on dialysis, and TIA presented to [facility] ED with complaint of rectal bleeding. Patient reports he has been having rectal bleeding for the past two years, had about four cups of blood coming out of her rectum today, getting worse that prompted this visit. Patient reports multiple colonoscopy/endoscopy procedure last 2 years ago. Patient was seen and evaluated in the ED, laboratory data shows WBC 5.3, hemoglobin 7.5, hematocrit 23.1, platelets 291, sodium 134, potassium 4.3, BUN 32, creatinine 4.86, GFR 9, glucose 72, lipase 42, troponin 22. Abdomen/pelvis CT revealing colonic diverticulosis with minimal fat stranding adjacent to the sigmoid, correlate for mild sigmoid diverticulitis; mild gastric wall thickening which may be due to inadequate distention with gastritis not excluded. GI/nephrology followed the patient, please see medication orders section in the computer. On my assessment, patient denied chest pain, no headache, no dizziness, no shortness of breath, no abdominal pain, no diarrhea, no nausea, no vomiting, no fever, no chills. Patient was admitted for further evaluation and medical management. Past Medical History CHF, COPD, CVA, ESRD, High Lipids, HTN, TIA Past Surgical History Cholecystectomy, Tonsillectomy Family History Reviewed, noncontributory to the management of this case. Past Social History The patient lives at home, denies smoking, alcohol or illicit drugs abuse. Review of Systems Constitutional: Yes: Weakness; No: Fever, Chills, Sweats, Malaise, Other Eyes: No: Pain, Vision change, Conjunctivae inflammation, Eyelid inflammation, Other, Redness ENT: No: Ear pain, Ear discharge, Nose pain, Nose discharge, Nose congestion, Mouth pain, Mouth swelling, Throat pain, Throat swelling, Other Respiratory: No: Cough, Dry, Shortness of breath, SOB with excertion, Wheezing, Hemoptysis, Pleuritic Pain, Sputum, Wheezing, Other Cardiovascular: No: Chest Pain, Palpitations, Orthopnea, Paroxysmal Noc. Dyspn ea, Edema, Lt Headedness, Other Gastrointestinal: No: Nausea, Vomiting, Abdominal Pain, Diarrhea, Constipation, Melena, Hematochezia, Other Genitourinary: No Dysuria, No Frequency, No Incontinence, No Hematuria, No Retention, No Other Musculoskeletal: No: other, neck pain, shoulder pain, arm pain, back pain, hand pain, leg pain, foot pain Skin: No: Rash, Lesions, Jaundice, Bruising, Other Neurological: No: Weakness, Numbness, Incoordination, Change in speech, Confusion, Seizures, Other Allergies: Coded Allergies: Hydrocodone (Verified Allergy, Unknown, 05/17/18) Medications Current Medications Medications Dose Ordered Sig/Elias Route Start Time Stop Time Status Last Admin Dose Admin Pantoprazole Sodium 40 mg DAILY IV 11/16/24 10:00 UNV Metronidazole 100 ml @ 100 mls/hr Q8HR IV 11/15/24 22:00 UNV Sevelamer HCl 800 mg TIDWM PO 11/16/24 08:00 UNV Multivit/Ca Carb/ B Cmplx/FA/Prenat 1 tab DAILY PO 11/16/24 10:00 UNV Ceftriaxone Sodium 50 ml @ 100 mls/hr DAILY@09 IV 11/16/24 09:00 UNV Sodium Chloride 10 ml Q8HR IV 11/15/24 22:00 UNV Ondansetron HCl 4 mg Q4HP PRN IV 11/15/24 21:15 UNV Docusate Sodium 100 mg BIDPRN PRN PO 11/15/24 21:15 UNV Acetaminophen 650 mg Q6HP PRN PO 11/15/24 21:15 UNV Atorvastatin Calcium 20 mg HS PO 11/15/24 22:00 UNV Exam Vital Signs Vital Signs Date Time Temp Pulse Resp B/P (MAP) Pulse Ox O2 Delivery O2 Flow Rate FiO2 11/15/24 18:55 60 11/15/24 17:30 81.8 18 114/60 (78) 99 General Appearance: Alert, Oriented X3, Cooperative, No acute distress HEENT: Atraumatic, PERRLA, EOMI, Mucous membr. moist/pink Respiratory: Clear to auscultation, Normal air movement Cardiovascular: Regular rate, Normal S1, Normal S2, No murmurs Abdominal: Normal bowel sounds, Soft, No tenderness, No hepatospenomegaly, No masses Extremities: No clubbing, No cyanosis, No edema, Normal pulses, No tenderness/swelling Skin: No rashes, No breakdown, No significant lesion Neuro: Normal speech, Normal tone, Sensation intact, Cranial nerves 3-12 NL, Reflexes 2+, Other (Generalized weakness) Psych/Mental Status: Mental status NL, Mood NL Labs/Xrays Labs Test 11/15/24 20:00 11/15/24 18:44 Range/Units Troponin I High Sensitivity 23 </=34 ng/L White Blood Count 5.3 # 4.4-10.8 10^3/uL Red Blood Count 2.52 L 4.0-5.20 10^6/uL Hemoglobin 7.5 #L 12.2-16.2 g/dL Hematocrit 23.1 #L 36.0-46.0 % Mean Corpuscular Volume 91.6 80.0-100.0 fL Mean Corpuscular Hemoglobin 29.8 28.0-32.0 pg Mean Corpuscular Hemoglobin Concent 32.5 32.0-36.0 g/dL Red Cell Distribution Width 15.1 H 11.8-14.3 % Platelet Count 291 140-450 10^3/uL Mean Platelet Volume 7.2 6.9-10.8 fL Neutrophils (%) (Auto) 68.8 37.0-80.0 % Lymphocytes (%) (Auto) 17.6 10.0-50.0 % Monocytes (%) (Auto) 10.0 0.0-12.0 % Eosinophils (%) (Auto) 2.5 0.0-7.0 % Basophils (%) (Auto) 1.1 0.0-2.0 % Neutrophils # (Auto) 3.6 1.6-8.6 10 ^3/uL Lymphocytes # (Auto) 0.9 0.4-5.4 10 ^3/uL Monocytes # (Auto) 0.5 0-1.3 10 ^3/uL Eosinophils # (Auto) 0.1 0-0.8 10 ^3/uL Basophils # (Auto) 0.1 0-0.2 10 ^3/uL Nucleated Red Blood Cells 0.1 % Prothrombin Time 10.9 9.3-11.8 sec Prothrombin Time INR 1.03 0.9-1.15 Activated Partial Thromboplast Time 29.1 24.5-34.5 SEC Sodium Level 134 L 136-145 mmol/L Potassium Level 4.3 3.5-5.1 mmol/L Chloride Level 93 L 98-107 mmol/L Carbon Dioxide Level 32 H 20-31 mmol/L Anion Gap 9 5-15 Blood Urea Nitrogen 32 H 9-23 mg/dL Creatinine 4.86 H 0.550-1.02 mg/dL Glomerular Filtration Rate Calc 9 >90 mL/min BUN/Creatinine Ratio 6.6 L 10.0-20.0 Serum Glucose 72 L 74-106 mg/dL Lactic Acid Level 1.0 0.4-2.0 mmol/L Calcium Level 9.3 8.7-10.4 mg/dL Total Bilirubin 0.5 0.2-1.0 mg/dL Aspartate Amino Transferase (AST) 13 13-40 U/L Alanine Aminotransferase (ALT) 11 7-40 U/L Alkaline Phosphatase 99 46-116 U/L Total Protein 7.4 5.7-8.2 g/dL Albumin 3.6 3.2-4.8 g/dL Lipase 42 12-53 U/L PATIENT: HOMAR CASANOVA ACCT: [id number] UNIT: [id number] : 1945 LOC: ER ROOM / BED: / AGE / SEX: 79 / F ADM STATUS: REG ER SERVICE [id number] ORDERING PHYSICIAN: MISA WEBB DO PROCEDURE(s): ABPL - CT AB PEL WO CON-NO ORAL OR IV REASON: gi bleed ORDER NUMBER(s): [id number], ACCESSION NUMBER(s): [id number] Exam: CT CT AB PEL WO CON-NO ORAL OR IV History: gi bleed Comparison Study: 03/06/2023 report only TECHNIQUE: Multidetector CT of the abdomen and pelvis without contrast. Axial, coronal and sagittal multiplanar reformats were obtained from the axial data set by the technologist. Radiation Dose Information: CT Dose: CTDI volume is 18.42 mGy. Dose-length product is 857.86 mGy*cm FINDINGS: Mild bibasilarfibrotic changes/ pulmonary edema. Moderate cardiomegaly. Liver, spleen, pancreas and adrenal glands unremarkable. The gallbladder is not definitely visualized question cholecystectomy. There is moderate to severe atrophy of bilateral kidneys. Right renal upper pole cyst with 1 cm exophytic left renal lower pole soft tissue density lesion an additional Multiple small bilateral renal cysts. No hydronephrosis bilaterally. Bilateral ureters unremarkable. Urinary bladder is decompressed. Bulky appearance of the lower uterine segment / cervical region. Uterine vascular calcifications. Otherwise, uterus and adnexal are unremarkable. Small hiatal hernia. Mild gastric wall thickening. Small bowel loops unremarkable. There is swirling of the mesenteric vessels of the midabdomen without associated bowel obstruction. The small bowel loops are unremarkable. Appendix is unremarkable. Descending colon and sigmoid diverticulosis with minimal fat stranding adjacent to the sigmoid. Moderate amount of fecal material within the colon. No evidence of intraperitoneal free air or free fluid. Evidence of aortic aneurysm. [id number] atherosclerotic calcification of the aorta and bilateral iliacs. No significant lymphadenopathy. There are multiple periumbilical ventral abdominal small to moderate sized fat containing hernias. Small fat containing right inguinal hernia. Mild subcutaneous fat edema of the abdomen and pelvis. Foci of calcifications within the bilateral breast with Partially imaged breast tissue. No destructive osseous lesions noted. IMPRESSION: Colonic diverticulosis with minimal fat stranding adjacent to the sigmoid. Correlate for mild sigmoid diverticulitis. Mild gastric wall thickening which may be due to inadequate distention with gastritis not excluded. Additional findings as above. ORDERING PHYSICIAN: MISA WEBB DO PROCEDURE(s): CXRP - CHEST PORTABLE REASON: gi bleed ORDER NUMBER(s): [id number], ACCESSION NUMBER(s): [id number] EXAM: XR Chest, 1 View CLINICAL INDICATION: gi bleed TECHNIQUE: Frontal view of the chest. COMPARISON: XY CHEST PORTABLE on DOS: 11/09/24, XY CHEST PORTABLE on DOS: 05/17/24, CHEST PORTABLE on DOS: 06/09/20, CHEST PORTABLE on DOS: 06/08/20, CHEST XRAY 1 VIEW on DOS: 07/29/19 FINDINGS: LUNGS AND PLEURAL SPACES: See below. HEART: Cardiomegaly with mild congestion. MEDIASTINUM: Unremarkable. Normal mediastinal contour. BONES/JOINTS: Unremarkable. No acute fracture. IMPRESSION: Cardiomegaly with mild congestion. Assessment/Plan Assessment/Plan Rectal bleeding Anemia, unspecified Generalized weakness Sigmoid diverticulitis End-stage renal disease on hemodialysis Plan 1. Admit to telemetry unit 2. Breathing treatment 3. Pain control management 4. IV antibiotic management 5. Management of fluids and electrolytes 6. Consultation for GI/nephrology 7. Diagnostic test abdomen/pelvis CT 8. DVT prophylaxis on SCDs 9. Repeat labs CBC, CMP in a.m. 10. Home medication reviewed and reconciled 11. Continue with current medical management 12. Treatment plan discussed with patient and RN. Patient verbalized understanding. Plan discussed with: Patient, Other (RN) My Orders Orders - MADIHA STEWART DNP Procedure Category Date Status Time Pantoprazole PHA 11/16/24 Logged (Protonix) 10:00 Metronidazole PHA 11/15/24 Logged 500mg/100ml (Flagyl 22:00 Sevelamer (Renagel) PHA 11/16/24 Logged 08:00 B-Complex W/ C & PHA 11/16/24 Logged Folic Tablet 10:00 Ceftriaxone 1gm/50ml PHA 11/16/24 Logged D5w (Rocephin) 09:00 Ceftriaxone 1gm/50ml PHA 11/15/24 Logged D5w (Rocephin) 21:15 Type And Screen BBK 11/15/24 Logged 21:06 *[facility] CONS 11/15/24 Transmitted -[place] 21:06 Allergies ANTON 11/15/24 In Process 21:06 Code Status CODE 11/15/24 Transmitted 21:06 Sodium Chloride Lock PHA 11/15/24 Logged (Saline Lock Ns) 22:00 Oxygen Per Hour RT 11/15/24 Transmitted 21:06 Ondansetron Hcl PHA 11/15/24 Logged (Zofran) 21:15 Docusate Sodium PHA 11/15/24 Logged Capsule (Colace 21:15 Complete Blood Count LAB 11/16/24 Verified 04:00 Comprehensive LAB 11/16/24 Verified Metabolic Panel 04:00 Condition: Serious ANTON 11/15/24 In Process 21:06 Acetaminophen Tablet PHA 11/15/24 Logged (Tylenol Tablet) 21:15 Clear Liq Diet DIET 11/16/24 Transmitted Breakfast Bedrest With Bathroom ANTON 11/15/24 In Process Privileg 21:06 Sequential ANTON 11/15/24 In Process Compression Device B-Type Natriuretic LAB 11/15/24 Logged Peptide 21:06 Atorvastatin (Lipitor) PHA 11/15/24 Logged 22:00 Problem List: (1) Rectal bleeding (2) Anemia, unspecified (3) Sigmoid diverticulitis (4) Generalized weakness (5) End stage renal disease on dialysis Date of Service: Nov 15, 2024 Billing Provider: MADIHA STEWART DNP Common Visit Codes: [id number] INP/OBS CARE (HIGH) MADIHA STEWART DNP Nov 15, 2024 21:36
[2024-11-15] MEDS ORDERED: MORPHINE SULFATE INJ 2 MG/ml SYRG IV PRN (21:45)
[2024-11-15] MEDS ORDERED: NITROGLYCERIN 0.4 MG SL TAB SL PRN (21:45)
[2024-11-15] MEDS: ATORVASTATIN 20 MG TAB PO SCH (22:00)
[2024-11-16] VITALS (10 sets, daily range): BP systolic 90–138; BP diastolic 39–72; PULSE 56–78; RESP 16–18; TEMP 97.4–97.8; O2SAT 90–99
[2024-11-16] MEDS: SODIUM CHLOR 0.9% PF (SALINE LOCK) 10ML VIAL/SYR IV SCH (02:23)
[2024-11-16] MEDS: PANTOPRAZOLE 40 MG/10 ML VIAL INJ IV ONE (02:27)
[2024-11-16] MEDS: cefTRIAXone 1GM/50ML D5W 50 ML IV ONE (02:27)
[2024-11-16] MEDS: metroNIDAZOLE 500MG/100ML 100 ML IV SCH (05:49)
[2024-11-16 07:18] LABS: Basophils # (auto) 0.1 10 ^3/uL (0-0.2); Eosinophils # (auto) 0.1 10 ^3/uL (0-0.8); Hemoglobin 7.3 g/dL (12.2-16.2); Lymphocytes # (auto) 0.9 10 ^3/uL (0.4-5.4); Mean Corpuscular Hgb Conc. 33.5 g/dL (32.0-36.0); Neutrophils # (auto) 3.5 10 ^3/uL (1.6-8.6); Nucleated Red Blood Cells % 0.1 %; White Blood Cell 5.2 10^3/uL (4.4-10.8)
[2024-11-16 07:20] LABS: Basophils % (auto) 1.3 % (0.0-2.0); Eosinophils % (auto) 2.8 % (0.0-7.0); Hematocrit 21.9 % (36.0-46.0); Lymphocytes % (auto) 17.7 % (10.0-50.0); Mean Corpuscular Hemoglobin 31.7 pg (28.0-32.0); Mean Corpuscular Volume 94.6 fL (80.0-100.0); Monocytes # (auto) 0.5 10 ^3/uL (0-1.3); Monocytes % (auto) 10.3 % (0.0-12.0); Neutrophils % (auto) 67.9 % (37.0-80.0); Platelet Count (auto) 278 10^3/uL (140-450); Red Blood Cells 2.32 10^6/uL (4.0-5.20); Red Cell Distribution Width 14.9 % (11.8-14.3)
[2024-11-16 07:27] LABS: Albumin 3.4 g/dL (3.2-4.8); Alkaline Phosphatase 93 U/L (46-116); Anion Gap 11 (5-15); BUN/Creatinine Ratio 6.2 (10.0-20.0); Bilirubin, Total 0.4 mg/dL (0.2-1.0); Calcium 9.7 mg/dL (8.7-10.4); Carbon Dioxide 31 mmol/L (20-31); Potassium 4.5 mmol/L (3.5-5.1); Total Protein 7.3 g/dL (5.7-8.2)
[2024-11-16 07:34] LABS: Alanine Aminotransferase 9 U/L (7-40); Aspartate Aminotransferase 12 U/L (13-40); Blood Urea Nitrogen 35 mg/dL (9-23); Chloride 93 mmol/L (98-107); Glucose 65 mg/dL (74-106); Sodium 135 mmol/L (136-145)
[2024-11-16] MEDS: SEVELAMER 800 MG TAB PO SCH (08:00)
[2024-11-16] MEDS: cefTRIAXone 1GM/50ML D5W 50 ML IV SCH (09:29)
[2024-11-16] MEDS: PANTOPRAZOLE 40 MG/10 ML VIAL INJ IV SCH (09:34)
[2024-11-16] MEDS: B-COMPLEX W/ C & FOLIC ACID(NEPHROVITE TAB) PO SCH (09:39)
--- NOTE | 2024-11-16 09:45 | DVHCONRES ---
Date Seen: Nov 16, 2024 Resident Creating Document: ASHLEIGH GRAVES RESIDENT History of Present Illness Francie Go is a 79-year-old female with past medical history of hypertension, hyperlipidemia, COPD, CHF, end-stage renal disease on HD (M/W/F), TIA, CVA x2 with no deficits, cholecystectomy, tonsillectomy, and right shoulder fracture 1 year ago who presents to the ED with melena. Patient reports that she explosive loose watery tarry black BM 2/3 after she had HD session. She has had 2 such episodes yesterday. Reports unintentional weight loss 70 lb in the past 2 years. Recently admitted here for similar reasons, EGD completed 11/10, biopsy shows mild chronic inactive gastritis. No H pylori. No intestinal metaplasia/dysplasia or malignancy. She was advised GI workup including outpatient capsule endoscopy on discharge. She has had multiple colonoscopies in the past. Patient is seen and examined at the bedside. Hemoglobin dropped to 7.3 from 8.9 on 11/12. Colonoscopy tomorrow. Family History: Arthritis MOTHER Diabetes mellitus FH: CHF (congestive heart failure) FATHER FH: epilepsy GRANDMOTHER FH: heart attack BORTHER SISTER FH: heart disease FH: lung disease Hypertension Allergies: Coded Allergies: Hydrocodone (Verified Allergy, Unknown, 05/17/18) Home Meds Active Scripts Sucralfate (CARAFATE SUSP) 1 Gm/10 Ml Ss, 1 GM PO BID@0600,2200, #120 ML 5 Refills Prov:SHIRLEY QUINTERO MD 11/12/24 Pantoprazole Sodium Sesquihydr (Pantoprazole Sodium) 40 Mg Tab, 40 MG PO DAILY@0600, #30 TAB 5 Refills Prov:SHIRLEY QUINTERO MD 11/12/24 Reported Medications Sevelamer Carbonate (Renvela) 800 Mg Tab, 2 TAB PO TID 05/18/24 Midodrine Hcl (Midodrine Hcl) 5 Mg Tab, 1 TAB PO BID PRN for DIZZINESS 05/18/24 Calcium Acetate (PHOSLO CAPSULE) 667 Mg Cp, 4 CAP PO TID, #180 CAP 5 Refills 01/01/18 B Complex W/ C (B COMPLEX/VITAMIN C) Vit C Cap, 1 C PO DAILY, CAP 12/30/17 Amiodarone Hcl (Amiodarone Hcl) 200 Mg Tab, 200 MG PO DAILY for 30 Days 12/30/17 Atorvastatin Calcium (Lipitor) 20 Mg Tab, 1 TAB PO HS, #90 TAB 1 Refill 12/30/17 Current Medications Current Medications Medications (Trade) Dose Ordered Sig/Elias Route PRN Reason Start Time Stop Time Status Last Admin Pantoprazole Sodium (Protonix) 40 mg DAILY IV 11/16/24 10:00 11/16/24 09:34 Metronidazole 100 ml @ 100 mls/hr Q8HR IV 11/15/24 22:00 11/16/24 05:49 Sevelamer HCl (Renagel) 800 mg TIDWM PO 11/16/24 08:00 Multivit/Ca Carb/ B Cmplx/FA/Prenat (Nephro-Miladys Tablet) 1 tab DAILY PO 11/16/24 10:00 11/16/24 09:39 Ceftriaxone Sodium 50 ml @ 100 mls/hr DAILY@09 IV 11/16/24 09:00 11/16/24 09:29 Sodium Chloride (Saline Lock Ns) 10 ml Q8HR IV 11/15/24 22:00 11/16/24 05:49 Ondansetron HCl (Zofran) 4 mg Q4HP PRN IV NAUSEA / VOMITING 11/15/24 21:15 Docusate Sodium (Colace Capsule) 100 mg BIDPRN PRN PO FOR CONSTIPATION 11/15/24 21:15 Acetaminophen (Tylenol Tablet) 650 mg Q6HP PRN PO PAIN SCALE 1-3 OR TEMP>100.4 11/15/24 21:15 Atorvastatin Calcium (Lipitor) 20 mg HS PO 11/15/24 22:00 Nitroglycerin (Ntrostat Sublingual) 0.4 mg Q5MINP PRN SL FOR CHEST PAIN 11/15/24 21:45 Morphine Sulfate 2 mg Q30M PRN IV FOR CHEST PAIN 11/15/24 21:45 Vital Signs Vital Signs Date Time Temp Pulse Resp B/P (MAP) Pulse Ox O2 Delivery O2 Flow Rate FiO2 11/16/24 09:00 97.5 63 17 100/39 (59) 99 97.5 11/16/24 03:50 Nasal Cannula* 2 28 Physical Exam Elderly female patient lying in bed, in no acute distress General: Overweight, afebrile, palor, mucosae are moist Cardiovascular: Regular S1 and S2. Systolic ejection murmur. No gallops or rubs. No JVD elevation. No pedal edema Respiratory: Normal B/L air entry on room air. Clear lung sounds on auscultation Abdomen: Soft, nontender, nondistended, normoactive bowel sounds, no rebound tenderness, no organomegaly, no masses Genitourinary: Deferred MSK/skin: Mobilizes 4 limbs. Skin is dry and warm Neurological: No motor, no sensitive deficits, normal speech. Pupils are isocoric and reactive. Psych/Mental Status: A/Ox3 Labs/Diagnostic Data Labs Test 11/16/24 05:02 11/15/24 22:20 11/15/24 21:45 11/15/24 18:44 Range/Units White Blood Count 5.2 4.4-10.8 10^3/uL Red Blood Count 2.32 L 4.0-5.20 10^6/uL Hemoglobin 7.3 L 12.2-16.2 g/dL Hematocrit 21.9 L 36.0-46.0 % Mean Corpuscular Volume 94.6 80.0-100.0 fL Mean Corpuscular Hemoglobin 31.7 28.0-32.0 pg Mean Corpuscular Hemoglobin Concent 33.5 32.0-36.0 g/dL Red Cell Distribution Width 14.9 H 11.8-14.3 % Platelet Count 278 140-450 10^3/uL Mean Platelet Volume 7.5 6.9-10.8 fL Neutrophils (%) (Auto) 67.9 37.0-80.0 % Lymphocytes (%) (Auto) 17.7 10.0-50.0 % Monocytes (%) (Auto) 10.3 0.0-12.0 % Eosinophils (%) (Auto) 2.8 0.0-7.0 % Basophils (%) (Auto) 1.3 0.0-2.0 % Neutrophils # (Auto) 3.5 1.6-8.6 10 ^3/uL Lymphocytes # (Auto) 0.9 0.4-5.4 10 ^3/uL Monocytes # (Auto) 0.5 0-1.3 10 ^3/uL Eosinophils # (Auto) 0.1 0-0.8 10 ^3/uL Basophils # (Auto) 0.1 0-0.2 10 ^3/uL Nucleated Red Blood Cells 0.1 % Sodium Level 135 L 136-145 mmol/L Potassium Level 4.5 3.5-5.1 mmol/L Chloride Level 93 L 98-107 mmol/L Carbon Dioxide Level 31 20-31 mmol/L Anion Gap 11 5-15 Blood Urea Nitrogen 35 H 9-23 mg/dL Creatinine 5.61 H 0.550-1.02 mg/dL Glomerular Filtration Rate Calc 7 >90 mL/min BUN/Creatinine Ratio 6.2 L 10.0-20.0 Serum Glucose 65 L 74-106 mg/dL Calcium Level 9.7 8.7-10.4 mg/dL Total Bilirubin 0.4 0.2-1.0 mg/dL Aspartate Amino Transferase (AST) 12 L 13-40 U/L Alanine Aminotransferase (ALT) 9 7-40 U/L Alkaline Phosphatase 93 46-116 U/L Total Protein 7.3 5.7-8.2 g/dL Albumin 3.4 3.2-4.8 g/dL B-Type Natriuretic Peptide 739.01 0-100 pg/mL Troponin I High Sensitivity 22 </=34 ng/L Prothrombin Time 10.9 9.3-11.8 sec Prothrombin Time INR 1.03 0.9-1.15 Activated Partial Thromboplast Time 29.1 24.5-34.5 SEC Lactic Acid Level 1.0 0.4-2.0 mmol/L Lipase 42 12-53 U/L Assessment Probable lower GI versus small bowel bleeding ? Angiodysplasias ?Heyde syndrome Microcytic anemia secondary to above Mild sigmoid diverticulitis 2 cm hiatal hernia ESRD on hemodialysis Systolic CHF-EF 25-30% [id number] Unintentional weight loss 70 lb in 2 years Biopsy from EGD showed mild chronic inactive gastritis. No H pylori no metaplasia/dysplasia/malignancy. Plan Given the acute anemia, patient will be scheduled for colonoscopy 11/17. Clear liquid diet for now. Ordered bowel prep. We will consider CT angio if the patient is bleeding acutely Patient will need Elective capsule endoscopy if the colonoscopy is negative Continue ceftriaxone and metronidazole Continue Protonix IV daily Plan discussed with patient in which all questions have been answered Case discussed with Dr. Costa. Plan/Recommendation Recently admitted here for similar reasons, EGD completed 11/10, biopsy shows mild chronic inactive gastritis. No H pylori. No intestinal metaplasia/dysplasia or malignancy. She was advised GI workup including outpatient capsule endoscopy on discharge. She has had multiple colonoscopies in the past. Plan: Patient has probably bleeding from small-bowel angiodysplasia. Consider CT angiography/angiography/enteroscopy to rule out angiodysplasia. Outpatient capsule endoscopy Plan discussed with patient in which all questions have been answered Case discussed with Dr. Costa Plan discussed with: Patient ASHLEIGH GRAVES RESIDENT Nov 16, 2024 09:45
--- NOTE | 2024-11-16 12:13 | DVHPN2 ---
Progress Note Date Seen: Nov 16, 2024 Medical Necessity Reason Pt with a Central, PICC or Fol: No Subjective Patient reports: No new complaints Review of Systems: HEENT:Normal, CVS:Normal, RESPIRATORY:Normal, GI:Normal, :Normal, MSK:Normal, NEURO:Normal Objective vital signs Vital Sign Date Time Temp Pulse Resp B/P (MAP) Pulse Ox O2 Delivery O2 Flow Rate FiO2 11/16/24 09:00 97.5 63 17 100/39 (59) 99 97.5 11/16/24 08:00 Room Air* 0 21 Total Intake and Output 11/15/24 11/15/24 11/16/24 15:00 23:00 07:00 Intake Total 100 ml Balance 100 ml medications Current Medications Medications Dose Ordered Sig/Elias Route Start Time Stop Time Status Last Admin Dose Admin Pantoprazole Sodium 40 mg DAILY IV 11/16/24 10:00 11/16/24 09:34 40 MG Metronidazole 100 ml @ 100 mls/hr Q8HR IV 11/15/24 22:00 11/16/24 05:49 100 MLS/HR Sevelamer HCl 800 mg TIDWM PO 11/16/24 08:00 Multivit/Ca Carb/ B Cmplx/FA/Prenat 1 tab DAILY PO 11/16/24 10:00 11/16/24 09:39 1 TAB Ceftriaxone Sodium 50 ml @ 100 mls/hr DAILY@09 IV 11/16/24 09:00 11/16/24 09:29 100 MLS/HR Sodium Chloride 10 ml Q8HR IV 11/15/24 22:00 11/16/24 05:49 10 ML Ondansetron HCl 4 mg Q4HP PRN IV 11/15/24 21:15 Docusate Sodium 100 mg BIDPRN PRN PO 11/15/24 21:15 Acetaminophen 650 mg Q6HP PRN PO 11/15/24 21:15 Atorvastatin Calcium 20 mg HS PO 11/15/24 22:00 Nitroglycerin 0.4 mg Q5MINP PRN SL 11/15/24 21:45 Morphine Sulfate 2 mg Q30M PRN IV 11/15/24 21:45 Examination: GENERAL:Normal, HEENT:Normal, NECK:Normal, LUNGS:Normal, LUNGS:Abnormal (on oxygen), CVS:Normal, ABDOMEN:Normal, MSK:Normal, SKIN:Normal, NEURO:Normal, :Normal laboratory and microbiology Laboratory Tests 11/16/24 05:02 Test 11/16/24 05:02 Range/Units Serum Glucose 65 L 74-106 mg/dL Problem List/Assessment/Plan Problem List/Assessment/Plan #1 chronic resp failure #2 esrd: on dialysis, plan in am #3 acute on chronic systolic heart failure #4 copd #5 h/o cva #6 gi bleed: s/p recent egd, gi eval #7 anemia advance care planning- full code time spent 19 mins Plan discussed with: Patient My Orders My Orders Orders - NALDO GONZALEZ MD Procedure Category Date Status Time Basic Metabolic Panel LAB 11/17/24 Verified 06:00 Complete Blood Count LAB 11/17/24 Verified 06:00 Date of Service: Nov 16, 2024 Billing Provider: NALDO GONZALEZ MD Common Visit Codes: [id number] INP/OBS CARE(HIGH) Secondary Visit Codes: [id number] CARE PLAN 30 MINUTES NALDO GONZALEZ MD Nov 16, 2024 12:13
--- NOTE | 2024-11-16 12:57 | ECG ---
[facility] Test Date: 2024-11-15 Test Time: 18:55:38 Pat Name: HOMAR CASANOVA [facility] Gender: F Bedspread Inspector: JAMES : 1945 Requested By: MISA WEBB Order Number: [id number] Reading MD: Christopher Rivera Measurements Intervals [place] Rate: 60 P: 24 OH: 223 QRS: -52 QRSD: 151 T: 116 QT: 528 QTc: 528 Interpretive Statements Sinus rhythm Prolonged OH interval Probable left atrial enlargement Left bundle branch block Baseline wander in lead(s) V1 Electronically Signed On 11-16-2024 17:49:14 PST by Christopher Rivera Please click the below link to view image of tracing.
[2024-11-16] MEDS ORDERED: SODIUM CHL 0.9% 1000 ML BAG XX ONE (15:00)
[2024-11-16] MEDS: ACETAMINOPHEN 325 MG TAB PO PRN (15:23)
--- NOTE | 2024-11-16 15:49 | DVHINCON2 ---
Date of service: Nov 16, [address] Petey Centeno Reason for Consultation Dialysis History of Present Illness 79 Y/O F with history of ESRD on HD via left thigh AVG, COPD, HTN,CVA, tonsillectomy and cholecystectomy presented with rectal bleeding. K: 4.3, and Hb: 7.5 g/dl. Ct A/P shows mild sigmoid diverticulitis. Nephrology consulted for maintenance of dialysis. Past Medical History ESRD,COPD, CHF, CVA, HTN, Gastritis Past Surgical History Tonsillectomy, Cholecystomy, AVF creation Allergies: Coded Allergies: Hydrocodone (Verified Allergy, Unknown, 05/17/18) Home Meds Active Scripts Sucralfate (CARAFATE SUSP) 1 Gm/10 Ml Ss, 1 GM PO BID@0600,2200, #120 ML 5 Refills Prov:SHIRLEY QUINTERO MD 11/12/24 Pantoprazole Sodium Sesquihydr (Pantoprazole Sodium) 40 Mg Tab, 40 MG PO DAILY@0600, #30 TAB 5 Refills Prov:SHIRLEY QUINTERO MD 11/12/24 Reported Medications Sevelamer Carbonate (Renvela) 800 Mg Tab, 2 TAB PO TID 05/18/24 Midodrine Hcl (Midodrine Hcl) 5 Mg Tab, 1 TAB PO BID PRN for DIZZINESS 05/18/24 Calcium Acetate (PHOSLO CAPSULE) 667 Mg Cp, 4 CAP PO TID, #180 CAP 5 Refills 01/01/18 B Complex W/ C (B COMPLEX/VITAMIN C) Vit C Cap, 1 C PO DAILY, CAP 12/30/17 Amiodarone Hcl (Amiodarone Hcl) 200 Mg Tab, 200 MG PO DAILY for 30 Days 12/30/17 Atorvastatin Calcium (Lipitor) 20 Mg Tab, 1 TAB PO HS, #90 TAB 1 Refill 12/30/17 Current Medications Current Medications Medications (Trade) Dose Ordered Sig/Elias Route PRN Reason Start Time Stop Time Status Last Admin Pantoprazole Sodium (Protonix) 40 mg DAILY IV 11/16/24 10:00 11/16/24 09:34 Metronidazole 100 ml @ 100 mls/hr Q8HR IV 11/15/24 22:00 11/16/24 13:48 Sevelamer HCl (Renagel) 800 mg TIDWM PO 11/16/24 08:00 Multivit/Ca Carb/ B Cmplx/FA/Prenat (Nephro-Miladys Tablet) 1 tab DAILY PO 11/16/24 10:00 11/16/24 09:39 Ceftriaxone Sodium 50 ml @ 100 mls/hr DAILY@09 IV 11/16/24 09:00 11/16/24 09:29 Sodium Chloride (Saline Lock Ns) 10 ml Q8HR IV 11/15/24 22:00 11/16/24 14:15 Ondansetron HCl (Zofran) 4 mg Q4HP PRN IV NAUSEA / VOMITING 11/15/24 21:15 Docusate Sodium (Colace Capsule) 100 mg BIDPRN PRN PO FOR CONSTIPATION 11/15/24 21:15 Acetaminophen (Tylenol Tablet) 650 mg Q6HP PRN PO PAIN SCALE 1-3 OR TEMP>100.4 11/15/24 21:15 11/16/24 15:23 Atorvastatin Calcium (Lipitor) 20 mg HS PO 11/15/24 22:00 Nitroglycerin (Ntrostat Sublingual) 0.4 mg Q5MINP PRN SL FOR CHEST PAIN 11/15/24 21:45 Morphine Sulfate 2 mg Q30M PRN IV FOR CHEST PAIN 11/15/24 21:45 Family History: Arthritis MOTHER Diabetes mellitus FH: CHF (congestive heart failure) FATHER FH: epilepsy GRANDMOTHER FH: heart attack BORTHER SISTER FH: heart disease FH: lung disease Hypertension Review of Systems as per HPI, all other systems were reviewed and are negative. H&P Exam Vital Signs/I&O Vital Sign Date Time Temp Pulse Resp B/P (MAP) Pulse Ox O2 Delivery O2 Flow Rate FiO2 11/16/24 13:00 97.7 63 17 114/47 (69) 96 97.7 11/16/24 08:00 Room Air* 0 21 Intake and Output 0 11/15/24 11/16/24 19:00 07:00 Intake Total 100 ml Balance 100 ml Intake Oral 0 ml IV Total 100 ml Physical Exam Gen: NAD HEENT: NC,AT Lungs: CTA b/l Cardiac: RRR, no murmur Abd: soft, no tenderness Ext: no edema + left thigh AVG Labs/Diagnostic Data Labs/Diagnostic Data Laboratory Tests Test 11/16/24 05:02 11/15/24 22:20 11/15/24 21:45 11/15/24 20:00 Range/Units White Blood Count 5.2 4.4-10.8 10^3/uL Red Blood Count 2.32 L 4.0-5.20 10^6/uL Hemoglobin 7.3 L 12.2-16.2 g/dL Hematocrit 21.9 L 36.0-46.0 % Mean Corpuscular Volume 94.6 80.0-100.0 fL Mean Corpuscular Hemoglobin 31.7 28.0-32.0 pg Mean Corpuscular Hemoglobin Concent 33.5 32.0-36.0 g/dL Red Cell Distribution Width 14.9 H 11.8-14.3 % Platelet Count 278 140-450 10^3/uL Mean Platelet Volume 7.5 6.9-10.8 fL Neutrophils (%) (Auto) 67.9 37.0-80.0 % Lymphocytes (%) (Auto) 17.7 10.0-50.0 % Monocytes (%) (Auto) 10.3 0.0-12.0 % Eosinophils (%) (Auto) 2.8 0.0-7.0 % Basophils (%) (Auto) 1.3 0.0-2.0 % Neutrophils # (Auto) 3.5 1.6-8.6 10 ^3/uL Lymphocytes # (Auto) 0.9 0.4-5.4 10 ^3/uL Monocytes # (Auto) 0.5 0-1.3 10 ^3/uL Eosinophils # (Auto) 0.1 0-0.8 10 ^3/uL Basophils # (Auto) 0.1 0-0.2 10 ^3/uL Nucleated Red Blood Cells 0.1 % Sodium Level 135 L 136-145 mmol/L Potassium Level 4.5 3.5-5.1 mmol/L Chloride Level 93 L 98-107 mmol/L Carbon Dioxide Level 31 20-31 mmol/L Anion Gap 11 5-15 Blood Urea Nitrogen 35 H 9-23 mg/dL Creatinine 5.61 H 0.550-1.02 mg/dL Glomerular Filtration Rate Calc 7 >90 mL/min BUN/Creatinine Ratio 6.2 L 10.0-20.0 Serum Glucose 65 L 74-106 mg/dL Calcium Level 9.7 8.7-10.4 mg/dL Total Bilirubin 0.4 0.2-1.0 mg/dL Aspartate Amino Transferase (AST) 12 L 13-40 U/L Alanine Aminotransferase (ALT) 9 7-40 U/L Alkaline Phosphatase 93 46-116 U/L Total Protein 7.3 5.7-8.2 g/dL Albumin 3.4 3.2-4.8 g/dL B-Type Natriuretic Peptide 739.01 0-100 pg/mL Troponin I High Sensitivity 22 23 </=34 ng/L Test 11/15/24 18:44 Range/Units White Blood Count 5.3 # 4.4-10.8 10^3/uL Red Blood Count 2.52 L 4.0-5.20 10^6/uL Hemoglobin 7.5 #L 12.2-16.2 g/dL Hematocrit 23.1 #L 36.0-46.0 % Mean Corpuscular Volume 91.6 80.0-100.0 fL Mean Corpuscular Hemoglobin 29.8 28.0-32.0 pg Mean Corpuscular Hemoglobin Concent 32.5 32.0-36.0 g/dL Red Cell Distribution Width 15.1 H 11.8-14.3 % Platelet Count 291 140-450 10^3/uL Mean Platelet Volume 7.2 6.9-10.8 fL Neutrophils (%) (Auto) 68.8 37.0-80.0 % Lymphocytes (%) (Auto) 17.6 10.0-50.0 % Monocytes (%) (Auto) 10.0 0.0-12.0 % Eosinophils (%) (Auto) 2.5 0.0-7.0 % Basophils (%) (Auto) 1.1 0.0-2.0 % Neutrophils # (Auto) 3.6 1.6-8.6 10 ^3/uL Lymphocytes # (Auto) 0.9 0.4-5.4 10 ^3/uL Monocytes # (Auto) 0.5 0-1.3 10 ^3/uL Eosinophils # (Auto) 0.1 0-0.8 10 ^3/uL Basophils # (Auto) 0.1 0-0.2 10 ^3/uL Nucleated Red Blood Cells 0.1 % Prothrombin Time 10.9 9.3-11.8 sec Prothrombin Time INR 1.03 0.9-1.15 Activated Partial Thromboplast Time 29.1 24.5-34.5 SEC Sodium Level 134 L 136-145 mmol/L Potassium Level 4.3 3.5-5.1 mmol/L Chloride Level 93 L 98-107 mmol/L Carbon Dioxide Level 32 H 20-31 mmol/L Anion Gap 9 5-15 Blood Urea Nitrogen 32 H 9-23 mg/dL Creatinine 4.86 H 0.550-1.02 mg/dL Glomerular Filtration Rate Calc 9 >90 mL/min BUN/Creatinine Ratio 6.6 L 10.0-20.0 Serum Glucose 72 L 74-106 mg/dL Lactic Acid Level 1.0 0.4-2.0 mmol/L Calcium Level 9.3 8.7-10.4 mg/dL Total Bilirubin 0.5 0.2-1.0 mg/dL Aspartate Amino Transferase (AST) 13 13-40 U/L Alanine Aminotransferase (ALT) 11 7-40 U/L Alkaline Phosphatase 99 46-116 U/L Troponin I High Sensitivity 22 </=34 ng/L Total Protein 7.4 5.7-8.2 g/dL Albumin 3.6 3.2-4.8 g/dL Lipase 42 12-53 U/L Microbiology Date/Time Source Procedure Growth Status 11/16/24 06:35 Nose MRSA Screen - Final Complete Assessment Assessment: ESRD on HD via left thigh AVG Acute on chronic anemia sigmoid diverticulitis Hyperphosphatemia Secondary hyperparathyroidism Metabolic acidosis Azotemia COPD HTN h/o CVA Plan: HD today. 3h, 2L UF seen during dialysis. tolerating well plan for colonoscopy tomorrow [facility] post HD GI consult monitor H&H Transfuse if Hb < 7 g/dl Plan discussed with: Patient JACKIE DUMONT MD Nov 16, 2024 15:49
[2024-11-16] MEDS: MAGNESIUM CITRATE SOLUTION 300 ML BTL PO ONE (17:26)
[2024-11-16] MEDS: GOLYTELY 4L KIT PO ONE (17:26)
[2024-11-16] MEDS: EPOETIN ALFA-EPBX 10,000 UNIT/1ML VIAL SC ONE (21:19)
[2024-11-17] VITALS (10 sets, daily range): BP systolic 124–136; BP diastolic 42–61; PULSE 61–68; RESP 13–19; TEMP 97.6–98.6; O2SAT 93–100
[2024-11-17] MEDS: MAGNESIUM CITRATE SOLUTION 300 ML BTL PO ONE (05:33)
[2024-11-17] MEDS: GOLYTELY 4L KIT PO ONE (05:37)
[2024-11-17 06:41] LABS: Basophils # (auto) 0.1 10 ^3/uL (0-0.2); Basophils % (auto) 1.4 % (0.0-2.0); Eosinophils # (auto) 0.2 10 ^3/uL (0-0.8); Eosinophils % (auto) 2.4 % (0.0-7.0); Hematocrit 26.4 % (36.0-46.0); Hemoglobin 8.8 g/dL (12.2-16.2); Lymphocytes # (auto) 1.3 10 ^3/uL (0.4-5.4); Lymphocytes % (auto) 20.3 % (10.0-50.0); Mean Corpuscular Hemoglobin 30.7 pg (28.0-32.0); Mean Corpuscular Hgb Conc. 33.2 g/dL (32.0-36.0); Mean Corpuscular Volume 92.3 fL (80.0-100.0); Monocytes # (auto) 0.8 10 ^3/uL (0-1.3); Monocytes % (auto) 11.9 % (0.0-12.0); Neutrophils # (auto) 4.1 10 ^3/uL (1.6-8.6); Nucleated Red Blood Cells % 0.2 %; Platelet Count (auto) 318 10^3/uL (140-450); Potassium 3.8 mmol/L (3.5-5.1); Red Blood Cells 2.85 10^6/uL (4.0-5.20); Red Cell Distribution Width 15.1 % (11.8-14.3); White Blood Cell 6.5 10^3/uL (4.4-10.8)
[2024-11-17 06:42] LABS: Anion Gap 11 (5-15); Carbon Dioxide 29 mmol/L (20-31)
[2024-11-17 06:47] LABS: BUN/Creatinine Ratio 3.9 (10.0-20.0); Blood Urea Nitrogen 16 mg/dL (9-23)
[2024-11-17 06:52] LABS: Calcium 10.7 mg/dL (8.7-10.4); Chloride 95 mmol/L (98-107); Glucose 67 mg/dL (74-106); Sodium 135 mmol/L (136-145)
[2024-11-17] MEDS ORDERED: diphenhdrAMINE HCL 50 MG/1 ML VL ONE (09:43)
[2024-11-17] MEDS ORDERED: SODIUM CHLORIDE LOCK 10 ML ONE (09:43)
[2024-11-17] MEDS ORDERED: MIDAZOLAM HCL 5 MG/ML-1ML VIAL ONE (09:43)
[2024-11-17] MEDS ORDERED: FLUMAZENIL 0.1 MG/ML INJ 10ML MDV IV ONE (09:43)
[2024-11-17] MEDS ORDERED: NALOXONE HCL 0.4 MG/ML VIAL ONE (09:43)
[2024-11-17] MEDS ORDERED: fentaNYL CITRATE 100 MCG/2 ML VL ONE ×2 (09:44→13:01)
--- NOTE | 2024-11-17 11:48 | DVHPN2 ---
Progress Note Date Seen: Nov 17, 2024 Medical Necessity Reason Pt with a Central, PICC or Fol: No Subjective Patient reports: No new complaints Review of Systems: HEENT:Normal, CVS:Normal, RESPIRATORY:Normal, GI:Normal, :Normal, MSK:Normal, NEURO:Normal Objective vital signs Vital Sign Date Time Temp Pulse Resp B/P (MAP) Pulse Ox O2 Delivery O2 Flow Rate FiO2 11/17/24 08:37 98.6 61 18 133/49 (77) 100 98.6 11/17/24 07:40 Room Air* 0 21 Total Intake and Output 11/16/24 11/16/24 11/17/24 15:00 23:00 07:00 Intake Total 336 ml 100 ml Output Total 400 ml Balance -64 ml 100 ml medications Current Medications Medications Dose Ordered Sig/Elias Route Start Time Stop Time Status Last Admin Dose Admin Pantoprazole Sodium 40 mg DAILY IV 11/16/24 10:00 11/17/24 09:44 40 MG Metronidazole 100 ml @ 100 mls/hr Q8HR IV 11/15/24 22:00 11/17/24 05:33 100 MLS/HR Sevelamer HCl 800 mg TIDWM PO 11/16/24 08:00 Multivit/Ca Carb/ B Cmplx/FA/Prenat 1 tab DAILY PO 11/16/24 10:00 11/16/24 09:39 1 TAB Ceftriaxone Sodium 50 ml @ 100 mls/hr DAILY@09 IV 11/16/24 09:00 11/17/24 09:44 100 MLS/HR Sodium Chloride 10 ml Q8HR IV 11/15/24 22:00 11/17/24 05:33 10 ML Ondansetron HCl 4 mg Q4HP PRN IV 11/15/24 21:15 Docusate Sodium 100 mg BIDPRN PRN PO 11/15/24 21:15 Acetaminophen 650 mg Q6HP PRN PO 11/15/24 21:15 11/16/24 15:23 650 MG Atorvastatin Calcium 20 mg HS PO 11/15/24 22:00 11/16/24 21:27 20 MG Nitroglycerin 0.4 mg Q5MINP PRN SL 11/15/24 21:45 Morphine Sulfate 2 mg Q30M PRN IV 11/15/24 21:45 Examination: GENERAL:Normal, HEENT:Normal, NECK:Normal, LUNGS:Normal, CVS:Normal, ABDOMEN:Normal, MSK:Normal, SKIN:Normal, NEURO:Normal, :Normal laboratory and microbiology Laboratory Tests 11/17/24 05:59 Test 11/17/24 05:59 Range/Units Serum Glucose 67 L 74-106 mg/dL Microbiology Date/Time Source Procedure Growth Status 11/16/24 06:35 Nose MRSA Screen - Final Complete Problem List/Assessment/Plan Problem List/Assessment/Plan #1 chronic resp failure #2 esrd: on dialysis #3 acute on chronic systolic heart failure #4 copd #5 h/o cva #6 gi bleed: s/p recent egd, colonoscopy today #7 anemia advance care planning- full code time spent 19 mins Plan discussed with: Patient My Orders My Orders Orders - NALDO GONZALEZ MD Procedure Category Date Status Time Basic Metabolic Panel LAB 11/18/24 Verified 06:00 Complete Blood Count LAB 11/18/24 Verified 06:00 Date of Service: Nov 17, 2024 Billing Provider: NALDO GONZALEZ MD Common Visit Codes: [id number] INP/OBS CARE(HIGH) NALDO GONZALEZ MD Nov 17, 2024 11:48
[2024-11-17] MEDS ORDERED: PROPOFOL 10 MG/ML 20 ML IV ONE (13:00)
[2024-11-17] MEDS: EPINEPHrine HCL 1 MG/10 ML SYRG ONE (13:30)
[2024-11-17] MEDS ORDERED: ePHEDrine SULFATE 50 MG/ML AMP ONE (13:32)
--- NOTE | 2024-11-17 13:54 | DVHOP2 ---
Operative Report DATE OF OPERATION: 11/17/24 PROCEDURE: Colonoscopy with cold biopsy polypectomy, gold probe cautery and epinephrine injection for oozing AVM PREOPERATIVE INDICATION: The patient is a 79 -year-old female undergoing colonoscopy for evaluation of recurrent GI bleed POSTOPERATIVE DIAGNOSES: 1. Moderate sigmoid diverticular disease with sigmoid fixation 2. There was a 2 mm benign-appearing descending colon polyp that was seen and removed by cold biopsy forceps 3. 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 1+ engorged internal hemorrhoids, otherwise normal liquid brown stool in the colon and no other area of bleeding noted and normal examination up to the cecum PROCEDURE PERFORMED BY: Haylee Costa M.D. SCOPE: Olympus videocolonoscope. ASA CLASS: 3. PREOPERATIVE MEDICATIONS: Dr. Dana Benitez PROCEDURE IN DETAIL: After obtaining an informed consent, the patient was placed on left lateral decubitus position. She was then sedated with the above medications. A rectal examination was performed that was normal. The colonoscope was then passed through the anus into the rectosigmoid and through the descending, transverse, and ascending colon up to the cecum with visualization of the appendiceal orifice, base of the cecum and the ileocecal valve. The colonoscope was then withdrawn. There was some fresh and active oozing from two arteriovenous malformations in the proximal ascending colon These were cauterized using a gold probe and then 8 mL of [id number] epinephrine was injected in this area with the control of bleeding No other masses or areas of bleeding were noted. Patient had a liquid normal brown stool in the colon She had moderate sigmoid diverticular disease. Patient had a 2 mm benign- appearing descending colon polyp that was seen and removed by cold biopsy forceps On retroflexion and straight on view she had 1+ engorged internal hemorrhoids The patient tolerated the procedure well without difficulty. WITHDRAWAL TIME: 12 minutes QUALITY OF THE PREP: [place] Bowel Prep score: 9. COMPLICATIONS : None SPECIMENS: Descending colon polyp DISPOSITION: Transfer back to the floor Stable PLAN: 1. Start with clear liquid diet advance slowly as tolerated 2. If the patient has recurrent bleeding recommend possible angiogram with embolization of bleeding 3. Patient will also need referral to higher level of care to [place] to get a capsule endoscopy to rule out small bowel AVMs 4. DC aspirin NSAIDs blood thinners and heparin during dialysis HAYLEE COSTA MD Nov 17, 2024 13:54
--- NOTE | 2024-11-17 15:45 | DVHPN2 ---
Progress Note - Dictate Date Seen: Nov 17, 2024 Medical Necessity Reason Pt with a Central, PICC or Fol: No Subjective no new symptoms vital signs Vital Sign Date Time Temp Pulse Resp B/P (MAP) Pulse Ox O2 Delivery O2 Flow Rate FiO2 11/17/24 14:02 64 13 116/29 (58) 100 11/17/24 14:00 Nasal Cannula 2.0 11/17/24 13:42 97.1 97.1 11/17/24 07:40 21 Total Intake and Output 11/16/24 11/16/24 11/17/24 15:00 23:00 07:00 Intake Total 336 ml 100 ml Output Total 400 ml Balance -64 ml 100 ml medications Current Medications Medications Dose Ordered Sig/Elias Route Start Time Stop Time Status Last Admin Dose Admin Pantoprazole Sodium 40 mg DAILY IV 11/16/24 10:00 11/17/24 09:44 40 MG Metronidazole 100 ml @ 100 mls/hr Q8HR IV 11/15/24 22:00 11/17/24 15:28 100 MLS/HR Sevelamer HCl 800 mg TIDWM PO 11/16/24 08:00 Multivit/Ca Carb/ B Cmplx/FA/Prenat 1 tab DAILY PO 11/16/24 10:00 11/16/24 09:39 1 TAB Ceftriaxone Sodium 50 ml @ 100 mls/hr DAILY@09 IV 11/16/24 09:00 11/17/24 09:44 100 MLS/HR Sodium Chloride 10 ml Q8HR IV 11/15/24 22:00 11/17/24 14:00 10 ML Ondansetron HCl 4 mg Q4HP PRN IV 11/15/24 21:15 Docusate Sodium 100 mg BIDPRN PRN PO 11/15/24 21:15 Acetaminophen 650 mg Q6HP PRN PO 11/15/24 21:15 11/16/24 15:23 650 MG Atorvastatin Calcium 20 mg HS PO 11/15/24 22:00 11/16/24 21:27 20 MG Nitroglycerin 0.4 mg Q5MINP PRN SL 11/15/24 21:45 Morphine Sulfate 2 mg Q30M PRN IV 11/15/24 21:45 objective Gen: NAD HEENT: NC,AT Lungs: CTA b/l Cardiac: RRR, no murmur Abd: soft, no tenderness Ext: no edema + left thigh AVG laboratory and microbiology Laboratory Tests 11/17/24 05:59 Test 11/17/24 05:59 Range/Units Serum Glucose 67 L 74-106 mg/dL Assessment/Plan Assessment: ESRD on HD via left thigh AVG Acute on chronic anemia. Hb: 8.8 g/dl improved sigmoid diverticulitis Hyperphosphatemia Secondary hyperparathyroidism Metabolic acidosis Azotemia COPD HTN h/o CVA Plan: s/p HD Friday Next HD likely on Friday to get patient back on outpatient MWF schedule s/p colonoscopy today. AVM at proximal ascending colon were cauterized. Plan is also for outpatient capsule endoscopy at [facility] post HD GI consult monitor H&H Transfuse if Hb < 7 g/dl Plan discussed with: Patient JACKIE DUMONT MD Nov 17, 2024 15:45
[2024-11-18 05:00] VITALS: BP 94/43; PULSE 63; RESP 17; TEMP 97.9; O2SAT 97
[2024-11-18 07:20] LABS: Basophils # (auto) 0.1 10 ^3/uL (0-0.2); Eosinophils # (auto) 0.1 10 ^3/uL (0-0.8); Hematocrit 21.8 % (36.0-46.0); Hemoglobin 7.3 g/dL (12.2-16.2); Lymphocytes # (auto) 0.8 10 ^3/uL (0.4-5.4); Mean Corpuscular Hemoglobin 30.9 pg (28.0-32.0); Mean Corpuscular Hgb Conc. 33.6 g/dL (32.0-36.0); Neutrophils # (auto) 3.2 10 ^3/uL (1.6-8.6); Nucleated Red Blood Cells % 0.1 %; Red Blood Cells 2.37 10^6/uL (4.0-5.20)
[2024-11-18 07:23] LABS: Basophils % (auto) 1.2 % (0.0-2.0); Eosinophils % (auto) 2.5 % (0.0-7.0); Lymphocytes % (auto) 16.2 % (10.0-50.0); Monocytes # (auto) 0.5 10 ^3/uL (0-1.3); Monocytes % (auto) 11.4 % (0.0-12.0); Neutrophils % (auto) 68.7 % (37.0-80.0); Platelet Count (auto) 287 10^3/uL (140-450); Red Cell Distribution Width 15.2 % (11.8-14.3); White Blood Cell 4.7 10^3/uL (4.4-10.8)
[2024-11-18 07:33] LABS: Calcium 9.9 mg/dL (8.7-10.4); Potassium 4.1 mmol/L (3.5-5.1)
[2024-11-18 07:34] LABS: Anion Gap 12 (5-15); Carbon Dioxide 26 mmol/L (20-31)
[2024-11-18 07:39] LABS: BUN/Creatinine Ratio 3.5 (10.0-20.0); Blood Urea Nitrogen 21 mg/dL (9-23); Chloride 98 mmol/L (98-107); Glucose 58 mg/dL (74-106); Sodium 136 mmol/L (136-145)
[2024-11-18 08:47] VITALS: BP 100/37; PULSE 66; RESP 16; TEMP 98.8; O2SAT 97
[2024-11-18 09:01] LABS: Hepatitis B Surface Antigen Negative (Negative)
[2024-11-18 09:16] LABS: Hepatitis A Ab IgM Negative; Hepatitis B Core IgM Negative (Negative); Hepatitis C Antibody Negative (Negative)
--- NOTE | 2024-11-18 12:12 | DVHPN2 ---
Progress Note Date Seen: Nov 18, 2024 Resident Creating Document: ASHLEIGH GRAVES RESIDENT Medical Necessity Reason Pt with a Central, PICC or Fol: No Subjective Review of Systems Francie Go is a 79-year-old female with past medical history of hypertension, hyperlipidemia, COPD, CHF, end-stage renal disease on HD (M/W/F), TIA, CVA x2 with no deficits, cholecystectomy, tonsillectomy, and right shoulder fracture 1 year ago who presents to the ED with melena. Patient reports that she explosive loose watery tarry black BM 2/ after she had HD session. She has had 2 such episodes yesterday. Reports unintentional weight loss 70 lb in the past 2 years. Recently admitted here for similar reasons, EGD completed 11/10, biopsy shows mild chronic inactive gastritis. No H pylori. No intestinal metaplasia/dysplasia or malignancy. She was advised GI workup including outpatient capsule endoscopy on discharge. She has had multiple colonoscopies in the past. Patient is seen and examined at the bedside. Hemoglobin dropped to 7.3 again. Had a dark bowel movement this morning. Objective vital signs Vital Sign Date Time Temp Pulse Resp B/P (MAP) Pulse Ox O2 Delivery O2 Flow Rate FiO2 11/18/24 08:47 98.8 66 16 100/37 (58) 97 98.8 11/17/24 20:00 Room Air* 0 21 Total Intake and Output 11/17/24 11/17/24 11/18/24 15:00 23:00 07:00 Intake Total 50 ml 200 ml 600 ml Balance 50 ml 200 ml 600 ml medications Current Medications Medications Dose Ordered Sig/Elias Route Start Time Stop Time Status Last Admin Dose Admin Pantoprazole Sodium 40 mg DAILY IV 11/16/24 10:00 11/18/24 08:28 40 MG Metronidazole 100 ml @ 100 mls/hr Q8HR IV 11/15/24 22:00 11/18/24 05:58 100 MLS/HR Sevelamer HCl 800 mg TIDWM PO 11/16/24 08:00 11/18/24 08:27 800 MG Multivit/Ca Carb/ B Cmplx/FA/Prenat 1 tab DAILY PO 11/16/24 10:00 11/18/24 08:27 1 TAB Ceftriaxone Sodium 50 ml @ 100 mls/hr DAILY@09 IV 11/16/24 09:00 11/18/24 08:33 100 MLS/HR Sodium Chloride 10 ml Q8HR IV 11/15/24 22:00 11/18/24 05:58 10 ML Ondansetron HCl 4 mg Q4HP PRN IV 11/15/24 21:15 Docusate Sodium 100 mg BIDPRN PRN PO 11/15/24 21:15 Acetaminophen 650 mg Q6HP PRN PO 11/15/24 21:15 11/16/24 15:23 650 MG Atorvastatin Calcium 20 mg HS PO 11/15/24 22:00 11/17/24 21:49 20 MG Nitroglycerin 0.4 mg Q5MINP PRN SL 11/15/24 21:45 Morphine Sulfate 2 mg Q30M PRN IV 11/15/24 21:45 Examination Elderly female patient lying in bed, in no acute distress General: Overweight, afebrile, palor, mucosae are moist Cardiovascular: Regular S1 and S2. Systolic ejection murmur. No gallops or rubs. No JVD elevation. No pedal edema Respiratory: Normal B/L air entry on room air. Clear lung sounds on auscultation Abdomen: Soft, nontender, nondistended, normoactive bowel sounds, no rebound tenderness, no organomegaly, no masses Genitourinary: Deferred MSK/skin: Mobilizes 4 limbs. Skin is dry and warm Neurological: No motor, no sensitive deficits, normal speech. Pupils are isocoric and reactive. Psych/Mental Status: A/Ox3 laboratory and microbiology Laboratory Tests 11/18/24 06:19 Test 11/18/24 06:19 Range/Units Serum Glucose 58 L 74-106 mg/dL Microbiology Date/Time Source Procedure Growth Status 11/16/24 06:35 Nose MRSA Screen - Final Complete Labs and/or images reviewed: Labs reviewed by me, Image(s) reviewed by me Problem List/Assessment/Plan Problem List/Assessment/Plan Probable lower GI bleeding secondary to actively oozing AVM/angiodysplasias ?Heyde syndrome Microcytic anemia secondary to above Moderate sigmoid diverticulitis 2 cm hiatal hernia Descending colon 2 mm polyp ESRD on hemodialysis Systolic CHF-EF 25-30% [id number] Unintentional weight loss 70 lb in 2 years EGD completed 11/10, Biopsy from EGD showed mild chronic inactive gastritis. No H pylori no metaplasia/dysplasia/malignancy. Colonoscopy 2/ shows to actively oozing AVMs in the proximal ascending colon which were cauterized and injected with epinephrine. Moderate sigmoid diverticular disease. 2 mm benign descending colonic polyp Plan Patient has probably bleeding from small-bowel angiodysplasia. Needs referral to higher level of care to [place] to get a capsule endoscopy to rule out small- bowel avm Consider possible angiogram with embolization of bleeding if the patient has recurrent bleeding Continue ceftriaxone and metronidazole Continue Protonix IV daily Diet: Soft diet Plan discussed with patient in which all questions have been answered Case discussed with Dr. Costa. Plan discussed with: Patient ASHLEIGH GRAVES RESIDENT Nov 18, 2024 12:12
[2024-11-18 13:00] VITALS: BP 101/47; PULSE 68; RESP 19; TEMP 97.9; O2SAT 93
--- NOTE | 2024-11-18 15:33 | DVHPN2 ---
Progress Note Date Seen: Nov 18, 2024 Medical Necessity Reason Pt with a Central, PICC or Fol: No Subjective Patient reports: No new complaints Review of Systems: HEENT:Normal, CVS:Normal, RESPIRATORY:Normal, GI:Normal, :Normal, MSK:Normal, NEURO:Normal Objective vital signs Vital Sign Date Time Temp Pulse Resp B/P (MAP) Pulse Ox O2 Delivery O2 Flow Rate FiO2 11/18/24 13:00 97.9 68 19 101/47 (65) 93 97.9 11/18/24 08:00 Room Air* 0 21 Total Intake and Output 11/17/24 11/17/24 11/18/24 15:00 23:00 07:00 Intake Total 50 ml 200 ml 600 ml Balance 50 ml 200 ml 600 ml medications Current Medications Medications Dose Ordered Sig/Elias Route Start Time Stop Time Status Last Admin Dose Admin Pantoprazole Sodium 40 mg DAILY IV 11/16/24 10:00 11/18/24 08:28 40 MG Metronidazole 100 ml @ 100 mls/hr Q8HR IV 11/15/24 22:00 11/18/24 05:58 100 MLS/HR Sevelamer HCl 800 mg TIDWM PO 11/16/24 08:00 11/18/24 12:22 800 MG Multivit/Ca Carb/ B Cmplx/FA/Prenat 1 tab DAILY PO 11/16/24 10:00 11/18/24 08:27 1 TAB Ceftriaxone Sodium 50 ml @ 100 mls/hr DAILY@09 IV 11/16/24 09:00 11/18/24 08:33 100 MLS/HR Sodium Chloride 10 ml Q8HR IV 11/15/24 22:00 11/18/24 05:58 10 ML Ondansetron HCl 4 mg Q4HP PRN IV 11/15/24 21:15 Docusate Sodium 100 mg BIDPRN PRN PO 11/15/24 21:15 Acetaminophen 650 mg Q6HP PRN PO 11/15/24 21:15 11/16/24 15:23 650 MG Atorvastatin Calcium 20 mg HS PO 11/15/24 22:00 11/17/24 21:49 20 MG Nitroglycerin 0.4 mg Q5MINP PRN SL 11/15/24 21:45 Morphine Sulfate 2 mg Q30M PRN IV 11/15/24 21:45 Examination: GENERAL:Normal, HEENT:Normal, NECK:Normal, LUNGS:Normal, CVS:Normal, ABDOMEN:Normal, MSK:Normal, SKIN:Normal, NEURO:Normal, :Normal laboratory and microbiology Laboratory Tests 11/18/24 06:19 Test 11/18/24 06:19 Range/Units Serum Glucose 58 L 74-106 mg/dL Microbiology Date/Time Source Procedure Growth Status 11/16/24 06:35 Nose MRSA Screen - Final Complete Problem List/Assessment/Plan Problem List/Assessment/Plan #1 chronic resp failure #2 esrd: on dialysis #3 acute on chronic systolic heart failure #4 copd #5 h/o cva #6 gi bleed: s/p recent egd, colonoscopy today #7 anemia: transfuse with dialysis advance care planning- full code time spent 19 mins Plan discussed with: Patient My Orders My Orders Orders - NALDO GONZALEZ MD Procedure Category Date Status Time Packedcells -Active BBK 11/18/24 Verified Bleeding 15:29 Type And Screen BBK 11/18/24 Verified 15:29 Pantoprazole Tablet PHA 11/19/24 Verified (Protonix Tablet) 06:00 Iron Ivpb PHA 11/19/24 Verified 12:00 Basic Metabolic Panel LAB 11/19/24 Verified 06:00 Complete Blood Count LAB 11/19/24 Verified 06:00 Date of Service: Nov 18, 2024 Billing Provider: NALDO GONZALEZ MD Common Visit Codes: [id number] INP/OBS CARE(HIGH) Secondary Visit Codes: [id number] CARE PLAN 30 MINUTES NALDO GONZALEZ MD Nov 18, 2024 15:33
[2024-11-18 16:43] VITALS: BP 125/43; PULSE 64; RESP 18; TEMP 98.4; O2SAT 90
--- NOTE | 2024-11-18 18:12 | DVHPN2 ---
Progress Note - Dictate Date Seen: Nov 18, 2024 Medical Necessity Reason Pt with a Central, PICC or Fol: No Subjective no new symptoms vital signs Vital Sign Date Time Temp Pulse Resp B/P (MAP) Pulse Ox O2 Delivery O2 Flow Rate FiO2 11/18/24 16:43 98.4 64 18 125/43 (70) 90 98.4 11/18/24 08:00 Room Air* 0 21 Total Intake and Output 11/17/24 11/17/24 11/18/24 15:00 23:00 07:00 Intake Total 50 ml 200 ml 600 ml Balance 50 ml 200 ml 600 ml medications Current Medications Medications Dose Ordered Sig/Elias Route Start Time Stop Time Status Last Admin Dose Admin Sevelamer HCl 800 mg TIDWM PO 11/16/24 08:00 11/18/24 12:22 800 MG Multivit/Ca Carb/ B Cmplx/FA/Prenat 1 tab DAILY PO 11/16/24 10:00 11/18/24 08:27 1 TAB Sodium Chloride 10 ml Q8HR IV 11/15/24 22:00 11/18/24 14:00 10 ML Ondansetron HCl 4 mg Q4HP PRN IV 11/15/24 21:15 Docusate Sodium 100 mg BIDPRN PRN PO 11/15/24 21:15 Acetaminophen 650 mg Q6HP PRN PO 11/15/24 21:15 11/16/24 15:23 650 MG Atorvastatin Calcium 20 mg HS PO 11/15/24 22:00 11/17/24 21:49 20 MG Nitroglycerin 0.4 mg Q5MINP PRN SL 11/15/24 21:45 Morphine Sulfate 2 mg Q30M PRN IV 11/15/24 21:45 Pantoprazole Sodium 40 mg DAILY@0600 PO 11/19/24 06:00 Iron Sucrose 110 ml @ 110 mls/hr DAILY@1200 IV 11/19/24 12:00 11/23/24 12:59 objective Gen: NAD HEENT: NC,AT Lungs: CTA b/l Cardiac: RRR, no murmur Abd: soft, no tenderness Ext: no edema + left thigh AVG laboratory and microbiology Laboratory Tests 11/18/24 06:19 Test 11/18/24 06:19 Range/Units Serum Glucose 58 L 74-106 mg/dL Assessment/Plan Assessment: ESRD on HD via left thigh AVG Acute on chronic anemia. sigmoid diverticulitis Hyperphosphatemia Secondary hyperparathyroidism Metabolic acidosis Azotemia COPD HTN h/o CVA Plan: s/p HD Friday Next HD tomorrow- Friday continue HD on MWF schedule s/p colonoscopy. AVM at proximal ascending colon were cauterized. Plan is also for outpatient capsule endoscopy at [facility] post HD GI consult monitor H&H Transfuse if Hb < 7 g/dl Plan discussed with: Patient JACKIE DUMONT MD Nov 18, 2024 18:12
--- NOTE | 2024-11-18 18:39 | ECG ---
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
[2024-11-18 21:00] VITALS: BP 126/54; PULSE 71; RESP 18; TEMP 97.4; O2SAT 95
[2024-11-19] VITALS (9 sets, daily range): BP systolic 108–148; BP diastolic 42–65; PULSE 60–70; RESP 16–19; TEMP 97–98.6; O2SAT 96–100
[2024-11-19] MEDS: PANTOPRAZOLE 40 MG TAB PO SCH (05:10)
--- NOTE | 2024-11-19 06:53 | DVHPN2 ---
Progress Note - Dictate Date Seen: Nov 19, 2024 Medical Necessity Reason Pt with a Central, PICC or Fol: No Subjective no new symptoms vital signs Vital Sign Date Time Temp Pulse Resp B/P (MAP) Pulse Ox O2 Delivery O2 Flow Rate FiO2 11/19/24 05:00 97.4 69 18 126/47 (73) 98 97.4 11/18/24 20:00 Room Air* 0 21 Total Intake and Output 11/18/24 11/18/24 11/19/24 15:00 23:00 07:00 Intake Total 50 ml 560 ml 375 ml Balance 50 ml 560 ml 375 ml medications Current Medications Medications Dose Ordered Sig/Elias Route Start Time Stop Time Status Last Admin Dose Admin Sevelamer HCl 800 mg TIDWM PO 11/16/24 08:00 11/18/24 12:22 800 MG Multivit/Ca Carb/ B Cmplx/FA/Prenat 1 tab DAILY PO 11/16/24 10:00 11/18/24 08:27 1 TAB Sodium Chloride 10 ml Q8HR IV 11/15/24 22:00 11/19/24 05:11 10 ML Ondansetron HCl 4 mg Q4HP PRN IV 11/15/24 21:15 Docusate Sodium 100 mg BIDPRN PRN PO 11/15/24 21:15 Acetaminophen 650 mg Q6HP PRN PO 11/15/24 21:15 11/16/24 15:23 650 MG Atorvastatin Calcium 20 mg HS PO 11/15/24 22:00 11/18/24 21:52 20 MG Nitroglycerin 0.4 mg Q5MINP PRN SL 11/15/24 21:45 Morphine Sulfate 2 mg Q30M PRN IV 11/15/24 21:45 Pantoprazole Sodium 40 mg DAILY@0600 PO 11/19/24 06:00 11/19/24 05:10 40 MG Iron Sucrose 110 ml @ 110 mls/hr DAILY@1200 IV 11/19/24 12:00 11/23/24 12:59 objective Gen: NAD HEENT: NC,AT Lungs: CTA b/l Cardiac: RRR, no murmur Abd: soft, no tenderness Ext: no edema + left thigh AVG laboratory and microbiology Laboratory Tests 11/18/24 06:19 Test 11/18/24 06:19 Range/Units Serum Glucose 58 L 74-106 mg/dL Assessment/Plan Assessment: ESRD on HD via left thigh AVG Acute on chronic anemia. sigmoid diverticulitis Hyperphosphatemia Secondary hyperparathyroidism Metabolic acidosis Azotemia COPD HTN h/o CVA Plan: Scheduled for HD today - Friday continue HD on MWF schedule s/p colonoscopy. AVM at proximal ascending colon were cauterized. Plan is also for outpatient capsule endoscopy at [facility] post HD GI consult monitor H&H Transfuse if Hb < 7 g/dl Plan discussed with: Patient JACKIE DUMONT MD Nov 19, 2024 06:53
[2024-11-19] MEDS ORDERED: SODIUM CHL 0.9% 1000 ML BAG XX ONE (07:00)
[2024-11-19] MEDS: IRON SUCROSE COMPLEX 110 ML IV SCH (11:13)
[2024-11-19 11:30] LABS: Basophils # (auto) 0.1 10 ^3/uL (0-0.2); Basophils % (auto) 1.1 % (0.0-2.0); Eosinophils # (auto) 0.1 10 ^3/uL (0-0.8); Eosinophils % (auto) 2.4 % (0.0-7.0); Hematocrit 25.5 % (36.0-46.0); Hemoglobin 8.5 g/dL (12.2-16.2); Lymphocytes # (auto) 0.7 10 ^3/uL (0.4-5.4); Lymphocytes % (auto) 12.8 % (10.0-50.0); Mean Corpuscular Hemoglobin 30.4 pg (28.0-32.0); Mean Corpuscular Hgb Conc. 33.3 g/dL (32.0-36.0); Mean Corpuscular Volume 91.1 fL (80.0-100.0); Monocytes # (auto) 0.4 10 ^3/uL (0-1.3); Monocytes % (auto) 7.9 % (0.0-12.0); Neutrophils # (auto) 4.1 10 ^3/uL (1.6-8.6); Neutrophils % (auto) 75.8 % (37.0-80.0); Nucleated Red Blood Cells % 0.1 %; Platelet Count (auto) 287 10^3/uL (140-450); Red Cell Distribution Width 15.6 % (11.8-14.3); White Blood Cell 5.4 10^3/uL (4.4-10.8)
--- NOTE | 2024-11-19 15:54 | DVHDS2 ---
Discharge Summary Date of Admission Nov 15, 2024 at 21:33 Date of Discharge: Nov 19, 2024 Labs/Diagnostic Data: Laboratory Results Test 11/19/24 15:28 11/19/24 10:36 11/16/24 20:54 11/16/24 05:02 White Blood Count 5.4 10^3/uL (4.4-10.8) Red Blood Count 2.80 10^6/uL (4.0-5.20) Hemoglobin 8.5 g/dL (12.2-16.2) Hematocrit 25.5 % (36.0-46.0) Mean Corpuscular Volume 91.1 fL (80.0-100.0) Mean Corpuscular Hemoglobin 30.4 pg (28.0-32.0) Mean Corpuscular Hemoglobin Concent 33.3 g/dL (32.0-36.0) Red Cell Distribution Width 15.6 % (11.8-14.3) Platelet Count 287 10^3/uL (140-450) Mean Platelet Volume 7.1 fL (6.9-10.8) Neutrophils (%) (Auto) 75.8 % (37.0-80.0) Lymphocytes (%) (Auto) 12.8 % (10.0-50.0) Monocytes (%) (Auto) 7.9 % (0.0-12.0) Eosinophils (%) (Auto) 2.4 % (0.0-7.0) Basophils (%) (Auto) 1.1 % (0.0-2.0) Neutrophils # (Auto) 4.1 10 ^3/uL (1.6-8.6) Lymphocytes # (Auto) 0.7 10 ^3/uL (0.4-5.4) Monocytes # (Auto) 0.4 10 ^3/uL (0-1.3) Eosinophils # (Auto) 0.1 10 ^3/uL (0-0.8) Basophils # (Auto) 0.1 10 ^3/uL (0-0.2) Nucleated Red Blood Cells 0.1 % Stool Occult Blood Positive (Negative) Stool Occult Blood Sample #3 (Negative) Total Bilirubin 0.4 mg/dL (0.2-1.0) Aspartate Amino Transferase (AST) 12 U/L (13-40) Alanine Aminotransferase (ALT) 9 U/L (7-40) Alkaline Phosphatase 93 U/L (46-116) Total Protein 7.3 g/dL (5.7-8.2) Albumin 3.4 g/dL (3.2-4.8) Hepatitis A IgM Antibody Negative Hepatitis B Surface Antigen Negative (Negative) Hepatitis B Core IgM Antibody Negative (Negative) Hepatitis C Antibody Negative (Negative) Test 11/15/24 22:20 11/15/24 21:45 11/15/24 18:44 B-Type Natriuretic Peptide 739.01 pg/mL (0-100) Troponin I High Sensitivity 22 ng/L (</=34) Prothrombin Time 10.9 sec (9.3-11.8) Prothrombin Time INR 1.03 (0.9-1.15) Activated Partial Thromboplast Time 29.1 SEC (24.5-34.5) Lactic Acid Level 1.0 mmol/L (0.4-2.0) Lipase 42 U/L (12-53) Other Laboratory Tests 11/19/24 10:36 Brief Hx & Hospital Course: The patient is a 79-year-old female with multiple past medical history including COPD, CHF, ESRD on dialysis, and TIA presented to [facility] ED with complaint of rectal bleeding. Patient reports he has been having rectal bleeding for the past two years, had about four cups of blood coming out of her rectum today, getting worse that prompted this visit. Patient reports multiple colonoscopy/endoscopy procedure last 2 years ago. Patient was seen and evaluated in the ED, laboratory data shows WBC 5.3, hemoglobin 7.5, hematocrit 23.1, platelets 291, sodium 134, potassium 4.3, BUN 32, creatinine 4.86, GFR 9, glucose 72, lipase 42, troponin 22. Abdomen/pelvis CT revealing colonic diverticulosis with minimal fat stranding adjacent to the sigmoid, correlate for mild sigmoid diverticulitis; mild gastric wall thickening which may be due to inadequate distention with gastritis not excluded. GI/nephrology followed the patient, please see medication orders section in the computer. On my assessment, patient denied chest pain, no headache, no dizziness, no shortness of breath, no abdominal pain, no diarrhea, no nausea, no vomiting, no fever, no chills. Patient was admitted for further evaluation and medical management. HB stable now Had s/p colonoscopy. AVM at proximal ascending colon were cauterized. Plan is also for outpatient capsule endoscopy at [place] Condition at Discharge: Good Final Diagnosis/Problems List Acute lower GI bleeding AVM in colon Acute blood loss anemia Discharge Disposition: Home Discharge Instruct/Medications Diet: Renal Activity: No Restrictions, As Tolerated Discharge Statement: "Patient was advised to return to the ER or call 911 if any headaches, dizziness, shortness of breath, chest pain, abdominal pain, bleeding, fevers, or worsening of medical condition. Patient was counseled about treatment plan, medications, possible side effects, patientverbalized understanding. All questions were answered to the best of my ability. This discharge took greater then 30 minutes in planning, reviewing documentation, counseling the patient, and discussing with other team members." ASSESSMENT ASSESSMENT Assessment Date of Service: Nov 19, 2024 Billing Provider: DEEP PRIDE MD Common Visit Codes: 91481-MCT/OBS DISCH DAY >30min DEEP PRIDE MD Nov 19, 2024 15:54
[2024-11-19 16:10] LABS: Sodium 137 mmol/L (136-145)
[2024-11-19 16:11] LABS: Anion Gap 7 (5-15)
[2024-11-19 16:12] LABS: Calcium 9.1 mg/dL (8.7-10.4)
[2024-11-19 16:17] LABS: BUN/Creatinine Ratio 2.8 (10.0-20.0); Blood Urea Nitrogen 10 mg/dL (9-23)
[2024-11-19 16:18] LABS: Carbon Dioxide 32 mmol/L (20-31); Chloride 98 mmol/L (98-107); Glucose 61 mg/dL (74-106); Potassium 3.4 mmol/L (3.5-5.1)
--- NOTE | 2024-11-19 17:17 | DVHPN2 ---
Progress Note Date Seen: Nov 19, 2024 Resident Creating Document: ASHLEIGH GRAVES RESIDENT Medical Necessity Reason Pt with a Central, PICC or Fol: No Subjective Review of Systems Francie Go is a 79-year-old female with past medical history of hypertension, hyperlipidemia, COPD, CHF, end-stage renal disease on HD (M/W/F), TIA, CVA x2 with no deficits, cholecystectomy, tonsillectomy, and right shoulder fracture 1 year ago who presents to the ED with melena. Patient reports that she explosive loose watery tarry black BM 2/ after she had HD session. She has had 2 such episodes yesterday. Reports unintentional weight loss 70 lb in the past 2 years. Recently admitted here for similar reasons, EGD completed 11/10, biopsy shows mild chronic inactive gastritis. No H pylori. No intestinal metaplasia/dysplasia or malignancy. She was advised GI workup including outpatient capsule endoscopy on discharge. She has had multiple colonoscopies in the past. Patient is seen and examined at the bedside. Underwent hemodialysis, 2 L taken out. Objective vital signs Vital Sign Date Time Temp Pulse Resp B/P (MAP) Pulse Ox O2 Delivery O2 Flow Rate FiO2 11/19/24 16:30 97.6 66 18 96 11/19/24 13:00 108/51 (70) 11/19/24 08:00 Room Air* 0 21 Total Intake and Output 11/18/24 11/18/24 11/19/24 15:00 23:00 07:00 Intake Total 50 ml 560 ml 375 ml Balance 50 ml 560 ml 375 ml medications Current Medications Medications Dose Ordered Sig/Elias Route Start Time Stop Time Status Last Admin Dose Admin Sevelamer HCl 800 mg TIDWM PO 11/16/24 08:00 11/19/24 11:10 800 MG Multivit/Ca Carb/ B Cmplx/FA/Prenat 1 tab DAILY PO 11/16/24 10:00 11/19/24 08:53 1 TAB Sodium Chloride 10 ml Q8HR IV 11/15/24 22:00 11/19/24 14:00 10 ML Ondansetron HCl 4 mg Q4HP PRN IV 11/15/24 21:15 Docusate Sodium 100 mg BIDPRN PRN PO 11/15/24 21:15 Acetaminophen 650 mg Q6HP PRN PO 11/15/24 21:15 2/4/25 15:23 650 MG Atorvastatin Calcium 20 mg HS PO 11/15/24 22:00 11/18/24 21:52 20 MG Nitroglycerin 0.4 mg Q5MINP PRN SL 11/15/24 21:45 Morphine Sulfate 2 mg Q30M PRN IV 11/15/24 21:45 Pantoprazole Sodium 40 mg DAILY@0600 PO 11/19/24 06:00 11/19/24 05:10 40 MG Iron Sucrose 110 ml @ 110 mls/hr DAILY@1200 IV 11/19/24 12:00 11/23/24 12:59 11/19/24 11:13 110 MLS/HR Examination Elderly female patient lying in bed, in no acute distress General: Overweight, afebrile, palor, mucosae are moist Cardiovascular: Regular S1 and S2. Systolic ejection murmur. No gallops or rubs. No JVD elevation. No pedal edema Respiratory: Normal B/L air entry on room air. Clear lung sounds on auscultation Abdomen: Soft, nontender, nondistended, normoactive bowel sounds, no rebound tenderness, no organomegaly, no masses Genitourinary: Deferred MSK/skin: Mobilizes 4 limbs. Skin is dry and warm Neurological: No motor, no sensitive deficits, normal speech. Pupils are isocoric and reactive. Psych/Mental Status: A/Ox3 laboratory and microbiology Laboratory Tests 11/19/24 15:28 11/19/24 10:36 Test 11/19/24 15:28 Range/Units Serum Glucose 61 L 74-106 mg/dL Microbiology Date/Time Source Procedure Growth Status 11/16/24 06:35 Nose MRSA Screen - Final Complete Labs and/or images reviewed: Labs reviewed by me, Image(s) reviewed by me Problem List/Assessment/Plan Problem List/Assessment/Plan Probable lower GI bleeding secondary to actively oozing AVM/angiodysplasias ?Heyde syndrome Microcytic anemia secondary to above Moderate sigmoid diverticulitis 2 cm hiatal hernia Descending colon 2 mm polyp ESRD on hemodialysis Systolic CHF-EF 25-30% [id number] Unintentional weight loss 70 lb in 2 years EGD completed 11/10, Biopsy from EGD showed mild chronic inactive gastritis. No H pylori no metaplasia/dysplasia/malignancy. Colonoscopy 11/17 shows to actively oozing AVMs in the proximal ascending colon which were cauterized and injected with epinephrine. Moderate sigmoid diverticular disease. 2 mm benign descending colonic polyp Plan Patient has probably bleeding from small-bowel angiodysplasia. Needs referral to higher level of care to [place] to get a capsule endoscopy to rule out small- bowel avm Consider possible angiogram with embolization of bleeding if the patient has recurrent bleeding Continue ceftriaxone and metronidazole Continue Protonix IV daily Underwent hemodialysis, 2 L taken out. Stable to be discharged home. Diet: Soft diet Plan discussed with patient in which all questions have been answered Case discussed with Dr. Costa. Plan discussed with: Patient ASHLEIGH GRAVES RESIDENT Nov 19, 2024 17:17
[2024-11-19] MEDS ORDERED: EPOETIN ALFA-EPBX 10,000 UNIT/1ML VIAL SC ONE (21:00)
== END 2024-11-19 18:05 | disposition home or self-care (01) | DRG 377 ==
LOC: ER 17:17 → EDBD 17:17 → TELE 21:33 → TELE-WESTW 11-16 02:45 → WEST WING 11-17 12:00
PROVIDERS: ADMIT Nurse Practitioner Family; ATTEND Hospitalist
PROC: 5A1D70Z Performance of Urinary Filtration, Intermittent, Less than 6 Hours Per Day (ICD-10-PCS; 2024-11-16)
PROC: 0W3P8ZZ Control Bleeding in Gastrointestinal Tract, Via Natural or Artificial Opening Endoscopic (ICD-10-PCS; 2024-11-17)
PROC: 3E0H8GC Introduction of Other Therapeutic Substance into Lower GI, Via Natural or Artificial Opening Endoscopic (ICD-10-PCS; 2024-11-17)
PROC: 0DBM8ZX Excision of Descending Colon, Via Natural or Artificial Opening Endoscopic, Diagnostic (ICD-10-PCS; principal; 2024-11-17 13:10)
PROC: 30233N1 Transfusion of Nonautologous Red Blood Cells into Peripheral Vein, Percutaneous Approach (ICD-10-PCS; 2024-11-19)
DX: K55.21 Angiodysplasia of colon with hemorrhage (principal); I50.23 Acute on chronic systolic (congestive) heart failure; N18.6 End stage renal disease; E87.20 Acidosis, unspecified; J96.10 Chronic respiratory failure, unspecified whether with hypoxia or hypercapnia; D62 Acute posthemorrhagic anemia; I13.2 Hypertensive heart and chronic kidney disease with heart failure and with stage 5 chronic kidney disease, or end stage renal disease; K57.33 Diverticulitis of large intestine without perforation or abscess with bleeding; J44.9 Chronic obstructive pulmonary disease, unspecified; K63.5 Polyp of colon; K64.8 Other hemorrhoids; K44.9 Diaphragmatic hernia without obstruction or gangrene; E21.1 Secondary hyperparathyroidism, not elsewhere classified; Z90.49 Acquired absence of other specified parts of digestive tract; Z88.5 Allergy status to narcotic agent; Z82.49 Family history of ischemic heart disease and other diseases of the circulatory system; Z82.0 Family history of epilepsy and other diseases of the nervous system; Z83.3 Family history of diabetes mellitus; Z86.73 Personal history of transient ischemic attack (TIA), and cerebral infarction without residual deficits; Z99.2 Dependence on renal dialysis
CPT/HCPCS: 36415; 71045; 74176; 80048; 80053; 80074; 82270; 83605; 83690; 83880; 84484; 85025; 85610; 85730; 86850; 86900; 86901; 86920; 87081; 90935; 93005; G0378; J1756; J2250; J2470; J2704; J3490

== ENCOUNTER 2024-11-25 19:54 | Emergency (ER) | payer OTHER ==
[~2024-11-25] VITALS: Ht 157.5 cm; Wt 63.6 kg
--- NOTE | 2024-11-25 20:47 | ED.PDOC ---
History of Present Illness HPI Comments 79-year-old female came ER via EMS for shortness of breath. Patient recently discharged here a week ago and was diagnosed with 1. Acute lower GI bleeding, 2. AVM in colon s/p cautery, endoscopy, 3. Acute blood loss anemia. She does have history of hypertension, congestive heart failure, COPD, ESRD on dialysis Friday. States she was feeling unwell of ever since she was discharged, with productive cough, shortness of breath, orthopnea, chest discomfort. Was unable to get her dialysis session yesterday because she feels sick. Was saturating 65% on room air. Chief Complaint: Shortness of Breath Time Seen by MD: 20:41 Primary Care Provider: Dr. Cox Allergies: Coded Allergies: Diphenhydramine (Verified Allergy, Unknown, 11/25/24) Hydrocodone (Verified Allergy, Unknown, 05/17/18) Home Meds Active Scripts Sucralfate (CARAFATE SUSP) 1 Gm/10 Ml Ss, 1 GM PO BID@0600,2200, #120 ML 5 Refills Prov:SHIRLEY QUINTERO MD 11/12/24 Pantoprazole Sodium Sesquihydr (Pantoprazole Sodium) 40 Mg Tab, 40 MG PO DAILY@0600, #30 TAB 5 Refills Prov:SHIRLEY QUINTERO MD 11/12/24 Reported Medications Sevelamer Carbonate (Renvela) 800 Mg Tab, 2 TAB PO TID 05/18/24 Midodrine Hcl (Midodrine Hcl) 5 Mg Tab, 1 TAB PO BID PRN for DIZZINESS 05/18/24 Calcium Acetate (PHOSLO CAPSULE) 667 Mg Cp, 4 CAP PO TID, #180 CAP 5 Refills 01/01/18 B Complex W/ C (B COMPLEX/VITAMIN C) Vit C Cap, 1 C PO DAILY, CAP 12/30/17 Amiodarone Hcl (Amiodarone Hcl) 200 Mg Tab, 200 MG PO DAILY for 30 Days 12/30/17 Atorvastatin Calcium (Lipitor) 20 Mg Tab, 1 TAB PO HS, #90 TAB 1 Refill 12/30/17 Information Source: Patient, Emergency Med Personnel Mode of Arrival: EMS Severity: Moderate Timing: Days Duration: Intermittent Prehospital treatment: Accucheck, Oxygen Past Medical History PAST MEDICAL HISTORY: CHF, COPD, CVA, ESRD, High Lipids, HTN, TIA Surgical History: Cholecystectomy, Tonsillectomy Surgical History (Other): Dialysis Friday [employer] History: Pt Confused Family History Family History: No family hx of DM, No family hx of Heart elaina, No family hx of HTN, No family hx of Lung elaina Social History Smoker: Non-Smoker Alcohol: Denies ETOH Use Drugs: Denies Drug Use Lives In: Home Constitutional: denies: chills, diaphoresis, fatigue, fever, malaise, sweats, weakness, others EENTM: denies: blurred vision, double vision, ear bleeding, ear discharge, ear drainage, ear pain, ear ringing, eye pain, eye redness, hearing loss, mouth pain, mouth swelling, nasal discharge, nose bleeding, nose congestion, nose pain, photophobia, tearing, throat pain, throat swelling, voice changes, others Respiratory: reports: cough, orthopnea, SOB at rest, shortness of breath, SOB with excertion; denies: hemoptysis, stridor, wheezing, others Cardiovascular: reports: chest pain; denies: dizzy spells, diaphoresis, Dyspnea on exertion, edema, irregular heart beat, left arm pain, lightheadedness, palpitations, PND, syncope, others Gastrointestinal: denies: abdomen distended, abdominal pain, blood streaked bowels, constipated, diarrhea, dysphagia, difficulty swallowing, hematemesis, melena, nausea, poor appetite, poor fluid intake, rectal bleeding, rectal pain, vomiting, others Genitourinary: denies: abnormal vagina bleeding, burning, dyspareunia, dysuria, flank pain, frequency, hematuria, incontinence, pain, , vagina discharge, urgency, others Neurological: denies: dizziness, fainting, headache, left sided numbness, left sided weakness, numbness, paresthesia, pre-existing deficit, right sided numbness, right sided weakness, seizure, speech problems, tingling, tremors, weakness, others Musculoskeletal: denies: back pain, gout, joint pain, joint swelling, muscle pain, muscle stiffness, neck pain, others Integumetry: denies: bruises, change in color, change in hair/nails, dryness, laceration, lesions, lumps, rash, wounds, others Allergic/Immunocompromised: denies: Difficulty Healing, Frequent Infections, Hives, Itching, others Hematologic/Lymphatic: denies: anemia, blood clots, easy bleeding, easy bruising, swollen glands, others Endocrine: denies: excessive hunger, excessive sweating, excessive thirst, excessive urination, flushing, intolerance to cold, intolerance to heat, unexplained weight gain, unexplained weight loss, others Psychiatric: denies: anxiety, bipolar disorder, depression, hopeless, panic disorder, schizophrenia, sleepless, suicidal, others Physical Exam General Appearance: Moderate Distress HEENT: Normal ENT Inspection, Pharynx Normal, TMs Normal Neck: Full Range of Motion, Non-Tender, Normal, Normal Inspection Respiratory: Chest Non-Tender, Decreased Breath Sounds, No Accessory Muscle Use Cardiovascular: No Edema, No JVD, No Murmur, No Gallop, Normal Peripheral Pulses, Regular Rate/Rhythm Breast Exam: Deferred Gastrointestinal: No Organomegaly, Non Tender, No Pulsatile Mass, Normal Bowel Sounds, Soft Genitalia: Deferred Pelvic: Deferred Rectal: Deferred Extremities: No calf tenderness, Normal capillary refill, Normal inspection, Normal range of motion, Non-tender, No pedal edema Musculoskeletal : Apperance: Normal Neurologic: Alert, 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 Was a procedure done?: No Differential Dx Considerations may include: CHF, COPD, ESRD, dialysis, anemia. Electrolyte imbalance X-Ray, Labs, Meds, VS Vital Signs Date Time Temp Pulse Resp B/P (MAP) Pulse Ox O2 Delivery O2 Flow Rate FiO2 11/25/24 22:30 97.6 67 18 124/54 (77) 96 97.6 11/25/24 20:17 97.8 70 24 127/64 (85) 100 11/25/24 20:17 24 100 Nasal Cannula* 3 32 11/25/24 19:57 66 Lab Test 11/25/24 21:59 11/25/24 21:05 Range/Units Troponin I High Sensitivity 243 *H 244 *H </=34 ng/L White Blood Count 3.3 #L 4.4-10.8 10^3/uL Red Blood Count 3.06 L 4.0-5.20 10^6/uL Hemoglobin 9.1 L 12.2-16.2 g/dL Hematocrit 28.4 #L 36.0-46.0 % Mean Corpuscular Volume 92.8 80.0-100.0 fL Mean Corpuscular Hemoglobin 29.8 28.0-32.0 pg Mean Corpuscular Hemoglobin Concent 32.1 32.0-36.0 g/dL Red Cell Distribution Width 16.5 H 11.8-14.3 % Platelet Count 231 140-450 10^3/uL Mean Platelet Volume 7.4 6.9-10.8 fL Neutrophils (%) (Auto) 84.6 H 37.0-80.0 % Lymphocytes (%) (Auto) 12.5 10.0-50.0 % Monocytes (%) (Auto) 2.6 0.0-12.0 % Eosinophils (%) (Auto) 0.1 0.0-7.0 % Basophils (%) (Auto) 0.2 0.0-2.0 % Neutrophils # (Auto) 2.8 1.6-8.6 10 ^3/uL Lymphocytes # (Auto) 0.4 0.4-5.4 10 ^3/uL Monocytes # (Auto) 0.1 0-1.3 10 ^3/uL Eosinophils # (Auto) 0 0-0.8 10 ^3/uL Basophils # (Auto) 0 0-0.2 10 ^3/uL Nucleated Red Blood Cells 0.3 % Sodium Level 134 L 136-145 mmol/L Potassium Level 4.5 3.5-5.1 mmol/L Chloride Level 94 L 98-107 mmol/L Carbon Dioxide Level 26 20-31 mmol/L Anion Gap 14 5-15 Blood Urea Nitrogen 58 H 9-23 mg/dL Creatinine 9.28 #H 0.550-1.02 mg/dL Glomerular Filtration Rate Calc 4 >90 mL/min BUN/Creatinine Ratio 6.3 L 10.0-20.0 Serum Glucose 130 H 74-106 mg/dL Calcium Level 8.3 L 8.7-10.4 mg/dL EXAM: XY CHEST PORTABLE CLINICAL HISTORY: sob TECHNIQUE: Single AP view of the chest WID: COMPARISON: XY CHEST PORTABLE on DOS: 11/15/24, FINDINGS: Lines and tubes: A stent graft projects over the medial left upper arm. There is a pacer battery in the left abdominal wall and an AICD pacer projecting over the mediastinum. Chest: Cardiomegaly and pulmonary vascular congestion. Calcified plaque projects over the aortic arch. No pleural effusion, pneumothorax, or consolidation. Linear opacities in the bilateral lower lungs likely atelectasis or scarring. The osseous structures are grossly intact. IMPRESSION: Cardiomegaly and pulmonary vascular congestion. Time of 1ST Reevaluation: 20:41 Reevaluation 1ST: Unchanged Patient Education/Counseling: Diagnosis, Treatment Family Education/Counseling: No Family Present Departure 1 Departure Time of Disposition: 23:22 ([place] Authorizaion: [id number] with a worsening shortness of breath likely secondary to missed dialysis. Discussed with [place] who will pick patient up and get her dialysis.) Impression: Primary Impression: Shortness of breath Additional Impression: Missed dialysis Disposition: 02 [facility] Admit to: Med Surg Condition: Serious Critical Care Note Critical Care Time?: Yes (35 min-critical care time only) Critical care comment: Shortness of breath Authorized and Performed by: Jasmine Martinez MD Total critical care time: Approximately 36 minutes Due to a high probability of clinically significant, life threatening deteriorat ion, the patient required my highest level of preparedness to intervene emergently and I personally spent this critical care time directly and personally managing the patient. This critical care time included obtaining a history; examining the patient; pulse oximetry; ordering and review of studies; arranging urgent treatment with development of a management plan; evaluation of patient's response to treatment; frequent reassessment; and, discussions with other providers. This critical care time was performed to assess and manage the high probability of imminent, life-threatening deterioration that could result in multi-organ failure. It was exclusive of separately billable procedures and treating other patients and teaching time. Please see my other sections and the rest of the note for further information on patient assessment and treatment. Stability Stability form required: No Heart Score Heart Score: Heart Score Response (Comments) Value History Moderate Suspicious 1 EKG Repolarization Disturb 1 Age >65 2 Risk Factors >3 or Hx ASHD 2 Troponin Normal limit 0 Total 6 I personally scribed for JASMINE MARTINEZ MD ([email or web address]) on 11/25/24 at 20:46. Electronically submitted by Benny Taylor ([facility]). I personally scribed for JASMINE MARTINEZ MD ([email or web address]) on 11/25/24 at 21:50. Electr onically submitted by Benny Taylor ([facility]). JASMINE MARTINEZ MD Nov 25, 2024 20:46
[2024-11-25 21:18] LABS: Basophils # (auto) 0 10 ^3/uL (0-0.2); Basophils % (auto) 0.2 % (0.0-2.0); Eosinophils # (auto) 0 10 ^3/uL (0-0.8); Eosinophils % (auto) 0.1 % (0.0-7.0); Hematocrit 28.4 % (36.0-46.0); Hemoglobin 9.1 g/dL (12.2-16.2); Lymphocytes # (auto) 0.4 10 ^3/uL (0.4-5.4); Lymphocytes % (auto) 12.5 % (10.0-50.0); Mean Corpuscular Hemoglobin 29.8 pg (28.0-32.0); Mean Corpuscular Hgb Conc. 32.1 g/dL (32.0-36.0); Mean Corpuscular Volume 92.8 fL (80.0-100.0); Monocytes # (auto) 0.1 10 ^3/uL (0-1.3); Monocytes % (auto) 2.6 % (0.0-12.0); Neutrophils # (auto) 2.8 10 ^3/uL (1.6-8.6); Neutrophils % (auto) 84.6 % (37.0-80.0); Nucleated Red Blood Cells % 0.3 %; Platelet Count (auto) 231 10^3/uL (140-450); Red Blood Cells 3.06 10^6/uL (4.0-5.20); Red Cell Distribution Width 16.5 % (11.8-14.3); White Blood Cell 3.3 10^3/uL (4.4-10.8)
--- NOTE | 2024-11-25 21:19 | DVH ---
EXAM: XY CHEST PORTABLE CLINICAL HISTORY: sob TECHNIQUE: Single AP view of the chest WID: COMPARISON: XY CHEST PORTABLE on DOS: 11/15/24, FINDINGS: Lines and tubes: A stent graft projects over the medial left upper arm. There is a pacer battery in t he left abdominal wall and an AICD pacer projecting over the mediastinum. Chest: Cardiomegaly and pulmonary vascular congestion. Calcified plaque projects over the aortic arch. No pleural effusion, pneumothorax, or consolidation. Linear opacities in the bilateral lower lungs li beatriz atelectasis or scarring. The osseous structures are grossly intact. IMPRESSION: Cardiomegaly and pulmonary vascular congestion.
[2024-11-25 21:33] LABS: Potassium 4.5 mmol/L (3.5-5.1)
[2024-11-25 21:34] LABS: Anion Gap 14 (5-15); Carbon Dioxide 26 mmol/L (20-31)
[2024-11-25 21:39] LABS: BUN/Creatinine Ratio 6.3 (10.0-20.0)
[2024-11-25 21:52] LABS: Blood Urea Nitrogen 58 mg/dL (9-23); Calcium 8.3 mg/dL (8.7-10.4); Chloride 94 mmol/L (98-107); Glucose 130 mg/dL (74-106); Sodium 134 mmol/L (136-145)
[2024-11-25 22:30] VITALS: TEMP 97.6
[2024-11-25 23:30] VITALS: PULSE 72; RESP 16; O2SAT 95
[2024-11-26] MEDS: ALBUTEROL SULF 2.5 MG/0.5ML(0.5%) NEB SOLN NEB ONE (00:28)
[2024-11-26] MEDS: IPRATROPIUM BROM 0.5 MG/2.5ML INH SOL NEB ONE (00:28)
[2024-11-26 02:12] VITALS: BP 144/55; PULSE 74; RESP 18; O2SAT 94
[2024-11-26 02:37] LABS: Rapid Influenza B Negative (Negative)
[2024-11-26 02:40] LABS: COVID19 ANTIGEN SOFIA FIA NEGATIVE (NEGATIVE); Rapid Influenza A Positive (Negative)
--- NOTE | 2024-11-26 06:44 | ECG ---
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
== END 2024-11-26 02:45 | disposition short-term general hospital (02) ==
LOC: ER 19:54 → EDBD 19:54 → ER 11-26 02:45
DX: R06.02 Shortness of breath (principal); I13.2 Hypertensive heart and chronic kidney disease with heart failure and with stage 5 chronic kidney disease, or end stage renal disease; I50.9 Heart failure, unspecified; N18.6 End stage renal disease; J44.9 Chronic obstructive pulmonary disease, unspecified; E78.5 Hyperlipidemia, unspecified; Z91.158 Patient's noncompliance with renal dialysis for other reason; Z90.49 Acquired absence of other specified parts of digestive tract; Z90.89 Acquired absence of other organs; Z99.2 Dependence on renal dialysis; Z88.5 Allergy status to narcotic agent; Z86.73 Personal history of transient ischemic attack (TIA), and cerebral infarction without residual deficits; Z79.899 Other long term (current) drug therapy; Z20.822 Contact with and (suspected) exposure to COVID-19
CPT/HCPCS: 36415; 71045; 80048; 84484; 85025; 87426; 87804; 93005; 94640

== ENCOUNTER 2025-06-18 18:16 | Emergency (ER) | payer OTHER ==
[~2025-06-18] VITALS: Ht 157.5 cm; Wt 73.0 kg
--- NOTE | 2025-06-18 19:01 | ED.PDOC ---
Gloria. trauma (HPI) HPI Comments 80-year-old female who came to ER via EMS for fall injury. Patient does have history of hypertension, congestive heart failure, end-stage renal disease, currently on dialysis. Had a ground level fall earlier, a she tripped and she fell over her outstretched left hand, and she hit the right side of her head in the floor. Denies any loss of consciousness. Patient complaining of left wrist pain, right-sided headache and neck pain Chief Complaint: Fall Injury Time Seen by MD: 19:00 Primary Care Provider: Dr. Cox Reviewed notes: Nurses Notes Allergies: Coded Allergies: Diphenhydramine (Verified Allergy, Unknown, 11/25/24) Hydrocodone (Verified Allergy, Unknown, 05/17/18) Home Meds Active Scripts Sucralfate (CARAFATE SUSP) 1 Gm/10 Ml Ss, 1 GM PO BID@0600,2200, #120 ML 5 Refills Prov:SHIRLEY QUINTERO MD 11/12/24 Pantoprazole Sodium Sesquihydr (Pantoprazole Sodium) 40 Mg Tab, 40 MG PO DAILY@0600, #30 TAB 5 Refills Prov:SHIRLEY QUINTERO MD 11/12/24 Reported Medications Sevelamer Carbonate (Renvela) 800 Mg Tab, 2 TAB PO TID 05/18/24 Midodrine Hcl (Midodrine Hcl) 5 Mg Tab, 1 TAB PO BID PRN for DIZZINESS 05/18/24 Calcium Acetate (PHOSLO CAPSULE) 667 Mg Cp, 4 CAP PO TID, #180 CAP 5 Refills 01/01/18 B Complex W/ C (B COMPLEX/VITAMIN C) Vit C Cap, 1 C PO DAILY, CAP 12/30/17 Amiodarone Hcl (Amiodarone Hcl) 200 Mg Tab, 200 MG PO DAILY for 30 Days 12/30/17 Atorvastatin Calcium (Lipitor) 20 Mg Tab, 1 TAB PO HS, #90 TAB 1 Refill 12/30/17 Information Source: Patient Mode of Arrival: EMS Severity: Moderate Timing: Minutes Duration: Since onset Prehospital treatment: C-Collar Location: Head, Neck, (L) Wrist Location of neck pain: (R) Lateral Mechanism: Fall Associated signs and symtoms: Headache Past Medical History PAST MEDICAL HISTORY: CHF, COPD, CVA, ESRD, High Lipids, HTN, TIA Surgical History: Cholecystectomy, Tonsillectomy Surgical History (Other): Dialysis [employer] History: Pt Confused Family History Family History: No family hx of DM, No family hx of Heart elaina, No family hx of HTN, No family hx of Lung elaina Social History Smoker: Non-Smoker Alcohol: Denies ETOH Use Drugs: Denies Drug Use Lives In: Home Constitutional: denies: chills, diaphoresis, fatigue, fever, malaise, sweats, weakness, others EENTM: denies: blurred vision, double vision, ear bleeding, ear discharge, ear drainage, ear pain, ear ringing, eye pain, eye redness, hearing loss, mouth pain, mouth swelling, nasal discharge, nose bleeding, nose congestion, nose pain, photophobia, tearing, throat pain, throat swelling, voice changes, others Respiratory: denies: cough, hemoptysis, orthopnea, SOB at rest, shortness of breath, SOB with excertion, stridor, wheezing, others Cardiovascular: denies: chest pain, dizzy spells, diaphoresis, Dyspnea on exertion, edema, irregular heart beat, left arm pain, lightheadedness, palpitations, PND, syncope, others Gastrointestinal: denies: abdomen distended, abdominal pain, blood streaked bowels, constipated, diarrhea, dysphagia, difficulty swallowing, hematemesis, melena, nausea, poor appetite, poor fluid intake, rectal bleeding, rectal pain, vomiting, others Genitourinary: denies: abnormal vagina bleeding, burning, dyspareunia, dysuria, flank pain, frequency, hematuria, incontinence, pain, , vagina discharge, urgency, others Neurological: reports: headache; denies: dizziness, fainting, left sided numbness, left sided weakness, numbness, paresthesia, pre-existing deficit, right sided numbness, right sided weakness, seizure, speech problems, tingling, tremors, weakness, others Musculoskeletal: reports: joint pain (Left wrist sprain), neck pain; denies: back pain, gout, joint swelling, muscle pain, muscle stiffness, others Integumetry: denies: bruises, change in color, change in hair/nails, dryness, laceration, lesions, lumps, rash, wounds, others Allergic/Immunocompromised: denies: Difficulty Healing, Frequent Infections, Hives, Itching, others Hematologic/Lymphatic: denies: anemia, blood clots, easy bleeding, easy bruising, swollen glands, others Endocrine: denies: excessive hunger, excessive sweating, excessive thirst, excessive urination, flushing, intolerance to cold, intolerance to heat, unexplained weight gain, unexplained weight loss, others Psychiatric: denies: anxiety, bipolar disorder, depression, hopeless, panic disorder, schizophrenia, sleepless, suicidal, others Physical Exam General Appearance: No Apparent Distress, Normal HEENT: Normal ENT Inspection, Pharynx Normal, TMs Normal Neck: Full Range of Motion, Non-Tender, Normal, Normal Inspection Respiratory: Chest Non-Tender, Lungs Clear, No Accessory Muscle Use, No Respiratory Distress, Normal Breath Sounds Cardiovascular: No Edema, No JVD, No Murmur, No Gallop, Normal Peripheral Pulses, Regular Rate/Rhythm Breast Exam: Deferred Gastrointestinal: No Organomegaly, Non Tender, No Pulsatile Mass, Normal Bowel Sounds, Soft Genitalia: Deferred Pelvic: Deferred Rectal: Deferred Extremities: No calf tenderness, Normal capillary refill, Normal inspection, Normal range of motion, Non-tender, No pedal edema Musculoskeletal : Apperance: Normal 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 Was a procedure done?: No Differential Diagnosis Multiple Trauma: Closed Head Injury, Fractures, Spine Injury Neck Injury: Cervical Sprain, Cervical Strain X-Ray, Labs, Meds, VS Vital Signs Date Time Temp Pulse Resp B/P (MAP) Pulse Ox O2 Delivery O2 Flow Rate FiO2 06/18/25 21:23 97.1 78 18 128/57 (80) 95 97.1 06/18/25 20:42 Room Air* 0 21 06/18/25 18:26 98.9 71 18 115/51 93 98.9 Time of 1ST Reevaluation: 18:58 Reevaluation 1ST: Unchanged Patient Education/Counseling: Diagnosis, Treatment Family Education/Counseling: No Family Present Departure 1 Departure Time of Disposition: 21:00 Impression: Primary Impression: End stage renal disease on dialysis Additional Impressions: Closed fracture of left distal radius Head injury Disposition: HOME / SELF CARE / HOMELESS Condition: Stable Discharged With: Self Critical Care Note Critical Care Time?: No Stability Stability form required: No Heart Score Heart Score: Heart Score Response (Comments) Value History N/A 0 EKG N/A 0 Age N/A 0 Risk Factors N/A 0 Troponin N/A 0 Total 0 I personally scribed for JANUARY GALICIA MD ([email or web address]) on 06/18/25 at 19:01. Jami ctronically submitted by Benny Taylor ([facility]). JNAUARY GALICIA MD Jun 18, 2025 19:01
--- NOTE | 2025-06-18 19:23 | DVH ---
CLINICAL INDICATION: pain injury TECHNIQUE: 3 radiographic views of the left hand were obtained. Comparison: XY L FOREARM XRAY on DOS: 06/18/25, R SHOULDER COMPLETE XRAY on DOS: 07/29/19 FINDINGS/IMPRESSION: Osteoarthritic changes left hand. Metallic ring over the index finger finger obscuring bony detail. Cortical irregularity distal radius. Cortical irregularity distal interphalangeal joint of the thumb can not exclude fracture correlate cl inically for tenderness.
--- NOTE | 2025-06-18 19:25 | DVH ---
CLINICAL INDICATION: pain injury TECHNIQUE: 2 radiographic views of the forearm were obtained. Comparison: XY L HAND 3V XRAY on DOS: 06/18/25 FINDINGS/IMPRESSION: Multiple surgical clips in the soft tissues of the proximal and distal left forearm. Vascular calculi are noted in the radial artery. Cortical irregularity of the distal radius correlate for area of interest nondisplaced fracture.
--- NOTE | 2025-06-18 19:33 | DVH ---
Procedure: CT HEAD WITHOUT CONTRAST Study Date and Requested Time: 06/18/2025 06:54 PM History: head injury Comparison: HEAD WITHOUT CONTRAST on DOS: 07/29/19 Dose: CTDI: 59.97 mGy DLP: 1.71 mGycm Technique: Multiplanar images obtained through the brain without intravenous contrast. Findings: Abxr-[id number]-hplhzwmf diffuse brain Atrophy. Mild chronic small vessel ischemic changes. Bilateral basal g anglia physiologic calcification. There is calcification of the falx. No hemorrhages, masses, mass effect, midline shift, herniation or cytotoxic edema following a large v ascular territory. No intra-axial or extra-axial fluid collections. No evidence of hydrocephalus. The basal cisterns are patent. The pituitary gland, sella and parasellar regions are unremarkable. The cerebellar tonsils are in nor mal position. The cerebellum is unremarkable. Bilateral lens replacement. Otherwise, orbits and globes are unremarkable. The paranasal sinuses and mastoids are clear. There are no worrisome calvarial lesions. 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 Mild to moderate right frontal scalp hematoma. Moderate atherosclerotic calcification of the bilat eral carotid siphons. Impression: No evidence of acute intracranial abnormality. [id number] right frontal scalp hematoma.
--- NOTE | 2025-06-18 19:48 | DVH ---
Procedure: CT MAXILLOFACIAL WITHOUT Study Date and Requested Time: 2024 06:56 PM History: pain injury Comparison: None Dose: CTDI: 66.97 mGy DLP: 1263.18 mGycm Technique: Multiplanar images obtained through the face without intravenous contrast. Findings: Minimal right supraorbital soft tissue edema. No evidence of acute fracture or other significant osseous abnormality. Bilateral lens replacement. Otherwise, Orbits and globes grossly unremarkable. Paranasal sinuses and mastoids clear. Nasal septum midline position with right-sided nasal spurring. Nasal cavity and visu alized nasopharynx and oropharynx grossly unremarkable with no evidence of focal lesion. Impression: No evidence of acute traumatic fractures. Mild right supraorbital soft tissue edema.
--- NOTE | 2025-06-18 20:08 | DVH ---
EXAM: CT CERVICAL WITHOUT CONTRAST INDICATION: pain injury EXAM DATE: 06/18/2025 06:59 PM COMPARISON: CT HEAD WITHOUT CONTRAST on DOS: 06/18/25 TECHNIQUE: Multiple axial CT images of the cervical spine were obtained using bone algorithm. Axial a nd coronal reformatting was done. Bone and soft tissue windows were reviewed. Radiation Dose Information: CT Dose: CTDI volume is 20.39 mGy. Dose-length product is 547.25 mGy*cm FINDINGS: The cervical alignment is intact. No acute cervical spine fracture is identified. The vertebral body heights are intact. No suspicious osseous lesions are identified. Bony spondylosis and degenerative disc changes C3 through C7. Calcification of the posterior longitudinal ligament at C3-4. Spinal canal measures 6-7 mm at this le freddy. If cord contusion is of clinical concern recommend MRI. There is no prevertebral soft tissue swelling. IMPRESSION: 1. No evidence of acute cervical spine fracture or traumatic malalignment. 2. Bony spondylosis and degenerative disc changes C3 through C 3. Calcification of the posterior longitudinal ligament at C3-4. Spinal canal at this level measures 6-7 mm. If cord contusion is of clinical concern consider MRI for further evaluation. 4. Spinal canal measures 6-7 mm at this level. 5. All CT scans at this medical facility are performed using dose modulation techniques as appropriat e to a performed exam including the following: Automated exposure control was utilized; adjustment of the MA and/or KV according to patient size; and use of iterative reconstruction technique. All CT scans at this medical facility are performed using dose modulation techniques as appropriate t o a performed exam including the following: Automated exposure control was utilized; adjustment of th e MA and/or KV according to patient size; and use of iterative reconstruction technique.
[2025-06-18 21:23] VITALS: BP 128/57; PULSE 78; RESP 18; TEMP 97.1; O2SAT 95
== END 2025-06-18 21:24 | disposition home or self-care (01) ==
LOC: EDBD 18:16 → ER 18:26
DX: S52.502A Unspecified fracture of the lower end of left radius, initial encounter for closed fracture (principal); S09.8XXA Other specified injuries of head, initial encounter; I13.2 Hypertensive heart and chronic kidney disease with heart failure and with stage 5 chronic kidney disease, or end stage renal disease; N18.6 End stage renal disease; I50.9 Heart failure, unspecified; E78.5 Hyperlipidemia, unspecified; J44.9 Chronic obstructive pulmonary disease, unspecified; Z79.899 Other long term (current) drug therapy; Z86.73 Personal history of transient ischemic attack (TIA), and cerebral infarction without residual deficits; Z88.5 Allergy status to narcotic agent; Z90.49 Acquired absence of other specified parts of digestive tract; Z90.89 Acquired absence of other organs; Z99.2 Dependence on renal dialysis; W01.0XXA Fall on same level from slipping, tripping and stumbling without subsequent striking against object, initial encounter; Y93.89 Activity, other specified; Y92.89 Other specified places as the place of occurrence of the external cause; Y99.8 Other external cause status
CPT/HCPCS: 29125; 70450; 70486; 72125; 73090; 73130